=== PATIENT | male | born 1940 | race Caucasian/White ===

== ENCOUNTER 2018-10-07 17:22 | Inpatient (IN) | payer OTHER ==
--- NOTE | 2018-10-07 17:48 | PDOC ---
History of Present Illness - General Chief Complaint: SIRS, Suspected/Possible Stated Complaint: FEVER Time Seen by Provider: 10/07/18 17:27 - History of Present Illness Initial Comments: 10/07/18 21:00 The patient is a 77 year old male with a history of TBI, Cardiac Arrest, Subarachnoid hemorrhage, respiratory failure s/p trach and peg who presents from [place] for evaluation of fever. Per the patient's NH, the patient has been experiencing worsening fever since being discharged from [facility] 9 days ago. He has been spiking fevers to 105 over the past few days and was started on levaquin prior to being referred to the ED for further evaluation. The patient is non-responsive at baseline due to his TBI and ROS is unobtainable. Past History - Past Medical History Allergies/Adverse Reactions: Allergies Allergy/AdvReac Type Severity Reaction Status Date / Time No Known Allergies Allergy Verified 10/07/18 17:43 Home Medications: Ambulatory Orders Acetaminophen [Tylenol] 650 mg GT Q8H 10/07/18 Amantadine HCl [Amantadine] 100 mg GT BID 10/07/18 Famotidine [Pepcid -] 20 mg GT BID 10/07/18 Finasteride 5 mg GT DAILY 10/07/18 Heparin - 5,000 unit SQ TID 10/07/18 levoFLOXacin 750 MG IVPB [Levaquin 750 mg Premixed Ivpb -] 750 mg IVPB DAILY Cancer: Yes (bening prostatic hyperplasia) Cardiac Disorders: Yes (acute ME) CVA: No (traumatic brain injury) 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 No Apparent Distress HEENT: . No Pharyngeal Erythema, Tonsillar Exudate, Tonsillar Erythema Neck: Trach in place. No Cervical Lymphadenopathy Respiratory/Chest: Decreased breath sounds at the bases with bibasilar rales. No Crackles, Rhonchi, Wheezing Cardiovascular: Irregularly Irregular Rhythm, Regular Rate. No Murmur, Gallops, Rubs Gastrointestinal/Abdominal: Normal Bowel Sounds, Soft. Peg tub in place. No Guarding, Rebound, Tenderness Musculoskeletal: No CVA Tenderness Extremity: Normal Capillary Refill Integumentary: Normal Color, Dry, Warm Neurologic: Non-responsive at baseline Procedures - Central Line Central Line Lumen: triple Central Line Position: femoral (L) Anesthesia: 1% Lidocaine Amount of anesthesia (ccs): 4 Complications: none Post Central Line Insertion: sutured, good blood return ED Treatment Course - LABORATORY CBC & Chemistry Diagram: 10/08/18 05:10 10/08/18 05:10 - RADIOLOGY Radiology Studies Ordered: Category Date Time Status CHEST X-RAY PORTABLE* [RAD] Stat Radiology 10/07/18 17:46 Ordered Medical Decision Making - Critical Care Time Total Critical Care Time (minutes): 45 Critical Care Statement: The care of this patient involved high complexity decision making to prevent further life threatening deterioration of the patient 's condition and/or to evaluate & treat vital organ system(s) failure or risk of failure. - Medical Decision Making 10/07/18 20:06 The patient is a 77 year old male with a history of TBI, Cardiac Arrest, Subarachnoid hemorrhage, respiratory failure s/p trach and peg who presents from [place] for evaluation of fever. Differential includes but is not limited to: Sepsis, Central fever, Infectious, Metabolic Derangement. Given the patient's history and physical exam, we will obtain a cbc, cmp, lactate, vbg, coags, ua, urine culture, blood cultures, chest plain film to evaluate further. We will treat with tylenol, iv fluids, vanc, and zosyn. We will continue to monitor and reassess while here in the ED. 10/07/18 21:07 CBC, lactate, ua are unremarkable. CMP demonstrates elevations in the liver enzymes. Chest plain film demonstrates bilateral lower lobe infiltrates. We discussed the case with Neurology and MICU at [facility] Dr. Kee and Dr. Brownlee who felt that the patient did not require transfer at this time. We discussed the case with our ICU team who accepted the patient for ICU. The patient's BP has remained hypotensive despite fluid resuscitation. We discussed the critical nature of the patient's case with the patient's health care proxy Douglas Sanchez(Son) [phone] who requests that the patient remain full code and has given verbal consent for central line placement. We will continue to monitor and reassess while here in the ED. *DC/Admit/Observation/Transfer Diagnosis at time of Disposition: Sepsis Qualifiers: Sepsis type: sepsis due to unspecified organism Qualified Code(s): A41.9 - Sepsis, unspecified organism - Discharge Dispostion Condition at time of disposition: Guarded Decision to Admit order: Yes - Referrals - Patient Instructions - Post Discharge Activity
[2018-10-07 18:16] LABS: VENOUS PC02 41.3 mmHg (41-51); VENOUS PH 7.44 (7.31-7.41); VENOUS PO2 34.3 mmHg (30-40)
[2018-10-07 18:20] LABS: BASO % 0.2 % (0-2.0); HEMATOCRIT 28.5 % (35.4-49); HEMOGLOBIN 9.5 GM/dL (11.7-16.9); LYMPH % 10.5 % (8-40); MCH 29.3 pg (25.7-33.7); MCHC 33.4 g/dl (32.0-35.9); MEAN CELL VOLUME 87.8 fl (80-96); MEAN PLT VOLUME 10.4 fl (7.5-11.1); MONO % 6.1 % (3.8-10.2); NEUT % 83.2 % (42.8-82.8); PLATELET COUNT 190 K/MM3 (134-434); RBC 3.24 M/mm3 (4.00-5.60); RDW 14.2 % (11.9-15.9); WHITE BLOOD COUNT 6.1 K/mm3 (4.0-10.0)
[2018-10-07] MEDS ORDERED: SODIUM CHLORIDE 1,000 ML IV STA ×2 (18:31→22:08)
[2018-10-07] MEDS ORDERED: PIPERACILLIN/TAZOB 4.5 GM 4.5 GM in DEXTROSE 5%-WATER 100 ML IVPB ONE (18:31)
[2018-10-07] MEDS ORDERED: VANCOMYCIN 1,000 MG in DEXTROSE 5%-WATER - 250 ML IVPB ONE (18:31)
[2018-10-07] MEDS ORDERED: ACETAMINOPHEN 1000 MG/100 ML VIAL (NON FORMULARY) IVPB ONE (18:31)
[2018-10-07 18:34] LABS: URINE APPEARANCE CLEAR; URINE BILIRUBIN NEGATIVE (NEGATIVE); URINE COLOR DK YELLOW; URINE GLUCOSE (UA) NEGATIVE (NEGATIVE); URINE KETONE NEGATIVE (NEGATIVE); URINE LEUK ESTERASE NEGATIVE (NEGATIVE); URINE NITRITE NEGATIVE (NEGATIVE); URINE PROTEIN TRACE (NEGATIVE)
[2018-10-07] MEDS ORDERED: PIPERACILLIN/TAZOB 4.5 GM 4.5 GM/100 ML BAG IVPB ONE (18:34)
[2018-10-07] MEDS ORDERED: VANCOMYCIN 1 GRAM (PRE-DOCKED) 1,000 MG/250 ML BAG IVPB ONE (18:34)
[2018-10-07] MEDS ORDERED: ACETAMINOPHEN INJECTION 100 ML IVPB ONE (18:34)
[2018-10-07 18:36] LABS: INR 2.04 (0.83-1.09); PROTHROMBIN TIME (PATIENT) 24.2 SEC (9.7-13.0)
[2018-10-07 18:38] LABS: ACTIVATED PTT 31.8 SECONDS (25.2-36.5)
[2018-10-07 18:45] LABS: ALBUMIN 1.7 g/dl (3.4-5.0); BILIRUBIN,TOTAL 0.6 mg/dL (0.2-1); BLOOD UREA NITROGEN 28.1 mg/dL (7-18); CALCIUM 7.2 mg/dL (8.5-10.1); CREATININE 0.7 mg/dL (0.55-1.3); TOT PROT 5.1 g/dl (6.4-8.2)
--- NOTE | 2018-10-07 18:56 | PDOC ---
Documentation entered by Petra Shane SCRIBE, acting as scribe for Lora Brownlee MD. Lora Brownlee MD: This documentation has been prepared by the vikaibe, Petra Shane SCRIBE, under my direction and personally reviewed by me in its entirety. I confirm that the documentation accurately reflects all work, treatment, procedures, and medical decision making performed by me. Attending Attestation - Resident Resident Name: Wyatt Moctezuma - ED Attending Attestation I have performed the following: I have examined & evaluated the patient, The case was reviewed & discussed with the resident, I agree w/resident's findings & plan, Exceptions are as noted - HPI HPI: 10/07/18 18:37 The patient is a 77-year-old male with a past medical history significant for C- spine fracture, trach in place, peg tube in place, TBI and hx of Cardiac arrest (2 weeks ago) ad subarachnoid hemorrhage presents to the emergency department via EMS from [facility] with a fever. Unable to obtain a history from the patient due to clinical status. History obtained from the staff at the [facility]. Per [facility], the patients been having 4-5 days of fever, the patient was started on Levaquin and 650 Tylenol today, the last dose was 3:45 pm. Allergies: NKDA PCP: Dr. Kristal Julio. - Physicial Exam PE: 10/07/18 18:46 GENERAL: The patient is not responsive to examiners, He appears diaphoretic, temp 104.7 ENT: Trach in place, Dry mucous membranes, eyes intermittently opening spontaneously NECK: Cervical collar loosely applied LUNGS: Rhoncerous, coarse breath sounds noted bilaterally at bases, no wheezes, no crackles. HEART: Irregularly irregular, faint heart sounds ABDOMEN: Soft, G tube in place EXTREMITIES: No obvious deformities noted NEUROLOGICAL: Unresponsive to examiner, (+) voluntary movements of the legs, Unable to test Sensation SKIN: decubitus noted, stage 2, no surrounding erythema 10/07/18 18:53 - Critical Care Time Total Critical Care Time: 60 Critical Care Statement: The care of this patient involved high complexity decision making to prevent further life threatening deterioration of the patient 's condition and/or to evaluate & treat vital organ system(s) failure or risk of failure. - Medical Decision Making 10/07/18 18:49 Afib rate of 80 bpm, axis nml, intervals nml, no st elevation or depression, t waves inverted v3, low voltage 77 yo M presenting with fevers from [facility] Pt has no records in this system, was sent there from [facility] Briefly, pt s/p subdural hemorrhage requiring evacuation and cardiac arrest with resulting tracheostomy and feeding tube Per report, pt has been noted to have fevers for the past 4 days was given a dose of Levaquin and Tylenol Pt can not provide any historical information DD: Pt fever could be the result of Pneumonia, UTI, Intra-abdominal pathology, decubitus Pt has had Intracranial pathology and fever may be due to central cause Will do: Labs CXR CT head/cspine/chest Pt signed out to Dr Muro CXR: bibasilar infiltrate/effusion Temp 104.7 will give Tylenol IV (pt had recent subdural) 10/07/18 19:24 Call placed to [facility] transfer center for ER to ER transfer. Case discussed with Dr. Pearl Thomas. 10/07/18 19:45 Case discussed with Neurosurgery Dr. Arechiga. 10/07/18 20:04 [facility] ICU called. Spoke with Dr. Gardner 10/09/18 07:24
--- NOTE | 2018-10-07 20:12 | PDOC ---
*Physical Exam - Vital Signs Last Vital Signs Temp Pulse Resp BP Pulse Ox 102.4 F H 82 15 84/64 L 99 10/07/18 19:42 10/07/18 19:41 10/07/18 17:52 10/07/18 19:41 10/07/18 19:41 ED Treatment Course - LABORATORY CBC & Chemistry Diagram: 10/07/18 18:03 10/07/18 18:03 - ADDITIONAL ORDERS Additional order review: Laboratory Results 10/07/18 10/07/18 10/07/18 18:03 18:03 18:03 PT with INR INR PTT (Actin FS) VBG pH POC VBG pCO2 POC VBG pO2 VBG HCO3 VBG O2 Sat (Britney) VBG Base Excess Sodium 131 L Potassium 5.0 Chloride 97 L Carbon Dioxide 27 Anion Gap 7 L BUN 28.1 H Creatinine 0.7 Est GFR (CKD-EPI)AfAm 105.50 Est GFR (CKD-EPI)NonAf 91.03 Random Glucose 125 H Lactic Acid 1.5 Calcium 7.2 L Total Bilirubin 0.6 AST 393 H ALT 638 H Alkaline Phosphatase 231 H Troponin I 0.03 Total Protein 5.1 L Albumin 1.7 L Urine Color Urine Appearance Urine pH Ur Specific [place] Urine Protein Urine Glucose (UA) Urine Ketones Urine Blood Urine Nitrite Urine Bilirubin Urine Urobilinogen Ur Leukocyte Esterase 10/07/18 10/07/18 10/07/18 18:03 18:03 18:00 PT with INR 24.20 H INR 2.04 H PTT (Actin FS) 31.8 VBG pH 7.44 H POC VBG pCO2 41.3 POC VBG pO2 34.3 VBG HCO3 27.3 VBG O2 Sat (Britney) 63.3 L VBG Base Excess 3.3 H Sodium Potassium Chloride Carbon Dioxide Anion Gap BUN Creatinine Est GFR (CKD-EPI)AfAm Est GFR (CKD-EPI)NonAf Random Glucose Lactic Acid Calcium Total Bilirubin AST ALT Alkaline Phosphatase Troponin I Total Protein Albumin Urine Color Dk yellow Urine Appearance Clear Urine pH 5.0 Ur Specific [place] 1.022 Urine Protein Trace Urine Glucose (UA) Negative Urine Ketones Negative Urine Blood Negative Urine Nitrite Negative Urine Bilirubin Negative Urine Urobilinogen 1.0 Ur Leukocyte Esterase Negative 10/07/18 18:03 RBC 3.24 L MCV 87.8 MCHC 33.4 RDW 14.2 MPV 10.4 Neutrophils % 83.2 H Lymphocytes % 10.5 Monocytes % 6.1 Eosinophils % 0.0 Basophils % 0.2 - Medications Given in the ED: ED Medications Discontinued Medications Generic Name Dose Route Start Last Admin Trade Name Radha PRN Reason Stop Dose Admin Acetaminophen 1,000 mg 10/07/18 18:31 10/07/18 18:43 Ofirmev Injection - IVPB 10/07/18 18:32 1,000 mg ONCE ONE Administration Sodium Chloride 1,000 mls @ 1,000 mls/hr 10/07/18 18:31 10/07/18 18:43 Normal Saline - IV 10/07/18 19:30 1,000 mls/hr ASDIR STA Administration Vancomycin HCl 1,000 mg/ 250 mls @ 166.667 mls/hr 10/07/18 18:31 10/07/18 19: 13 Dextrose IVPB 10/07/18 20:00 166.667 mls/hr ONCE ONE Administration Piperacillin Sod/Tazobactam 100 mls @ 200 mls/hr 10/07/18 18:31 10/07/18 18: 43 Sod 4.5 gm/ Dextrose IVPB 10/07/18 19:00 200 mls/hr ONCE ONE Administration Protocol Medical Decision Making - Medical Decision Making 10/07/18 20:10 Received on signout. Pt is febrile; from [place]; trauma 2 weeks ago; seen at [facility] and stabilized and sent to [place]. Pt is on trach collar; bedridden; TBI and SAH x 2 in the past 2 weeks after falling down steps. Pt originally seen in [facility]; we attempted to transfer the pt there, as he has all records there; however [facility] docs are refusing pt accept, as they feel that this is a new fever unrelated to old injuries. 10/08/18 03:37 Pt admitted to ICU. *DC/Admit/Observation/Transfer Diagnosis at time of Disposition: Sepsis - Discharge Dispostion Condition at time of disposition: Guarded - Referrals - Patient Instructions - Post Discharge Activity
[2018-10-07 20:17] LABS: PLATELET ESTIMATE ADEQUATE
--- NOTE | 2018-10-07 20:45 | CONSULT ---
Consultation: REQUESTING PROVIDER: Dr. Muro CONSULT REQUEST: We have been asked to medically evaluate this patient for ICU admission HISTORY OF PRESENT ILLNESS: Significant history obtained from chart paperwork, [facility] nursing staff, and patient's son (Douglas Lovelace [phone]). Patient is a 77 year old male with history of traumatic brain injury, subarachnoid hemorrhage, subdural hematoma, cardiac arrest, C4 spinous process fracture, Parkinson's disease, recently discharged from [facility] presents from [facility] due to fever reported for 8 days. Per [facility] nursing staff, patient has been intermittently febrile since discharge from [facility]. Further, discharge paperwork from [facility] reports the fever had been worked up: bronchoalveolar lavage culture grew Kelbsiella; treated with Ceftriaxone, repeat fevers later in hospital course also treated with Ceftriaxone. CT head at [facility] noted left subdural hematoma, left frontal subarrachnoid hemorrhage, right temporal intreaparenchymal hemorrhage without significant midline shift. C4 spinous process fracture noted. Patient noted to be hypotensive to 80s /40s. Central venous catheter placed in emergency department. Goals of care discussed with son who confirms patient is full code. Surgical history: knee surgery, cataract surgery, pacemaker placement PEG tube placement, tracheostomy placement, Allergies: No known drug, or food allergies Social history: Former smoker: quit 50 years ago. Denies excessive alcohol consumption. 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 REVIEW OF SYSTEMS: As per HPI. Unable to obtain further due to patient's clinical condition. PHYSICAL EXAMINATION Vital Signs - 24 hr 10/07/18 10/07/18 10/07/18 17:28 17:46 17:52 Temperature 104.7 F H 104.7 F H Pulse Rate 140 H Pulse Rate [ Apical] Respiratory 36 H 15 Rate Blood Pressure 101/65 Blood Pressure [Right Arm] O2 Sat by Pulse 100 Oximetry (%) 10/07/18 10/07/18 10/07/18 18:45 19:41 19:42 Temperature 102.4 F H 102.4 F H Pulse Rate 95 H Pulse Rate [ 82 Apical] Respiratory Rate Blood Pressure Blood Pressure 84/64 L [Right Arm] O2 Sat by Pulse 99 99 Oximetry (%) 10/07/18 20:10 Temperature Pulse Rate Pulse Rate [ Apical] Respiratory 26 H Rate Blood Pressure Blood Pressure [Right Arm] O2 Sat by Pulse Oximetry (%) GENERAL: Awake, grimaces to sternal rub. No acute distress. HEAD: Normocephalic. Scar anterior forehead. Bruising along left sided face. EYES: Pupils equal, round and reactive to light, extraocular movements intact, sclera anicteric, conjunctiva clear. No lid lag. EARS, NOSE, THROAT: Dry mucous membranes. Tracheostomy tube in place. No drainage noted. NECK: Supple, without lymphadenopathy. Central venous catheter in place. LUNGS: Mechanical breath sounds auscultated, with bilateral rhonchi. HEART: Irregular rate and rhythm. Normal S1 and S2 without murmur, rub or gallop. ABDOMEN: Soft, nontender, not distended, normoactive bowel sounds, no guarding, no rebound, no masses. Hepatomegaly palpated and percussed 3cm below costal margin. PEG tube in place, with ostomy clean, dry. EXTREMITIES: 1+ radial, dorsalis pedis pulses bilaterally. Warm, well-perfused. No cyanosis. No peripheral edema. NEUROLOGICAL: Patient moving extremities. Tracking movement with eyes. SKIN: Warm, dry. Deep tissue injury noted at right buttock, and sacrum. Laboratory Results - last 24 hr 10/07/18 10/07/18 10/07/18 18:00 18:03 18:03 WBC 6.1 RBC 3.24 L Hgb 9.5 L Hct 28.5 L MCV 87.8 MCH 29.3 MCHC 33.4 RDW 14.2 Plt Count 190 MPV 10.4 Absolute Neuts (auto) 5.1 Neutrophils % 83.2 H Neutrophils % (Manual) 87.0 H Band Neutrophils % 1.0 Lymphocytes % 10.5 Lymphocytes % (Manual) 10.0 Monocytes % 6.1 Monocytes % (Manual) 2 L Eosinophils % 0.0 Eosinophils % (Manual) 0.0 Basophils % 0.2 Basophils % (Manual) 0.0 Nucleated RBC % 0 Platelet Estimate Adequate PT with INR 24.20 H INR 2.04 H PTT (Actin FS) 31.8 VBG pH POC VBG pCO2 POC VBG pO2 VBG HCO3 VBG O2 Sat (Britney) VBG Base Excess Sodium Potassium Chloride Carbon Dioxide Anion Gap BUN Creatinine Est GFR (CKD-EPI)AfAm Est GFR (CKD-EPI)NonAf Random Glucose Lactic Acid Calcium Total Bilirubin AST ALT Alkaline Phosphatase Troponin I Total Protein Albumin Urine Color Dk yellow Urine Appearance Clear Urine pH 5.0 Ur Specific [place] 1.022 Urine Protein Trace Urine Glucose (UA) Negative Urine Ketones Negative Urine Blood Negative Urine Nitrite Negative Urine Bilirubin Negative Urine Urobilinogen 1.0 Ur Leukocyte Esterase Negative Acetaminophen 10/07/18 10/07/18 10/07/18 18:03 18:03 18:03 WBC RBC Hgb Hct MCV MCH MCHC RDW Plt Count MPV Absolute Neuts (auto) Neutrophils % Neutrophils % (Manual) Band Neutrophils % Lymphocytes % Lymphocytes % (Manual) Monocytes % Monocytes % (Manual) Eosinophils % Eosinophils % (Manual) Basophils % Basophils % (Manual) Nucleated RBC % Platelet Estimate PT with INR INR PTT (Actin FS) VBG pH 7.44 H POC VBG pCO2 41.3 POC VBG pO2 34.3 VBG HCO3 27.3 VBG O2 Sat (Britney) 63.3 L VBG Base Excess 3.3 H Sodium 131 L Potassium 5.0 Chloride 97 L Carbon Dioxide 27 Anion Gap 7 L BUN 28.1 H Creatinine 0.7 Est GFR (CKD-EPI)AfAm 105.50 Est GFR (CKD-EPI)NonAf 91.03 Random Glucose 125 H Lactic Acid 1.5 Calcium 7.2 L Total Bilirubin 0.6 AST 393 H ALT 638 H Alkaline Phosphatase 231 H Troponin I Total Protein 5.1 L Albumin 1.7 L Urine Color Urine Appearance Urine pH Ur Specific [place] Urine Protein Urine Glucose (UA) Urine Ketones Urine Blood Urine Nitrite Urine Bilirubin Urine Urobilinogen Ur Leukocyte Esterase Acetaminophen 10/07/18 18:03 WBC RBC Hgb Hct MCV MCH MCHC RDW Plt Count MPV Absolute Neuts (auto) Neutrophils % Neutrophils % (Manual) Band Neutrophils % Lymphocytes % Lymphocytes % (Manual) Monocytes % Monocytes % (Manual) Eosinophils % Eosinophils % (Manual) Basophils % Basophils % (Manual) Nucleated RBC % Platelet Estimate PT with INR INR PTT (Actin FS) VBG pH POC VBG pCO2 POC VBG pO2 VBG HCO3 VBG O2 Sat (Britney) VBG Base Excess Sodium Potassium Chloride Carbon Dioxide Anion Gap BUN Creatinine Est GFR (CKD-EPI)AfAm Est GFR (CKD-EPI)NonAf Random Glucose Lactic Acid Calcium Total Bilirubin AST ALT Alkaline Phosphatase Troponin I 0.03 Total Protein Albumin Urine Color Urine Appearance Urine pH Ur Specific [place] Urine Protein Urine Glucose (UA) Urine Ketones Urine Blood Urine Nitrite Urine Bilirubin Urine Urobilinogen Ur Leukocyte Esterase Acetaminophen 8.8 L ASSESSMENT/PLAN: Neurologic History of traumatic brain injury, subarrachnoid hemorrhage Parkinson's disease -CT head non contrast -CT cervical spine -Amantadine 100mg PO BID -Aspiration precautions Cardiovascular History of cardiac arrest Afib -EKG shows Afib at 80BPM. Currently rate controlled. Uncertain duration; son states that patient may have history of 'irregular heart rate'. -Will hold off on anticoagulation given recent brain bleed -Cardiac monitoring -Cardiac ECHO Pulmonary Acute on chronic hypoxic respiratory failure -Patient is s/p tracheostomy. Ventilator settings (increased) RR 10, TV 500, FiO2 80%, PEEP 5 -Chest radiograph reveals questionable infiltrates in right lower lobe -ABG pH 7.47, pCO2 35.5, pO2 153, HCO3 25.7 -Maintain oxygen saturation greater than 90% Infectious disease Fevers potentially central in origin given patient's history of traumatic brain injury, and subarachnoid hemorrhage. However cannot rule out shock, secondary to sepsis. -Lactic acid 1.5 -> 0.9 upon repeat -Follow blood cultures, urine cultures -Empiric Vancomycin, Zosyn -Patient received IV normal saline 30mL/ kg as bolus. Continue maintenance fluids at 75mL/ hour -Infectious disease consult (Dr. Gonzalez) Gastrointestinal Transaminitis: AST 393 ALT 638 Alkaline phostphatase 231, total bilirubin 0.6 -Appears hepatocellular pattern; may be secondary to shock liver from recent cardiac arrest. -Will need to obtain prior labs from [facility] -Acetamenophen level 8.8 -PEG tube site clean, dry. -Right upper quadrant ultrasound Hematology -PT 24.2, INR 2.04 -likely secondary to poor hepatic function. -No oral anticoagulant medications noted in [facility] medicine reconciliation -Follow CBC, PT/INR FEN -IV normal saline -Hyponatremic, hypochloremic. Follow CMP, replete as necessary -NPO Prophylaxis -SCDs bilateral lower extremities. Holding chemical anticoagulation due to recent intracranial bleeding. Disposition: We will continue to follow the patient. Thank you for this consultative opportunity. Visit type - Emergency Visit Emergency Visit: Yes ED Registration Date: 10/07/18 Care time: The patient presented to the Emergency Department on the above date and was hospitalized for further evaluation of their emergent condition. - New Patient This patient is new to me today: Yes Date on this admission: 10/07/18 - Critical Care Critical Care patient: Yes Total Critical Care Time (in minutes): 37 Critical Care Statement: The care of this patient involved high complexity decision making to prevent further life threatening deterioration of the patient 's condition and/or to evaluate & treat vital organ system(s) failure or risk of failure.
--- NOTE | 2018-10-07 22:54 | HP ---
CHIEF COMPLAINT: fever PCP: Sumanth HISTORY OF PRESENT ILLNESS: 77-year-old male with a past medical history significant for C-spine fracture, trach in place, peg tube in place, TBI and hx of Cardiac arrest (2 weeks ago), afib, ad subarachnoid/subdural hemorrhage (evaluated by ANDREA) presents to the emergency department via EMS from [facility] with a fever. Unable to obtain a history from the patient due to clinical status. History obtained from the staff at the [place]. Patient was allegedly having fevers even at [facility] and was worked up already. ER course was notable for: (1) head ct (2) vancomycin (3) zosyn Recent Travel: unknown PAST MEDICAL HISTORY: as above PAST SURGICAL HISTORY: unknown Social History: Smoking:unknown Alcohol: unknown Drugs: unknown Family History: unknown Allergies No Known Allergies Allergy (Verified 10/07/18 17:43) HOME MEDICATIONS: Home Medications Medication Instructions Recorded Acetaminophen [Tylenol] 650 mg GT Q8H 10/07/18 Amantadine HCl [Amantadine] 100 mg GT BID 10/07/18 Famotidine [Pepcid -] 20 mg GT BID 10/07/18 Finasteride 5 mg GT DAILY 10/07/18 Heparin - 5,000 unit SQ TID 10/07/18 levoFLOXacin 750 MG IVPB [Levaquin 750 mg IVPB DAILY 10/07/18 750 mg Premixed Ivpb -] REVIEW OF SYSTEMS - unable to obtain PHYSICAL EXAMINATION Vital Signs - 24 hr 10/07/18 10/07/18 10/07/18 17:28 17:46 17:52 Temperature 104.7 F H 104.7 F H Pulse Rate 140 H Pulse Rate [ Apical] Respiratory 36 H 15 Rate Blood Pressure 101/65 Blood Pressure [Right Arm] O2 Sat by Pulse 100 Oximetry (%) 10/07/18 10/07/18 10/07/18 18:45 19:41 19:42 Temperature 102.4 F H 102.4 F H Pulse Rate 95 H Pulse Rate [ 82 Apical] Respiratory Rate Blood Pressure Blood Pressure 84/64 L [Right Arm] O2 Sat by Pulse 99 99 Oximetry (%) 10/07/18 10/07/18 10/07/18 20:10 20:53 22:45 Temperature Pulse Rate Pulse Rate [ 84 Apical] Respiratory 26 H 18 23 H Rate Blood Pressure Blood Pressure 92/49 L [Right Arm] O2 Sat by Pulse 100 Oximetry (%) GENERAL: unresponsive HEAD: Normal with no signs of trauma. EYES: Pupils equal, round and reactive to light, extraocular movements intact, sclera anicteric, conjunctiva clear. No lid lag. EARS, NOSE, THROAT: Ears normal, nares patent, oropharynx clear without exudates. Moist mucous membranes. NECK: trach+ LUNGS: coarse breath sounds b/l HEART: Regular rate and rhythm, normal S1 and S2 without murmur, rub or gallop. ABDOMEN: Soft, nontender, not distended, normoactive bowel sounds, no guarding, no rebound, no masses/ PEG MUSCULOSKELETAL: Normal range of motion at all joints. No bony deformities or tenderness. No CVA tenderness. UPPER EXTREMITIES: 2+ pulses, warm, well-perfused. No cyanosis. No clubbing. No peripheral edema. LOWER EXTREMITIES: 2+ pulses, warm, well-perfused. No calf tenderness. No peripheral edema. NEUROLOGICAL: s/p TBI PSYCHIATRIC: unresponsive SKIN: Warm, dry, normal turgor, no rashes or lesions noted, normal capillary refill. reported stage 1 sacral ulcer Laboratory Results - last 24 hr 10/07/18 10/07/18 10/07/18 18:00 18:03 18:03 WBC 6.1 RBC 3.24 L Hgb 9.5 L Hct 28.5 L MCV 87.8 MCH 29.3 MCHC 33.4 RDW 14.2 Plt Count 190 MPV 10.4 Absolute Neuts (auto) 5.1 Neutrophils % 83.2 H Neutrophils % (Manual) 87.0 H Band Neutrophils % 1.0 Lymphocytes % 10.5 Lymphocytes % (Manual) 10.0 Monocytes % 6.1 Monocytes % (Manual) 2 L Eosinophils % 0.0 Eosinophils % (Manual) 0.0 Basophils % 0.2 Basophils % (Manual) 0.0 Nucleated RBC % 0 Platelet Estimate Adequate PT with INR 24.20 H INR 2.04 H PTT (Actin FS) 31.8 VBG pH POC VBG pCO2 POC VBG pO2 VBG HCO3 VBG O2 Sat (Britney) VBG Base Excess Sodium Potassium Chloride Carbon Dioxide Anion Gap BUN Creatinine Est GFR (CKD-EPI)AfAm Est GFR (CKD-EPI)NonAf Random Glucose Lactic Acid Calcium Total Bilirubin AST ALT Alkaline Phosphatase Troponin I Total Protein Albumin Urine Color Dk yellow Urine Appearance Clear Urine pH 5.0 Ur Specific [place] 1.022 Urine Protein Trace Urine Glucose (UA) Negative Urine Ketones Negative Urine Blood Negative Urine Nitrite Negative Urine Bilirubin Negative Urine Urobilinogen 1.0 Ur Leukocyte Esterase Negative Acetaminophen 10/07/18 10/07/18 10/07/18 18:03 18:03 18:03 WBC RBC Hgb Hct MCV MCH MCHC RDW Plt Count MPV Absolute Neuts (auto) Neutrophils % Neutrophils % (Manual) Band Neutrophils % Lymphocytes % Lymphocytes % (Manual) Monocytes % Monocytes % (Manual) Eosinophils % Eosinophils % (Manual) Basophils % Basophils % (Manual) Nucleated RBC % Platelet Estimate PT with INR INR PTT (Actin FS) VBG pH 7.44 H POC VBG pCO2 41.3 POC VBG pO2 34.3 VBG HCO3 27.3 VBG O2 Sat (Britney) 63.3 L VBG Base Excess 3.3 H Sodium 131 L Potassium 5.0 Chloride 97 L Carbon Dioxide 27 Anion Gap 7 L BUN 28.1 H Creatinine 0.7 Est GFR (CKD-EPI)AfAm 105.50 Est GFR (CKD-EPI)NonAf 91.03 Random Glucose 125 H Lactic Acid 1.5 Calcium 7.2 L Total Bilirubin 0.6 AST 393 H ALT 638 H Alkaline Phosphatase 231 H Troponin I Total Protein 5.1 L Albumin 1.7 L Urine Color Urine Appearance Urine pH Ur Specific [place] Urine Protein Urine Glucose (UA) Urine Ketones Urine Blood Urine Nitrite Urine Bilirubin Urine Urobilinogen Ur Leukocyte Esterase Acetaminophen 10/07/18 18:03 WBC RBC Hgb Hct MCV MCH MCHC RDW Plt Count MPV Absolute Neuts (auto) Neutrophils % Neutrophils % (Manual) Band Neutrophils % Lymphocytes % Lymphocytes % (Manual) Monocytes % Monocytes % (Manual) Eosinophils % Eosinophils % (Manual) Basophils % Basophils % (Manual) Nucleated RBC % Platelet Estimate PT with INR INR PTT (Actin FS) VBG pH POC VBG pCO2 POC VBG pO2 VBG HCO3 VBG O2 Sat (Britney) VBG Base Excess Sodium Potassium Chloride Carbon Dioxide Anion Gap BUN Creatinine Est GFR (CKD-EPI)AfAm Est GFR (CKD-EPI)NonAf Random Glucose Lactic Acid Calcium Total Bilirubin AST ALT Alkaline Phosphatase Troponin I 0.03 Total Protein Albumin Urine Color Urine Appearance Urine pH Ur Specific [place] Urine Protein Urine Glucose (UA) Urine Ketones Urine Blood Urine Nitrite Urine Bilirubin Urine Urobilinogen Ur Leukocyte Esterase Acetaminophen 8.8 L ekg reviewed ASSESSMENT/PLAN: #Fever- likely central fever, less likely sepsis as patient was likely worked up at previous hospital however will treat empirically with antibiotics for now , martins culture. May possibly be sepsis secondary to HAP as Fio2 requirement has increased to 80% fio2, possible cxr infiltrates. Lactate was wnl, borderline low bp. -icu for monitoring -blood cultures x2 -urine culture -ua -sputum culture -zosyn/vancomycin empirically -echo -id consult -pulm consult- Dr. Alex -obtain records from [facility] about fever w/u -abg, adjust vent settings accordly #Subdural/subarachnoid bleed - asssessed at [facility] already -head CT , c spine ct -avoid nsaids, asa, heparin sc -consider ANDREA eval -discuss with family goals of care #afib - no ac -metoprolol for rate control -Tube feeds -bgm -scds for dv ppx see resident note for details Visit type - Emergency Visit Emergency Visit: Yes Care time: The patient presented to the Emergency Department on the above date and was hospitalized for further evaluation of their emergent condition. - New Patient This patient is new to me today: Yes Date on this admission: 10/07/18 - Critical Care Critical Care patient: No
[2018-10-07 23:02] LABS: ARTERIAL BLD GAS O2 SATURATION 99.5 % (95-98); ARTERIAL BLOOD GAS BASE EXCESS 2.5 meq/l (-2-2); ARTERIAL BLOOD GAS PCO2 35.5 mmHg (35-45); ARTERIAL BLOOD GAS PO2 153 mmHg (80-105); ARTERIAL BLOOD GAS pH 7.47 (7.35-7.45)
[2018-10-07 23:04] LABS: ALLENS TEST POSITIVE
[2018-10-07] MEDS: SODIUM CHLORIDE 1,000 ML IV SCH (23:27)
[2018-10-08] MEDS ORDERED: VANCOMYCIN 1 GM in D5W (PRE-DOCKED) 1,000 MG/250 ML IVPB ONE ×2 (00:53→06:00)
[2018-10-08] MEDS ORDERED: PIPERACILLIN/TAZOBACTAM 4.5 GM VIAL IVPB ONE ×3 (02:16→17:17)
[2018-10-08] MEDS ORDERED: DEXTROSE 5%-WATER 100 ML IVPB ONE ×3 (02:16→17:17)
[2018-10-08] MEDS ORDERED: PIPERACILLIN/TAZOB 4.5 GM 4.5 GM in DEXTROSE 5%-WATER 100 ML IVPB ONE ×2 (03:00→15:00)
[2018-10-08 05:51] LABS: HEMOGLOBIN 9.4 GM/dL (11.7-16.9)
[2018-10-08 05:59] LABS: BASO % 0.3 % (0-2.0); HEMATOCRIT 28.3 % (35.4-49); LYMPH % 16.5 % (8-40); MCH 29.2 pg (25.7-33.7); MCHC 33.3 g/dl (32.0-35.9); MEAN CELL VOLUME 87.7 fl (80-96); MEAN PLT VOLUME 9.9 fl (7.5-11.1); MONO % 7.9 % (3.8-10.2); NEUT % 75.3 % (42.8-82.8); PLATELET COUNT 150 K/MM3 (134-434); RBC 3.22 M/mm3 (4.00-5.60); RDW 13.8 % (11.9-15.9); WHITE BLOOD COUNT 6.3 K/mm3 (4.0-10.0)
[2018-10-08] MEDS: INSULIN SLIDING SCALE (NOVOLOG) 1 VIAL SQ SCH ×4 (06:16→21:33)
[2018-10-08 06:24] LABS: ALBUMIN 1.5 g/dl (3.4-5.0); BILIRUBIN,DIRECT 0.5 mg/dL (0.0-0.2); BILIRUBIN,TOTAL 0.8 mg/dL (0.2-1); BLOOD UREA NITROGEN 23.6 mg/dL (7-18); CALCIUM 7.1 mg/dL (8.5-10.1); CREATININE 0.6 mg/dL (0.55-1.3); POTASSIUM 4.3 mmol/L (3.5-5.1); TOT PROT 4.5 g/dl (6.4-8.2)
--- NOTE | 2018-10-08 09:13 | CON.ID ---
Consult Consult Specialty:: infectious disease Reason for Consultation:: fever - History of Present Illness Chief Complaint: fever History of Present Illness: 77 yo ma PMH of cardiac arrest, SAH/SDH after fall on stairs, s/p trach and PEG transferred to SNF on 09/29 he has had intermittent fevers both there and after transfer per ER noted he was treated for pneumonia with rocephin in the hospital he was also bronched in the hospital currently full code admitted to ICU for fever and hypotension - History Source History Provided By: Medical Record Limitations to Obtaining History: Clinical Condition - Past Medical History SUB PRIOR: Yes: Parkinson's, Other (SAH/SDH, c4 spinous fracture) Cardio/Vascular: Yes: Other (cardiac arrest) Pulmonary: Yes: Pneumonia, Previously Intubated (now with trach) - Past Surgical History Past Surgical History: Yes: Cataract Removal, Permanent Pacemaker Additional Surgical History: tracheostomy, PEG, knee surgery - Alcohol/Substance Use Hx Alcohol Use: (trach non verbal) History of Substance Use: reports: None - Smoking History Smoking history: Unknown if ever smoked Have you smoked in the past 12 months: No - Social History Usual Living Arrangement: Prison ADL: Support Services 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 History of Recent Travel: No Home Medications - Allergies Allergies/Adverse Reactions: Allergies Allergy/AdvReac Type Severity Reaction Status Date / Time No Known Allergies Allergy Verified 10/07/18 17:43 - Home Medications Home Medications: Ambulatory Orders Acetaminophen [Tylenol] 650 mg GT Q8H 10/07/18 Amantadine HCl [Amantadine] 100 mg GT BID 10/07/18 Famotidine [Pepcid -] 20 mg GT BID 10/07/18 Finasteride 5 mg GT DAILY 10/07/18 Heparin - 5,000 unit SQ TID 10/07/18 levoFLOXacin 750 MG IVPB [Levaquin 750 mg Premixed Ivpb -] 750 mg IVPB DAILY Family Disease History - Family Disease History Family History: Unable to Obtain Review of Systems Unable to obtain ROS, reason: per HPI Physical Exam Vital Signs: Vital Signs Temperature 100.7 F H 10/08/18 06:00 Pulse Rate 77 10/08/18 08:28 Respiratory Rate 17 10/08/18 08:28 Blood Pressure 90/40 L 10/08/18 06:00 O2 Sat by Pulse Oximetry (%) 95 10/08/18 08:28 Constitutional: Yes: Thin Eyes: Yes: Conjunctiva Clear HENT: Yes: Other (fading ecchymoses on his head) Neck: Yes: Other (tracheostomy) Cardiovascular: Yes: Regular Rate and Rhythm Respiratory: Yes: CTA Bilaterally, Diminished Gastrointestinal: Yes: Normal Bowel Sounds, Soft, Other (gt site clean) ...Rectal Exam: Yes: Deferred Renal/: Yes: Hinkle Present Extremities: Yes: WNL Edema: No Integumentary: Yes: Other (bilateral hip deep tissue injury) Labs: CBC, BMP 10/08/18 05:10 10/08/18 05:10 Imaging - Results Chest X-ray: Report Reviewed, Image Reviewed (RLL infiltrate/atelectasis/fluid) Cat Scan: Pending Problem List - Problems (1) Sepsis Code(s): A41.9 - SEPSIS, UNSPECIFIED ORGANISM Qualifiers: Sepsis type: sepsis due to unspecified organism Qualified Code(s): A41.9 - Sepsis, unspecified organism (2) Pneumonia Code(s): J18.9 - PNEUMONIA, UNSPECIFIED ORGANISM (3) Chronic respiratory failure Code(s): J96.10 - CHRONIC RESPIRATORY FAILURE, UNSP W HYPOXIA OR HYPERCAPNIA (4) TBI (traumatic brain injury) Code(s): S06.9X9A - UNSP INTRACRANIAL INJURY W LOC OF UNSP DURATION, INIT Assessment/Plan fever/hypotension- sepsis persistent fevers- most likely central but with abnormal cxray will continue broad spectrm antibiotics for HAP and evaluate clinical response f/u cultures continue vancomycin and zosyn chronic resp failure s/p TBI with SAH/SDH d/w family law attorney, d/w PMD
[2018-10-08] MEDS ORDERED: PT OWN MED DRAWER 7, Y5N ONE ×3 (09:21→12:22)
[2018-10-08] MEDS: RANITIDINE HCL 150 MG/10 ML UNIT-DOSE GT SCH ×2 (09:23→21:29)
[2018-10-08] MEDS: FINASTERIDE 5 MG TABLET (FP) NR SCH (09:23)
[2018-10-08] MEDS: MUPIROCIN 2% TOPICAL OINTMENT FOR DECOLONIZATION NS SCH ×2 (09:23→21:29)
[2018-10-08] MEDS ORDERED: RANITIDINE HCL 150 MG TABLET (FP) PO SCH (10:00)
[2018-10-08] MEDS ORDERED: HEPARIN NA (PORCINE) 5,000 UNITS/ML 1ML VIAL SQ SCH (10:00)
--- NOTE | 2018-10-08 10:24 | CONSULT ---
Consult - text type - Consultation Consultation Note: PULM/CCM Pt seen and examined in ICU CC: fever, hypotension HPI: (hyx obtained from medical record) Briefly pt is a 77-year-old male with a past medical history significant for fall, tbi, C-spine fracture, cardiac arrest now s/p trach/PEG vent dependent recently discharged to [place] with persistent fever from [facility] presents to the emergency department via EMS from [facility] with a fever and border line BP. Appeared to be on LVQ as out pt. Treated with empiric abx and IVF. Has ? bilateral infitrates on CXR unknown if persistent as well. Admitted by resident team overnight. Did not require vasopressors. 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 Home Medications Medication Instructions Recorded Acetaminophen [Tylenol] 650 mg GT Q8H 10/07/18 Amantadine HCl [Amantadine] 100 mg GT BID 10/07/18 Famotidine [Pepcid -] 20 mg GT BID 10/07/18 Finasteride 5 mg GT DAILY 10/07/18 Heparin - 5,000 unit SQ TID 10/07/18 levoFLOXacin 750 MG IVPB [Levaquin 750 mg IVPB DAILY 10/07/18 750 mg Premixed Ivpb -] Vital Signs Temp 100.6 F H 10/08/18 08:00 Pulse 77 10/08/18 08:28 Resp 17 10/08/18 09:00 BP 79/56 L 10/08/18 08:00 Pulse Ox 97 10/08/18 09:00 Intake & Output 10/07/18 10/07/18 10/08/18 11:59 23:59 11:59 Intake Total 900 Output Total 200 900 Balance -200 0 Weight 73.028 kg 73.085 kg Intake: IV 600 Normal Saline - 1,000 ml 600 @ 75 mls/hr IV ASDIR LUTHER Rx#:[id number] IVPB 300 Output: Urine 200 900 Hinkle 200 900 Other: Voiding Method Indwelling Catheter Indwelling Catheter Height 5 ft 8 in 5 ft 8 in Body Mass Index (BMI) 24.5 24.5 Weight Measurement Method Built in [facility] Current Medications Amantadine HCl (Symmetrel -) 100 mg PO BID [facility] Chlorhexidine Gluconate (Hibiclens For Decolonization -) 1 applic TP HS L[facility] Finasteride (Proscar -) 5 mg NR DAILY [facility] Last Admin: 10/08/18 09:23 Dose: 5 mg Sodium Chloride (Normal Saline -) 1,000 mls @ 75 mls/hr IV ASDIR [facility] Last Admin: 10/07/18 23:27 Dose: 75 mls/hr Vancomycin HCl (Vancomycin (Pre-Docked)) 1,000 mg in 250 mls @ 166.667 mls/hr IVPB Q12H [facility]; Protocol Piperacillin Sod/Tazobactam (Sod 4.5 gm/ Dextrose) 100 mls @ 200 mls/hr IVPB Q8H-IV [facility]; Protocol Insulin Aspart (Novolog Vial Sliding Scale -) 1 vial SQ ACHS [facility]; Protocol Last Admin: 10/08/18 06:16 Dose: Not Given Mupirocin (Bactroban Ointment (For Decolonization) -) 1 applic NS BID [facility] Stop: 10/13/18 09:59 Last Admin: 10/08/18 09:23 Dose: 1 applic Ranitidine HCl (Zantac Oral Solution -) 150 mg GT BID [facility] Last Admin: 10/08/18 09:23 Dose: 150 mg PE: Gen: Chronically ill appearing man, no distress, vented HEENT: bitempororal wasting, PERRL, trach CDI PULM: coarse scattered rhonchi CV: reg unable to appreciate m/r/g ABD: PEG CDI, hypoactive BS NEURO: opens eyes to noxious stimuli, does not attend All Active Problems Chronic respiratory failure (Acute) Pneumonia (Acute) Sepsis (Acute) TBI (traumatic brain injury) (Acute) -abx as per ID, suspect central fever, will taper on cxl data -full vent support, not candidate for weaning -if remains hypotensive without clear localizing source of infection will start midodrine -glycemic control -ICU monitoring giving tenuous status -SCD 35min CCT [place] ACNP [id number]
[2018-10-08] MEDS: PIPERACILLIN/TAZOB 4.5 GM 4.5 GM in DEXTROSE 5%-WATER 100 ML IVPB SCH ×2 (10:58→17:22)
[2018-10-08] MEDS: MIDODRINE HCL 5 MG TABLET PO SCH ×2 (13:00→17:20)
--- NOTE | 2018-10-08 13:11 | PN ---
Progress Note, Physician - Current Medication List Current Medications: Active Medications Amantadine HCl (Symmetrel -) 100 mg PO BID [facility] Chlorhexidine Gluconate (Hibiclens For Decolonization -) 1 applic TP HS [facility] Finasteride (Proscar -) 5 mg NR DAILY [facility] Last Admin: 10/08/18 09:23 Dose: 5 mg Sodium Chloride (Normal Saline -) 1,000 mls @ 75 mls/hr IV ASDIR [facility] Last Admin: 10/07/18 23:27 Dose: 75 mls/hr Vancomycin HCl (Vancomycin (Pre-Docked)) 1,000 mg in 250 mls @ 166.667 mls/hr IVPB Q12H [facility]; Protocol Piperacillin Sod/Tazobactam (Sod 4.5 gm/ Dextrose) 100 mls @ 200 mls/hr IVPB Q8H-IV [facility]; Protocol Last Admin: 10/08/18 10:58 Dose: 200 mls/hr Insulin Aspart (Novolog Vial Sliding Scale -) 1 vial SQ ACHS [facility]; Protocol Last Admin: 10/08/18 11:21 Dose: Not Given Midodrine (Proamatine -) 5 mg PO TID-MID [facility] Last Admin: 10/08/18 13:00 Dose: 5 mg Mupirocin (Bactroban Ointment (For Decolonization) -) 1 applic NS BID [facility] Stop: 10/13/18 09:59 Last Admin: 10/08/18 09:23 Dose: 1 applic Ranitidine HCl (Zantac Oral Solution -) 150 mg GT BID [facility] Last Admin: 10/08/18 09:23 Dose: 150 mg - Objective Vital Signs: Vital Signs Temperature 101 F H 10/08/18 10:00 Pulse Rate 80 10/08/18 12:00 Respiratory Rate 18 10/08/18 12:00 Blood Pressure 82/61 L 10/08/18 12:00 O2 Sat by Pulse Oximetry (%) 97 10/08/18 09:00 Cardiovascular: Yes: S1, S2 Respiratory: Yes: Mechanically Ventilated Gastrointestinal: Yes: Normal Bowel Sounds, Soft Labs: CBC, BMP 10/08/18 05:10 10/08/18 05:10 INR, PTT INR 2.04 (0.83-1.09) H 10/07/18 18:03 Problem List - Problems (1) Fever Assessment/Plan: -likely central fever, -cxr infiltrates borderline low bp. -icu for monitoring -blood cultures x2 -urine culture -sputum culture -zosyn/vancomycin empirically -echo -id consult -pulm consult- Code(s): R50.9 - FEVER, UNSPECIFIED (2) Sepsis Assessment/Plan: as above Code(s): A41.9 - SEPSIS, UNSPECIFIED ORGANISM Qualifiers: Sepsis type: sepsis due to unspecified organism Qualified Code(s): A41.9 - Sepsis, unspecified organism (3) Subdural hematoma Assessment/Plan: -head CT , c spine ct -avoid nsaids, asa, heparin sc -ANDREA eval -discuss with family goals of care Code(s): S06.5X9A - TRAUM SUBDR HEM W LOC OF UNSP DURATION, INIT (4) Chronic respiratory failure Assessment/Plan: icu vent settings per pulm Code(s): J96.10 - CHRONIC RESPIRATORY FAILURE, UNSP W HYPOXIA OR HYPERCAPNIA (5) Pneumonia Assessment/Plan: abx per id Code(s): J18.9 - PNEUMONIA, UNSPECIFIED ORGANISM (6) Afib Assessment/Plan: - no ac -metoprolol for rate control - Code(s): I48.91 - UNSPECIFIED ATRIAL FIBRILLATION
[2018-10-08] MEDS: AMANTADINE HCL 100 MG TABLET PO SCH ×2 (13:46→21:29)
[2018-10-08] MEDS ORDERED: PNEUMOC 13-VAL CONJ-DIP CRM/PF 0.5 ML DISP.SYRIN IM ONE ×2 (16:30→17:30)
--- NOTE | 2018-10-08 17:12 | CON.GI ---
Consult Consult Specialty:: GI - History of Present Illness History of Present Illness: History obtained from chart as the patient is non-verbal. 77 y/o M w/ PMHx of cardiac arrest, SAH/SDH after fall on stairs, treated at [facility], s/p trach and PEG transferred to SNF on 09/29. He has had intermittent fevers both there and after transfer. per ER noted he was treated for pneumonia with rocephin in the hospital. bronchoscopy performed and ceftriaxone was given at [facility] per ER notes. Levaquin was started yesterday at [place]. He is currently full code and admitted to ICU for fever and hypotension. Transaminases and alp were noted to be elevated on admission. No blood work to compare. No diarrhea reported. 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 History of Recent Travel: No Home Medications - Allergies Allergies/Adverse Reactions: Allergies Allergy/AdvReac Type Severity Reaction Status Date / Time No Known Allergies Allergy Verified 10/07/18 17:43 - Home Medications Home Medications: Ambulatory Orders Acetaminophen [Tylenol] 650 mg GT Q8H 10/07/18 Amantadine HCl [Amantadine] 100 mg GT BID 10/07/18 Famotidine [Pepcid -] 20 mg GT BID 10/07/18 Finasteride 5 mg GT DAILY 10/07/18 Heparin - 5,000 unit SQ TID 10/07/18 levoFLOXacin 750 MG IVPB [Levaquin 750 mg Premixed Ivpb -] 750 mg IVPB DAILY Family Disease History - Family Disease History Family History: Unable to Obtain Review of Systems Unable to obtain ROS, reason: patient non-verbal Physical Exam-GI Vital Signs: Vital Signs Temperature 101 F H 10/08/18 16:00 Pulse Rate 88 10/08/18 16:00 Respiratory Rate 17 10/08/18 16:00 Blood Pressure 95/69 10/08/18 16:00 O2 Sat by Pulse Oximetry (%) 97 10/08/18 15:35 Constitutional: Yes: Calm Eyes: Yes: Other (Opens eyes to physical stimuli) Cardiovascular: Yes: Regular Rate and Rhythm Respiratory: Yes: Diminished (at bases bilaterally with poor insp effort) Gastrointestinal Inspection: Yes: Other (G-Tube in mid upper abdomen. No peripeg induration, erythema or fluctuance.). No: Distention ...Auscultate: Yes: Normoactive Bowel Sounds ...Palpate: Yes: Soft. No: Tenderness (No grimacing upon palpation. no guarding) ...Percussion: No: Tympanitic Edema: No (No LE edema) Neurological: Yes: Other (opens eyes) Labs: CBC, BMP 10/08/18 05:10 10/08/18 05:10 INR, PTT INR 2.04 (0.83-1.09) H 10/07/18 18:03 Hepatic Panel Total Bilirubin 0.8 mg/dL (0.2-1) 10/08/18 05:10 Direct Bilirubin 0.5 mg/dL (0.0-0.2) H 10/08/18 05:10 AST 282 U/L (15-37) H 10/08/18 05:10 ALT 558 U/L (13-61) H 10/08/18 05:10 Alkaline Phosphatase 192 U/L (45-117) H 10/08/18 05:10 Albumin 1.5 g/dl (3.4-5.0) L 10/08/18 05:10 Problem List - Problems (1) Abnormal liver function tests Assessment/Plan: Unclear if this is more of a chronic process spanning from recent hospitalization from [facility] and what the etiology of the elevation is specifically. Improving trend Given fevers, biliary tract needs to be evaluated. Abdominal exam is benign, however, not suggestive of a significant inflammatory process of the RUQ Abdominal US has been ordered. Depending on results, may need further imaging such as CT scan of A/P Hepatitis serologies Monitor LFTs Avoid hepatotoxic agents Abx per ID Obtain prior records from [facility] to compare blood work and review if this was worked up there as well Code(s): R94.5 - ABNORMAL RESULTS OF LIVER FUNCTION STUDIES
[2018-10-08] MEDS: VANCOMYCIN 1 GRAM (PRE-DOCKED) 1,000 MG/250 ML BAG IVPB SCH (17:21)
[2018-10-08] MEDS: CHLORHEXIDINE GLUCONATE 4% CLEANSER FOR DECOLONIZATION TP SCH (21:29)
[2018-10-09] MEDS: SODIUM CHLORIDE 1,000 ML IV SCH (00:13)
[2018-10-09] MEDS ORDERED: DEXTROSE 5%-WATER 100 ML IVPB ONE ×3 (00:25→17:01)
[2018-10-09] MEDS ORDERED: PIPERACILLIN/TAZOBACTAM 4.5 GM VIAL IVPB ONE ×3 (00:25→17:01)
[2018-10-09] MEDS: PIPERACILLIN/TAZOB 4.5 GM 4.5 GM in DEXTROSE 5%-WATER 100 ML IVPB SCH ×3 (02:00→17:06)
[2018-10-09] MEDS: VANCOMYCIN 1 GRAM (PRE-DOCKED) 1,000 MG/250 ML BAG IVPB SCH ×2 (05:36→17:03)
[2018-10-09 05:48] LABS: BASO % 0.2 % (0-2.0); EOS % 0.6 % (0-4.5); HEMATOCRIT 28.5 % (35.4-49); HEMOGLOBIN 9.4 GM/dL (11.7-16.9); LYMPH % 13.3 % (8-40); MCH 28.8 pg (25.7-33.7); MCHC 33.1 g/dl (32.0-35.9); MEAN CELL VOLUME 87.2 fl (80-96); MONO % 4.6 % (3.8-10.2); NEUT % 81.3 % (42.8-82.8); PLATELET COUNT 181 K/MM3 (134-434); RBC 3.27 M/mm3 (4.00-5.60); RDW 14.4 % (11.9-15.9); WHITE BLOOD COUNT 8.5 K/mm3 (4.0-10.0)
[2018-10-09 06:19] LABS: ALBUMIN 1.4 g/dl (3.4-5.0); BILIRUBIN,DIRECT 0.6 mg/dL (0.0-0.2); BILIRUBIN,TOTAL 1.2 mg/dL (0.2-1); BLOOD UREA NITROGEN 20.2 mg/dL (7-18); CALCIUM 7.2 mg/dL (8.5-10.1); CREATININE 0.5 mg/dL (0.55-1.3); TOT PROT 4.3 g/dl (6.4-8.2)
[2018-10-09] MEDS: INSULIN SLIDING SCALE (NOVOLOG) 1 VIAL SQ SCH ×4 (07:28→22:03)
--- NOTE | 2018-10-09 08:43 | PN.GI ---
GI Progress Note Subjective: No acute events Temps persist. 99 overnight US: not officially read.reviewing images, there appears to be a CBD and unofficially read the CBD was about 7mm - Objective Vital Signs: Vital Signs Temperature 99.1 F 10/09/18 06:00 Pulse Rate 82 10/09/18 08:23 Respiratory Rate 14 10/09/18 08:23 Blood Pressure 88/67 L 10/09/18 08:00 O2 Sat by Pulse Oximetry (%) 100 10/09/18 08:23 Constitutional: Calm Eyes: No: Sclera Icterus Cardiovascular: Yes: Regular Rate and Rhythm Respiratory: Yes: Diminished (at bases bilaterally) Gastrointestinal Inspection: No: Distention ...Auscultate: Yes: Normoactive Bowel Sounds ...Palpate: No: Tenderness (no grimacing upon palpation) ...Percussion: No: Tympanitic Edema: No (No LE edema) Neurological: Yes: Other (eyes are open) Labs: CBC, BMP 10/09/18 05:00 10/09/18 05:00 INR, PTT INR 2.04 (0.83-1.09) H 10/07/18 18:03 Laboratory Tests 10/08/18 17:46 Creatine Kinase 429 H Laboratory Tests 10/09/18 05:00 Hepatitis A Ab Total Pending Hep Bs Antigen Pending Hep Bs Antibody Pending Hep B Core Total Ab Pending Hep B Core IgM Ab Pending Hepatitis Be Antibody Pending Hepatitis Be Antigen Pending Hep C Ab Diagnostic Pending Problem List - Problems (1) Abnormal liver function tests Assessment/Plan: LFTs seem to be improving. CPK mildly elevated as well. ? component of mild rhabdo contributing Await official read of CT scan Avoid hepatotoxic agents Monitor LFTs Code(s): R94.5 - ABNORMAL RESULTS OF LIVER FUNCTION STUDIES
[2018-10-09] MEDS ORDERED: PT OWN MED DRAWER 7, Y5N ONE (09:04)
--- NOTE | 2018-10-09 09:09 | PN ---
Progress Note (short form) - Note Progress Note: unresponsive Vital Signs Period Temp Pulse Resp BP Sys/Mcguire Pulse Ox Last 24 Hr 99.1 F-101.4 F 70-88 11-22 76-100/56-73 96-100 cor-rrr lungs decreased bs at bases abd soft,nt +GT ext no edema CBC, BMP 10/09/18 05:00 10/09/18 05:00 Microbiology 10/07/18 18:03 Blood - Peripheral Venous Blood Culture - Preliminary NO GROWTH OBTAINED AFTER 24 HOURS, INCUBATION TO CONTINUE FOR 4 DAYS. 10/07/18 18:03 Blood - Peripheral Venous Blood Culture - Preliminary NO GROWTH OBTAINED AFTER 24 HOURS, INCUBATION TO CONTINUE FOR 4 DAYS. 10/08/18 10:15 Sputum - Endotrachea Suction/Ventilator Gram Stain - Final Current Medications Amantadine HCl (Symmetrel -) 100 mg PO BID [facility] Last Admin: 10/08/18 21:29 Dose: 100 mg Chlorhexidine Gluconate (Hibiclens For Decolonization -) 1 applic TP HS [facility] Last Admin: 10/08/18 21:29 Dose: 1 applic Finasteride (Proscar -) 5 mg NR DAILY [facility] Last Admin: 10/08/18 09:23 Dose: 5 mg Sodium Chloride (Normal Saline -) 1,000 mls @ 75 mls/hr IV ASDIR [facility] Last Admin: 10/09/18 00:13 Dose: Not Given Vancomycin HCl (Vancomycin (Pre-Docked)) 1,000 mg in 250 mls @ 166.667 mls/hr IVPB Q12H [facility]; Protocol Last Admin: 10/09/18 05:36 Dose: 166.667 mls/hr Piperacillin Sod/Tazobactam (Sod 4.5 gm/ Dextrose) 100 mls @ 200 mls/hr IVPB Q8H-IV [facility]; Protocol Last Admin: 10/09/18 02:00 Dose: 200 mls/hr Insulin Aspart (Novolog Vial Sliding Scale -) 1 vial SQ ACHS [facility]; Protocol Last Admin: 10/09/18 07:28 Dose: Not Given Midodrine (Proamatine -) 5 mg PO TID-MID [facility] Last Admin: 10/08/18 17:20 Dose: 5 mg Mupirocin (Bactroban Ointment (For Decolonization) -) 1 applic NS BID [facility] Stop: 10/13/18 09:59 Last Admin: 10/08/18 21:29 Dose: 1 applic Ranitidine HCl (Zantac Oral Solution -) 150 mg GT BID [facility] Last Admin: 10/08/18 21:29 Dose: 150 mg a/p FUO with TBI possible pneumonia repeat cxray continue vancomycin/zosyn f/u cultures abnl lfts- f/u sonogram, trending downwards Problem List - Problems (1) Sepsis Code(s): A41.9 - SEPSIS, UNSPECIFIED ORGANISM Qualifiers: Sepsis type: sepsis due to unspecified organism Qualified Code(s): A41.9 - Sepsis, unspecified organism (2) Pneumonia Code(s): J18.9 - PNEUMONIA, UNSPECIFIED ORGANISM (3) Chronic respiratory failure Code(s): J96.10 - CHRONIC RESPIRATORY FAILURE, UNSP W HYPOXIA OR HYPERCAPNIA (4) TBI (traumatic brain injury) Code(s): S06.9X9A - UNSP INTRACRANIAL INJURY W LOC OF UNSP DURATION, INIT
[2018-10-09] MEDS: FINASTERIDE 5 MG TABLET (FP) NR SCH (09:22)
[2018-10-09] MEDS: MIDODRINE HCL 5 MG TABLET PO SCH ×3 (09:22→17:03)
[2018-10-09] MEDS: RANITIDINE HCL 150 MG/10 ML UNIT-DOSE GT SCH ×2 (09:22→21:55)
[2018-10-09] MEDS: MUPIROCIN 2% TOPICAL OINTMENT FOR DECOLONIZATION NS SCH ×2 (09:23→21:56)
[2018-10-09] MEDS: AMANTADINE HCL 100 MG TABLET PO SCH ×2 (09:23→21:55)
--- NOTE | 2018-10-09 09:33 | PN ---
Progress Note, Physician - Current Medication List Current Medications: Active Medications Amantadine HCl (Symmetrel -) 100 mg PO BID [facility] Last Admin: 10/09/18 09:23 Dose: 100 mg Chlorhexidine Gluconate (Hibiclens For Decolonization -) 1 applic TP HS [facility] Last Admin: 10/08/18 21:29 Dose: 1 applic Finasteride (Proscar -) 5 mg NR DAILY [facility] Last Admin: 10/09/18 09:22 Dose: 5 mg Sodium Chloride (Normal Saline -) 1,000 mls @ 75 mls/hr IV ASDIR [facility] Last Admin: 10/09/18 00:13 Dose: Not Given Vancomycin HCl (Vancomycin (Pre-Docked)) 1,000 mg in 250 mls @ 166.667 mls/hr IVPB Q12H [facility]; Protocol Last Admin: 10/09/18 05:36 Dose: 166.667 mls/hr Piperacillin Sod/Tazobactam (Sod 4.5 gm/ Dextrose) 100 mls @ 200 mls/hr IVPB Q8H-IV [facility]; Protocol Last Admin: 10/09/18 09:22 Dose: 200 mls/hr Insulin Aspart (Novolog Vial Sliding Scale -) 1 vial SQ ACHS [facility]; Protocol Last Admin: 10/09/18 07:28 Dose: Not Given Midodrine (Proamatine -) 5 mg PO TID-MID [facility] Last Admin: 10/09/18 09:22 Dose: 5 mg Mupirocin (Bactroban Ointment (For Decolonization) -) 1 applic NS BID [facility] Stop: 10/13/18 09:59 Last Admin: 10/09/18 09:23 Dose: 1 applic Ranitidine HCl (Zantac Oral Solution -) 150 mg GT BID [facility] Last Admin: 10/09/18 09:22 Dose: 150 mg - Objective Vital Signs: Vital Signs Temperature 99.1 F 10/09/18 06:00 Pulse Rate 82 10/09/18 08:23 Respiratory Rate 14 10/09/18 08:23 Blood Pressure 88/67 L 10/09/18 08:00 O2 Sat by Pulse Oximetry (%) 100 10/09/18 08:23 Cardiovascular: Yes: S1, S2 Respiratory: Yes: Mechanically Ventilated Gastrointestinal: Yes: Normal Bowel Sounds, Soft Labs: CBC, BMP 10/09/18 05:00 10/09/18 05:00 INR, PTT INR 2.04 (0.83-1.09) H 10/07/18 18:03 Problem List - Problems (1) Fever Assessment/Plan: -likely central fever, -cxr infiltrates borderline low bp. -icu for monitoring -blood cultures x2 -urine culture -sputum culture -zosyn/vancomycin empirically -echo -id consult -pulm consult- Code(s): R50.9 - FEVER, UNSPECIFIED (2) Sepsis Assessment/Plan: as above Code(s): A41.9 - SEPSIS, UNSPECIFIED ORGANISM Qualifiers: Sepsis type: sepsis due to unspecified organism Qualified Code(s): A41.9 - Sepsis, unspecified organism (3) Subdural hematoma Assessment/Plan: -head CT , c spine ct -avoid nsaids, asa, heparin sc -ANDREA eval -discuss with family goals of care Code(s): S06.5X9A - TRAUM SUBDR HEM W LOC OF UNSP DURATION, INIT (4) Chronic respiratory failure Assessment/Plan: icu vent settings per pulm Code(s): J96.10 - CHRONIC RESPIRATORY FAILURE, UNSP W HYPOXIA OR HYPERCAPNIA (5) Pneumonia Assessment/Plan: abx per id Code(s): J18.9 - PNEUMONIA, UNSPECIFIED ORGANISM (6) Afib Assessment/Plan: - no ac -metoprolol for rate control - Code(s): I48.91 - UNSPECIFIED ATRIAL FIBRILLATION
--- NOTE | 2018-10-09 11:23 | PN ---
Progress Note (short form) - Note Progress Note: PULM/CCM Pt seen and examined in ICU 24HR; -labs improved -hemodynamics stable Vital Signs Temp 99.1 F 10/09/18 06:00 Pulse 82 10/09/18 08:23 Resp 12 10/09/18 11:12 BP 88/67 L 10/09/18 08:00 Pulse Ox 100 10/09/18 08:23 Intake & Output 10/08/18 10/08/18 10/09/18 11:59 23:59 11:59 Intake Total 900 150 950 Output Total 900 700 700 Balance 0 -550 250 Weight 73.085 kg 73.085 kg Intake: IV 600 600 Normal Saline - 1,000 ml 600 600 @ 75 mls/hr IV ASDIR [facility] Rx#:[id number] IVPB 300 100 350 Tube Irrigant 50 Output: Urine 900 700 700 Hinkle 900 700 700 Other: Voiding Method Indwelling Catheter Indwelling Catheter Bowel Movement No No Height 5 ft 8 in Body Mass Index (BMI) 24.5 Weight Measurement Method [facility] in [facility] Built in [facility] CBC, BMP 10/09/18 05:00 10/09/18 05:00 Active Medications Amantadine HCl (Symmetrel -) 100 mg PO BID [facility] Last Admin: 10/09/18 09:23 Dose: 100 mg Chlorhexidine Gluconate (Hibiclens For Decolonization -) 1 applic TP HS [facility] Last Admin: 10/08/18 21:29 Dose: 1 applic Finasteride (Proscar -) 5 mg NR DAILY [facility] Last Admin: 10/09/18 09:22 Dose: 5 mg Sodium Chloride (Normal Saline -) 1,000 mls @ 75 mls/hr IV ASDIR [facility] Last Admin: 10/09/18 00:13 Dose: Not Given Vancomycin HCl (Vancomycin (Pre-Docked)) 1,000 mg in 250 mls @ 166.667 mls/hr IVPB Q12H [facility]; Protocol Last Admin: 10/09/18 05:36 Dose: 166.667 mls/hr Piperacillin Sod/Tazobactam (Sod 4.5 gm/ Dextrose) 100 mls @ 200 mls/hr IVPB Q8H-IV [facility]; Protocol Last Admin: 10/09/18 09:22 Dose: 200 mls/hr Insulin Aspart (Novolog Vial Sliding Scale -) 1 vial SQ ACHS [facility]; Protocol Last Admin: 10/09/18 07:28 Dose: Not Given Midodrine (Proamatine -) 5 mg PO TID-MID [facility] Last Admin: 10/09/18 09:22 Dose: 5 mg Mupirocin (Bactroban Ointment (For Decolonization) -) 1 applic NS BID [facility] Stop: 10/13/18 09:59 Last Admin: 10/09/18 09:23 Dose: 1 applic Ranitidine HCl (Zantac Oral Solution -) 150 mg GT BID [facility] Last Admin: 10/09/18 09:22 Dose: 150 mg PE: Gen: Chronically ill appearing man, no distress, vented HEENT: bitempororal wasting, PERRL, trach CDI PULM: coarse scattered rhonchi CV: reg unable to appreciate m/r/g ABD: PEG CDI, hypoactive BS NEURO: opens eyes to noxious stimuli, does not attend All Active Problems Chronic respiratory failure (Acute) Pneumonia (Acute) Sepsis (Acute) TBI (traumatic brain injury) (Acute) -abx as per ID, suspect central fever, will taper on cxl data -full vent support, not candidate for weaning -cont midodrine -glycemic control -ICU monitoring giving tenuous status -SCD -OK for TELE/vent bed -consider palcare consult 35min CCT Stella ROCHAP [id number]
[2018-10-09] MEDS: CHLORHEXIDINE GLUCONATE 4% CLEANSER FOR DECOLONIZATION TP SCH (21:55)
[2018-10-10] MEDS: SODIUM CHLORIDE 1,000 ML IV SCH (00:23)
--- NOTE | 2018-10-10 00:32 | EKG ---
Test Reason : Blood Pressure : / mmHG Vent. Rate : 080 BPM Atrial Rate : 170 BPM P-R Int : 000 ms QRS Dur : 080 ms QT Int : 366 ms P-R-T Axes : 000 012 004 degrees QTc Int : 422 ms Suspect unspecified pacemaker failure ATRIAL FIBRILLATION LOW VOLTAGE QRS T WAVE ABNORMALITY, CONSIDER ANTERIOR ISCHEMIA ABNORMAL ECG NO PREVIOUS ECGS AVAILABLE Confirmed by MD Caleb, Barrera ([id number]) on 10/10/2018 12:32:11 AM Referred By: Confirmed By:Barrera Elils MD
[2018-10-10] MEDS ORDERED: PIPERACILLIN/TAZOBACTAM 4.5 GM VIAL IVPB ONE ×3 (01:05→18:24)
[2018-10-10] MEDS ORDERED: DEXTROSE 5%-WATER 100 ML IVPB ONE ×3 (01:06→18:24)
[2018-10-10] MEDS: PIPERACILLIN/TAZOB 4.5 GM 4.5 GM in DEXTROSE 5%-WATER 100 ML IVPB SCH ×3 (01:53→18:28)
[2018-10-10] MEDS: VANCOMYCIN 1 GRAM (PRE-DOCKED) 1,000 MG/250 ML BAG IVPB SCH ×2 (06:38→19:00)
[2018-10-10 06:39] LABS: ALBUMIN 1.3 g/dl (3.4-5.0); BILIRUBIN,DIRECT 0.6 mg/dL (0.0-0.2); BILIRUBIN,TOTAL 0.8 mg/dL (0.2-1)
[2018-10-10] MEDS: INSULIN SLIDING SCALE (NOVOLOG) 1 VIAL SQ SCH ×4 (07:09→22:21)
--- NOTE | 2018-10-10 08:17 | PN ---
Progress Note, Physician Chief Complaint: AWAKE, CHART REVIEWED EVENTS REVIEWED NO NEW ALARMS OVERNIGHT - Current Medication List Current Medications: Active Medications Amantadine HCl (Symmetrel -) 100 mg PO BID [facility] Last Admin: 10/09/18 21:55 Dose: 100 mg Chlorhexidine Gluconate (Hibiclens For Decolonization -) 1 applic TP HS [facility] Last Admin: 10/09/18 21:55 Dose: 1 applic Finasteride (Proscar -) 5 mg NR DAILY [facility] Last Admin: 10/09/18 09:22 Dose: 5 mg Sodium Chloride (Normal Saline -) 1,000 mls @ 75 mls/hr IV ASDIR [facility] Last Admin: 10/10/18 00:23 Dose: 75 mls/hr Vancomycin HCl (Vancomycin (Pre-Docked)) 1,000 mg in 250 mls @ 166.667 mls/hr IVPB Q12H [facility]; Protocol Last Admin: 10/10/18 06:38 Dose: 166.667 mls/hr Piperacillin Sod/Tazobactam (Sod 4.5 gm/ Dextrose) 100 mls @ 200 mls/hr IVPB Q8H-IV [facility]; Protocol Last Admin: 10/10/18 01:53 Dose: 200 mls/hr Insulin Aspart (Novolog Vial Sliding Scale -) 1 vial SQ ACHS [facility]; Protocol Last Admin: 10/10/18 07:09 Dose: Not Given Midodrine (Proamatine -) 5 mg PO TID-MID [facility] Last Admin: 10/09/18 17:03 Dose: 5 mg Mupirocin (Bactroban Ointment (For Decolonization) -) 1 applic NS BID [facility] Stop: 10/13/18 09:59 Last Admin: 10/09/18 21:56 Dose: 1 applic Ranitidine HCl (Zantac Oral Solution -) 150 mg GT BID [facility] Last Admin: 10/09/18 21:55 Dose: 150 mg - Objective Vital Signs: Vital Signs Temperature 99.3 F 10/10/18 07:00 Pulse Rate 79 10/10/18 08:14 Respiratory Rate 13 10/10/18 08:14 Blood Pressure 86/60 L 10/10/18 07:00 O2 Sat by Pulse Oximetry (%) 100 10/10/18 08:14 Constitutional: Yes: Mild Distress Eyes: Yes: WNL HENT: Yes: Other Cardiovascular: Yes: Regular Rate and Rhythm Respiratory: Yes: Diminished Gastrointestinal: Yes: Soft Musculoskeletal: Yes: Muscle Weakness Edema: No Integumentary: Yes: Rash Wound/Incision: Yes: Dressing Dry and Intact Neurological: Yes: Aphasia, Pre-Existing Deficit, Weakness ...Motor Strength: LLE, RLE Psychiatric: Yes: Other Labs: CBC, BMP 10/09/18 05:00 10/09/18 05:00 INR, PTT INR 2.04 (0.83-1.09) H 10/07/18 18:03 Problem List - Problems (1) Abnormal liver function tests Code(s): R94.5 - ABNORMAL RESULTS OF LIVER FUNCTION STUDIES (2) Afib Code(s): I48.91 - UNSPECIFIED ATRIAL FIBRILLATION (3) Chronic respiratory failure Code(s): J96.10 - CHRONIC RESPIRATORY FAILURE, UNSP W HYPOXIA OR HYPERCAPNIA (4) Fever Code(s): R50.9 - FEVER, UNSPECIFIED (5) Pneumonia Code(s): J18.9 - PNEUMONIA, UNSPECIFIED ORGANISM (6) Sepsis Code(s): A41.9 - SEPSIS, UNSPECIFIED ORGANISM Qualifiers: Sepsis type: sepsis due to unspecified organism Qualified Code(s): A41.9 - Sepsis, unspecified organism Assessment/Plan IV ABX REVIEWED CT CHEST PENDING RESULTS ID F/U AND FEVER/SEPSIS WORKUP IN PROGRESS ADVANCED DIRECTIVES NEEDED AND PALLIAITVE CARE CONSULT
--- NOTE | 2018-10-10 09:24 | PN ---
Progress Note (short form) - Note Progress Note: unresponsive trach to vent fevers improved Vital Signs Period Temp Pulse Resp BP Sys/Mcguire Pulse Ox Last 24 Hr 99.1 F-99.9 F 70-80 11-22 83-110/60-85 100-100 cor-rrr lungs decreased bs at bases abd soft,nt +GT ext trace edema chest ct bilateral effusions, probable bilateral lower lobe infiltrates multiple rib fracture, sternal fracture CBC, BMP 10/09/18 05:00 10/09/18 05:00 Microbiology 10/07/18 18:03 Blood - Peripheral Venous Blood Culture - Preliminary NO GROWTH OBTAINED AFTER 48 HOURS, INCUBATION TO CONTINUE FOR 3 DAYS. 10/07/18 18:03 Blood - Peripheral Venous Blood Culture - Preliminary NO GROWTH OBTAINED AFTER 48 HOURS, INCUBATION TO CONTINUE FOR 3 DAYS. 10/08/18 10:15 Sputum - Endotrachea Suction/Ventilator Gram Stain - Final 10/08/18 10:15 Sputum - Endotrachea Suction/Ventilator Sputum Culture - Preliminary Non Lactose Fermenting Gnb 10/07/18 18:03 Urine - Urine Hinkle Urine Culture - Final Yeast Like Organism lfts trending down vanco trough 12.5 Active Medications Amantadine HCl (Symmetrel -) 100 mg PO BID [facility] Last Admin: 10/09/18 21:55 Dose: 100 mg Chlorhexidine Gluconate (Hibiclens For Decolonization -) 1 applic TP HS [facility] Last Admin: 10/09/18 21:55 Dose: 1 applic Finasteride (Proscar -) 5 mg NR DAILY [facility] Last Admin: 10/09/18 09:22 Dose: 5 mg Sodium Chloride (Normal Saline -) 1,000 mls @ 75 mls/hr IV ASDIR [facility] Last Admin: 10/10/18 00:23 Dose: 75 mls/hr Vancomycin HCl (Vancomycin (Pre-Docked)) 1,000 mg in 250 mls @ 166.667 mls/hr IVPB Q12H [facility]; Protocol Last Admin: 10/10/18 06:38 Dose: 166.667 mls/hr Piperacillin Sod/Tazobactam (Sod 4.5 gm/ Dextrose) 100 mls @ 200 mls/hr IVPB Q8H-IV [facility]; Protocol Last Admin: 10/10/18 01:53 Dose: 200 mls/hr Insulin Aspart (Novolog Vial Sliding Scale -) 1 vial SQ ACHS [facility]; Protocol Last Admin: 10/10/18 07:09 Dose: Not Given Midodrine (Proamatine -) 5 mg PO TID-MID [facility] Last Admin: 10/09/18 17:03 Dose: 5 mg Mupirocin (Bactroban Ointment (For Decolonization) -) 1 applic NS BID [facility] Stop: 10/13/18 09:59 Last Admin: 10/09/18 21:56 Dose: 1 applic Ranitidine HCl (Zantac Oral Solution -) 150 mg GT BID [facility] Last Admin: 10/09/18 21:55 Dose: 150 mg a/p FUO with TBI-improved probable pneumonia continue vancomycin/zosyn f/u cultures abnl lfts- f/u sonogram, trending downwards Problem List - Problems (1) Sepsis Code(s): A41.9 - SEPSIS, UNSPECIFIED ORGANISM Qualifiers: Sepsis type: sepsis due to unspecified organism Qualified Code(s): A41.9 - Sepsis, unspecified organism (2) Pneumonia Code(s): J18.9 - PNEUMONIA, UNSPECIFIED ORGANISM (3) Chronic respiratory failure Code(s): J96.10 - CHRONIC RESPIRATORY FAILURE, UNSP W HYPOXIA OR HYPERCAPNIA (4) TBI (traumatic brain injury) Code(s): S06.9X9A - UNSP INTRACRANIAL INJURY W LOC OF UNSP DURATION, INIT
[2018-10-10] MEDS ORDERED: PT OWN MED DRAWER 7, Y5N ONE (09:59)
[2018-10-10] MEDS: AMANTADINE HCL 100 MG TABLET PO SCH ×2 (10:36→22:20)
[2018-10-10] MEDS: FINASTERIDE 5 MG TABLET (FP) NR SCH (10:36)
[2018-10-10] MEDS: MIDODRINE HCL 5 MG TABLET PO SCH ×3 (10:36→18:29)
[2018-10-10] MEDS: RANITIDINE HCL 150 MG/10 ML UNIT-DOSE GT SCH ×2 (10:36→22:20)
[2018-10-10] MEDS: MUPIROCIN 2% TOPICAL OINTMENT FOR DECOLONIZATION NS SCH ×2 (10:37→22:21)
--- NOTE | 2018-10-10 11:46 | PN ---
Progress Note (short form) - Note Progress Note: GI follow up Patient seen and examined Labs reviewed Vital Signs Temp 99.3 F 10/10/18 07:00 Pulse 79 10/10/18 08:14 Resp 18 10/10/18 11:19 BP 86/60 L 10/10/18 07:00 Pulse Ox 100 10/10/18 08:14 NAD Abd soft NT, PEG c/d/i CBC, BMP 10/09/18 05:00 10/09/18 05:00 Hepatic Panel Total Bilirubin 0.8 mg/dL (0.2-1) 10/10/18 05:33 Direct Bilirubin 0.6 mg/dL (0.0-0.2) H 10/10/18 05:33 AST 90 U/L (15-37) H 10/10/18 05:33 ALT 263 U/L (13-61) H 10/10/18 05:33 Alkaline Phosphatase 165 U/L (45-117) H 10/10/18 05:33 Albumin 1.3 g/dl (3.4-5.0) L 10/10/18 05:33 US read with CBD 7mm, sludge vs GB polyp Suspect abnormal LFTs are chronic or acute on chronic, and ? cholestasis of sepsis vs congestive hepatopathy Would obtain prior records of LFTs Trend LFTs daily
--- NOTE | 2018-10-10 14:39 | PN ---
Teaching Attending Note Name of Resident: Kayec Soto ATTENDING PHYSICIAN STATEMENT I saw and evaluated the patient. I reviewed the resident's note and discussed the case with the resident. I agree with the resident's findings and plan as documented. SUBJECTIVE: Patient seen and examined in the ICU. Eyes are open. Poorly responsive. AC Mode of vent. Hemodynamics are marginal. Intake & Output 10/07/18 10/08/18 10/09/18 10/10/18 23:59 23:59 23:59 23:59 Intake Total 1050 2550 775 Output Total 200 1600 1550 700 Balance -200 -550 1000 75 Weight 161 lb 161 lb 2 oz 161 lb 174 lb 4.8 oz Last Vital Signs Temp Pulse Resp BP Pulse Ox 99 F 73 14 98/62 100 10/10/18 11:00 10/10/18 11:00 10/10/18 14:00 10/10/18 11:00 10/10/18 08:14 Active Medications Amantadine HCl (Symmetrel -) 100 mg PO BID [facility] Last Admin: 10/10/18 10:36 Dose: 100 mg Chlorhexidine Gluconate (Hibiclens For Decolonization -) 1 applic TP HS [facility] Last Admin: 10/09/18 21:55 Dose: 1 applic Finasteride (Proscar -) 5 mg NR DAILY [facility] Last Admin: 10/10/18 10:36 Dose: 5 mg Sodium Chloride (Normal Saline -) 1,000 mls @ 75 mls/hr IV [facility] Last Admin: 10/10/18 00:23 Dose: 75 mls/hr Vancomycin HCl (Vancomycin (Pre-Docked)) 1,000 mg in 250 mls @ 166.667 mls/hr IVPB Q12H [facility]; Protocol Last Admin: 10/10/18 06:38 Dose: 166.667 mls/hr Piperacillin Sod/Tazobactam (Sod 4.5 gm/ Dextrose) 100 mls @ 200 mls/hr IVPB Q8H-IV [facility]; Protocol Last Admin: 10/10/18 10:35 Dose: 200 mls/hr Insulin Aspart (Novolog Vial Sliding Scale -) 1 vial SQ ACHS [facility]; Protocol Last Admin: 10/10/18 07:09 Dose: Not Given Midodrine (Proamatine -) 5 mg PO TID-MID [facility] Last Admin: 10/10/18 10:36 Dose: 5 mg Mupirocin (Bactroban Ointment (For Decolonization) -) 1 applic NS BID [facility] Stop: 10/13/18 09:59 Last Admin: 10/10/18 10:37 Dose: 1 applic Ranitidine HCl (Zantac Oral Solution -) 150 mg GT BID [facility] Last Admin: 10/10/18 10:36 Dose: 150 mg PE: Gen: Chronically ill appearing man, no distress, vented HEENT: bitempororal wasting, PERRL, trach CDI PULM: coarse scattered rhonchi CV: reg unable to appreciate m/r/g ABD: PEG CDI, hypoactive BS NEURO: opens eyes to noxious stimuli Laboratory Results - last 24 hr 10/09/18 10/09/18 10/09/18 05:00 16:40 21:59 POC Glucometer 107 100 Total Bilirubin Direct Bilirubin AST ALT Alkaline Phosphatase Total Protein Albumin Vancomycin Pre-Dose Hep C Ab Diagnostic <0.1 10/10/18 10/10/18 10/10/18 05:20 05:33 07:00 POC Glucometer 98 Total Bilirubin 0.8 Direct Bilirubin 0.6 H AST 90 H ALT 263 H Alkaline Phosphatase 165 H Total Protein 4.0 L Albumin 1.3 L Vancomycin Pre-Dose 12.5 L Hep C Ab Diagnostic 10/10/18 12:50 POC Glucometer 102 Total Bilirubin Direct Bilirubin AST ALT Alkaline Phosphatase Total Protein Albumin Vancomycin Pre-Dose Hep C Ab Diagnostic Laboratory Results - last 24 hr 10/09/18 10/09/18 10/09/18 05:00 16:40 21:59 POC Glucometer 107 100 Total Bilirubin Direct Bilirubin AST ALT Alkaline Phosphatase Total Protein Albumin Vancomycin Pre-Dose Hep C Ab Diagnostic <0.1 10/10/18 10/10/18 10/10/18 05:20 05:33 07:00 POC Glucometer 98 Total Bilirubin 0.8 Direct Bilirubin 0.6 H AST 90 H ALT 263 H Alkaline Phosphatase 165 H Total Protein 4.0 L Albumin 1.3 L Vancomycin Pre-Dose 12.5 L Hep C Ab Diagnostic 10/10/18 12:50 POC Glucometer 102 Total Bilirubin Direct Bilirubin AST ALT Alkaline Phosphatase Total Protein Albumin Vancomycin Pre-Dose Hep C Ab Diagnostic Problem List - Problems (1) Sepsis Code(s): A41.9 - SEPSIS, UNSPECIFIED ORGANISM Qualifiers: Sepsis type: sepsis due to unspecified organism Qualified Code(s): A41.9 - Sepsis, unspecified organism (2) Pneumonia Code(s): J18.9 - PNEUMONIA, UNSPECIFIED ORGANISM (3) Chronic respiratory failure Code(s): J96.10 - CHRONIC RESPIRATORY FAILURE, UNSP W HYPOXIA OR HYPERCAPNIA (4) TBI (traumatic brain injury) Code(s): S06.9X9A - UNSP INTRACRANIAL INJURY W LOC OF UNSP DURATION, INIT Chronic respiratory failure R/O Pneumonia Sepsis TBI (traumatic brain injury) ABX coverage IVF Pressors for MAP < 65 AC Mode of vent Glycemic control VTE prophylaxis ICU monitoring for tenuous status Dr Jones Critical care time spent in reviewing chart, evaluating patient and formulating plan - 36 minutes.
--- NOTE | 2018-10-10 15:39 | ECHO ---
Name: ANA ADORNO Exam:Adult Echocardiogram Study Date: 10/10/2018 09:43 AM Age: 77 yrs Reason For Study: EVALUATE LVEF MMode/2D Measurements & Calculations IVSd: 1.0 cm Ao root diam: 3.7 cm LVIDd: 5.2 cm LA dimension: 3.7 cm LVIDs: 3.8 cm LVPWd: 0.89 cm EDV(Teich): 129.5 ml LVOT diam: 2.3 cm ESV(Teich): 60.2 ml Doppler Measurements & Calculations MV E max freddy: 74.0 cm/sec Ao V2 max: 131.0 cm/sec MV A max freddy: 21.7 cm/sec Ao max P.9 mmHg MV E/A: 3.4 Ao V2 mean: 77.5 cm/sec MV dec time: 0.30 sec Ao mean P.0 mmHg Ao V2 VTI: 17.5 cm TOSIN(I,D): 2.4 cm2 AI P1/2t: 873.5 msec TOSIN(V,D): 2.0 cm2 AI max freddy: 433.5 cm/sec LV V1 max P.6 mmHg AI max P.4 mmHg LV V1 mean P.77 mmHg AI dec slope: 145.4 cm/sec2 LV V1 max: 63.8 cm/sec LV V1 mean: 39.4 cm/sec LV V1 VTI: 10.3 cm MR max freddy: 325.8 cm/sec SV(LVOT): 42.2 ml MR max P.5 mmHg TR max freddy: 253.3 cm/sec Med Peak E' Freddy: 11.6 cm/sec TR max P.8 mmHg Med E/e': 6.4 Lat Peak E' Rfeddy: 9.3 cm/sec Lat E/e': 7.9 Procedure A complete two-dimensional transthoracic echocardiogram was performed (2D, M-mode, Doppler and color flow Doppler). Left Ventricle The left ventricle is normal in size. Left ventricular systolic function is normal. Ejection Fraction = 55- 60%. No regional wall motion abnormalities noted. Right Ventricle The right ventricle is normal size. The right ventricular systolic function is normal. RV systolic TD I is 16 cm/s. Atria The left atrial size is normal. The right atrium is moderately dilated. Mitral Valve The mitral valve is normal in structure and function. There is mild mitral regurgitation. Tricuspid Valve The tricuspid valve is normal in structure and function. There is moderate to severe tricuspid regurg itation. Pulmonary artery systolic pressure is at least 38 mmHg if RA pressure is assumed 8 mmHg. Aortic Valve The aortic valve is normal in structure and function. Moderate aortic regurgitation. Pulmonic Valve The pulmonic valve is not well visualized. Great Vessels The aortic root is normal size. Pericardium/Pleura There is no pericardial effusion. There is a pleural effusion present. Interpretation Summary The left ventricle is normal in size. Left ventricular systolic function is normal. No regional wall motion abnormalities noted. Ejection Fraction = 55-60%. The right ventricular systolic function is normal. The right atrium is moderately dilated. There is mild mitral regurgitation. There is moderate to severe tricuspid regurgitation. Pulmonary artery systolic pressure is at least 38 mmHg if RA pressure is assumed 8 mmHg Moderate aortic regurgitation. There is no pericardial effusion. There is a pleural effusion present. Previous study is not available for comparison Stanley Whitley MD 10/10/2018 03:38 PM
[2018-10-10 17:09] LABS: HEP A AB, IGM Negative (Negative); HEP B CORE AB, TOT Negative (Negative)
--- NOTE | 2018-10-10 17:58 | PN ---
Physical Exam: SUBJECTIVE: Patient seen and examined by me on 10/10/2018. Patient history gathered from chart review and patient's son as patient is currently non- verbal. Patient has a history of Parkinson's disease and was most recently hospitalized at [facility] s/p fall which resulted in a TBI, subarachnoid hemorrhage, subdural hematoma, cardiac arrest, and C4 spinous fracture. Currently being worked up for recurrent fevers. Met with patient's son today to set up a family meeting on 10/12/2018 to discuss goals of care. . OBJECTIVE: Vital Signs Period Temp Pulse Resp BP Sys/Mcguire Pulse Ox Last 24 Hr 99 F-99.3 F 70-84 11-19 83-110/60-85 100-100 GENERAL: The patient is awake but non-verbal and there is no meaningful communication. HEAD: No signs of trauma. EYES: Asymmetric pupils L larger than R, L pupil unresponsive to light, unable to assess EOM as patient is unable to follow commands, however he does spontaneously move eyes in all directions. ENT: moist mucous membranes. NECK: Tracheostomy tube in place, no drainage noted. Central venous catheter in place. LUNGS: Breath sounds equal, patient on ventilator HEART: Regular rate and rhythm, S1, S2 without murmur, rub or gallop. ABDOMEN: Soft, nontender, nondistended EXTREMITIES: warm, well-perfused, no edema. NEUROLOGICAL: Patient not able to follow commands, moves eyes spontaneously. Blinks to threat on R but not L. PSYCH: unable to assess SKIN: Warm, dry, injury at right buttock/ sacrum not examined Laboratory Results - last 24 hr 10/09/18 10/09/18 10/10/18 05:00 21:59 05:20 POC Glucometer 100 Total Bilirubin Direct Bilirubin AST ALT Alkaline Phosphatase Total Protein Albumin Vancomycin Pre-Dose 12.5 L Hep A IgM Ab Confirm Negative Hepatitis A Ab Total Negative Hep Bs Antigen Negative Hep B Core Total Ab Negative Hep B Core IgM Ab Negative Hepatitis Be Antibody Negative Hepatitis Be Antigen Negative Hep C Ab Diagnostic <0.1 10/10/18 10/10/18 10/10/18 05:33 07:00 12:50 POC Glucometer 98 102 Total Bilirubin 0.8 Direct Bilirubin 0.6 H AST 90 H ALT 263 H Alkaline Phosphatase 165 H Total Protein 4.0 L Albumin 1.3 L Vancomycin Pre-Dose Hep A IgM Ab Confirm Hepatitis A Ab Total Hep Bs Antigen Hep B Core Total Ab Hep B Core IgM Ab Hepatitis Be Antibody Hepatitis Be Antigen Hep C Ab Diagnostic Active Medications Generic Name Dose Route Start Last Admin Trade Name Radha PRN Reason Stop Dose Admin Amantadine HCl 100 mg 10/08/18 10:00 10/10/18 10:36 Symmetrel - PO 100 mg BID [facility] Administration Chlorhexidine Gluconate 1 applic 10/08/18 22:00 10/09/18 21:55 Hibiclens For Decolonization - TP 1 applic HS LUTHER Administration Finasteride 5 mg 10/08/18 10:00 10/10/18 10:36 Proscar - NR 5 mg DAILY [facility] Administration Sodium Chloride 1,000 mls @ 75 mls/hr 10/07/18 23:00 10/10/18 00:23 Normal Saline - IV 75 mls/hr ASDIR L[facility] Administration Vancomycin HCl 1,000 mg in 250 mls @ 166.667 mls/hr 10/08/18 18:00 10/10/18 06:38 Vancomycin (Pre-Docked) IVPB 166.667 mls/hr Q12H [facility] Administration Protocol Piperacillin Sod/Tazobactam 100 mls @ 200 mls/hr 10/08/18 10:00 10/10/18 10: 35 Sod 4.5 gm/ Dextrose IVPB 200 mls/hr Q8H-IV L[facility]HER Administration Protocol Insulin Aspart 1 vial 10/08/18 07:00 10/10/18 17:31 Novolog Vial Sliding Scale - SQ Not Given ACHS L[facility]HER Protocol Midodrine 5 mg 10/08/18 14:00 10/10/18 15:00 Proamatine - PO 5 mg TID-MID L[facility]HER Administration Mupirocin 1 applic 10/08/18 10:00 10/10/18 10:37 Bactroban Ointment (For Decolonization) - NS 10/13/18 09:59 1 applic BID LUTHER Administration Ranitidine HCl 150 mg 10/08/18 10:00 10/10/18 10:36 Zantac Oral Solution - GT 150 mg BID LUTHER Administration ASSESSMENT/PLAN: Mr. Lovelace is a 77 y/o man with a complicated medical history admitted to the ICU for workup of recurrent fevers in the setting of recent TBI and cardiac arrest. The patient is currently unable to actively participate in his physical exam and cannot communicate verbally. ID Fevers potentially central in origin given patient's history of traumatic brain injury, and subarachnoid hemorrhage. Fevers may be septic in origin, however a source is yet to be identified. - f/u blood and urine cultures - continue vancomycin, Zosyn - continue maintenance fluids at 75mL/ hour - appreciate ID reccs Pulmonary - Acute on chronic hypoxic respiratory failure - Patient is s/p tracheostomy - Chest CT reveals bilateral loculated pleural effusions, consider draining if accessible fluid pocket can be visualized with ultrasound - Maintain oxygen saturation greater than 90% Neuro - S/p TBI and subarrachnoid hemorrhage after recent fall. Patient was diagnosed with Parkinson's disease 2 years ago (according to son) - continue amantadine 100mg PO BID - aspiration precautions Cardiovascular - History of cardiac arrest 2 weeks ago at [facility], Afib -Will hold off on anticoagulation given recent brain bleed -Cardiac monitoring Gastrointestinal - Transaminitis: AST 393 ALT 638 Alkaline phostphatase 231, total bilirubin 0.6 - Waiting to obtain prior labs from [facility]- son gave consent for transfer of medical record on 10/10/18 - PEG tube site clean, dry. FEN -IV normal saline - Replete electrolytes as necessary -NPO Prophylaxis -SCDs Disposition: Goals of care meeting scheduled with family for 1pm 10/12/18 Visit type - Emergency Visit Emergency Visit: No - New Patient This patient is new to me today: Yes Date on this admission: 10/11/18 - Critical Care Critical Care patient: Yes Total Critical Care Time (in minutes): 36 Critical Care Statement: The care of this patient involved high complexity decision making to prevent further life threatening deterioration of the patient 's condition and/or to evaluate & treat vital organ system(s) failure or risk of failure.
[2018-10-10] MEDS: CHLORHEXIDINE GLUCONATE 4% CLEANSER FOR DECOLONIZATION TP SCH (22:21)
[2018-10-11] MEDS ORDERED: PIPERACILLIN/TAZOBACTAM 4.5 GM VIAL IVPB ONE ×3 (01:12→18:02)
[2018-10-11] MEDS ORDERED: DEXTROSE 5%-WATER 100 ML IVPB ONE ×3 (01:13→18:02)
[2018-10-11] MEDS: SODIUM CHLORIDE 1,000 ML IV SCH (02:45)
[2018-10-11] MEDS: PIPERACILLIN/TAZOB 4.5 GM 4.5 GM in DEXTROSE 5%-WATER 100 ML IVPB SCH ×3 (02:46→18:00)
[2018-10-11] MEDS: VANCOMYCIN 1 GRAM (PRE-DOCKED) 1,000 MG/250 ML BAG IVPB SCH ×2 (05:15→18:46)
[2018-10-11 06:16] LABS: HEMATOCRIT 27.3 % (35.4-49); MCH 28.7 pg (25.7-33.7); MCHC 32.9 g/dl (32.0-35.9); MEAN CELL VOLUME 87.2 fl (80-96); PLATELET COUNT 212 K/MM3 (134-434); RBC 3.13 M/mm3 (4.00-5.60); RDW 14.6 % (11.9-15.9); WHITE BLOOD COUNT 6.4 K/mm3 (4.0-10.0)
[2018-10-11] MEDS: INSULIN SLIDING SCALE (NOVOLOG) 1 VIAL SQ SCH ×4 (06:41→21:37)
--- NOTE | 2018-10-11 07:00 | PN ---
Progress Note, Physician Chief Complaint: FEVERS DOCUMENTED OVERNIGHT PATIENT ON [address] SCAN SHOWED LARGE PLEURAL EFFUSION ECHO MOD-SEVERE AORTIC AND TRICUSPID REGURGITATION - Current Medication List Current Medications: Active Medications Amantadine HCl (Symmetrel -) 100 mg PO BID [facility] Last Admin: 10/10/18 22:20 Dose: 100 mg Chlorhexidine Gluconate (Hibiclens For Decolonization -) 1 applic TP HS [facility] Last Admin: 10/10/18 22:21 Dose: 1 applic Finasteride (Proscar -) 5 mg NR DAILY [facility] Last Admin: 10/10/18 10:36 Dose: 5 mg Sodium Chloride (Normal Saline -) 1,000 mls @ 75 mls/hr IV ASDIR [facility] Last Admin: 10/11/18 02:45 Dose: 75 mls/hr Vancomycin HCl (Vancomycin (Pre-Docked)) 1,000 mg in 250 mls @ 166.667 mls/hr IVPB Q12H [facility]; Protocol Last Admin: 10/11/18 05:15 Dose: 166.667 mls/hr Piperacillin Sod/Tazobactam (Sod 4.5 gm/ Dextrose) 100 mls @ 200 mls/hr IVPB Q8H-IV [facility]; Protocol Last Admin: 10/11/18 02:46 Dose: 200 mls/hr Insulin Aspart (Novolog Vial Sliding Scale -) 1 vial SQ ACHS [facility]; Protocol Last Admin: 10/11/18 06:41 Dose: Not Given Midodrine (Proamatine -) 5 mg PO TID-MID [facility] Last Admin: 10/10/18 18:29 Dose: 5 mg Mupirocin (Bactroban Ointment (For Decolonization) -) 1 applic NS BID [facility] Stop: 10/13/18 09:59 Last Admin: 10/10/18 22:21 Dose: 1 applic Ranitidine HCl (Zantac Oral Solution -) 150 mg GT BID [facility] Last Admin: 10/10/18 22:20 Dose: 150 mg - Objective Vital Signs: Vital Signs Temperature 100.2 F H 10/11/18 06:00 Pulse Rate 71 10/11/18 06:00 Respiratory Rate 12 10/11/18 06:30 Blood Pressure 85/53 L 10/11/18 06:00 O2 Sat by Pulse Oximetry (%) 100 10/10/18 08:14 Constitutional: Yes: Mild Distress Cardiovascular: Yes: Regular Rate and Rhythm Respiratory: Yes: Diminished, Other Gastrointestinal: Yes: Soft Genitourinary: Yes: Incontinence Musculoskeletal: Yes: Muscle Weakness Extremities: Yes: Deformity (CONTRACTED) Integumentary: Yes: Venous Stasis Changes, Other Wound/Incision: Yes: Open to air Neurological: Yes: Confusion, Pre-Existing Deficit ...Motor Strength: LLE, RLE Psychiatric: Yes: Other Labs: CBC, BMP 10/11/18 05:21 INR, PTT INR 2.04 (0.83-1.09) H 10/07/18 18:03 Problem List - Problems (1) Abnormal liver function tests Code(s): R94.5 - ABNORMAL RESULTS OF LIVER FUNCTION STUDIES (2) Afib Code(s): I48.91 - UNSPECIFIED ATRIAL FIBRILLATION (3) Chronic respiratory failure Code(s): J96.10 - CHRONIC RESPIRATORY FAILURE, UNSP W HYPOXIA OR HYPERCAPNIA (4) Fever Code(s): R50.9 - FEVER, UNSPECIFIED (5) Pneumonia Code(s): J18.9 - PNEUMONIA, UNSPECIFIED ORGANISM (6) Sepsis Code(s): A41.9 - SEPSIS, UNSPECIFIED ORGANISM Qualifiers: Sepsis type: sepsis due to unspecified organism Qualified Code(s): A41.9 - Sepsis, unspecified organism Assessment/Plan IV ABX PER ID CULTURES REVIEWED ON VANCOMYCIN AND ZOSYN IV. PALLIATIVE CARE CONSULT TO REVIEWE ADVANCED DIRECTIVES FOR FAMILY. A MEANINGFUL QUALITY OF LIFE WITH A GOOD QUALITY IS HIGHLY UNLIKELY. PULM F/U APPRECIATED CHECK DAILY CHEST XRAYS GENTLE DIURESIS
[2018-10-11 07:02] LABS: BLOOD UREA NITROGEN 11.6 mg/dL (7-18); CREATININE 0.4 mg/dL (0.55-1.3); POTASSIUM 3.8 mmol/L (3.5-5.1)
[2018-10-11 08:02] LABS: CALCIUM 6.9 mg/dL (8.5-10.1)
[2018-10-11] MEDS ORDERED: PT OWN MED DRAWER 7, Y5N ONE (10:04)
[2018-10-11] MEDS: MUPIROCIN 2% TOPICAL OINTMENT FOR DECOLONIZATION NS SCH ×2 (10:15→21:38)
[2018-10-11] MEDS: FINASTERIDE 5 MG TABLET (FP) NR SCH (10:15)
[2018-10-11] MEDS: MIDODRINE HCL 5 MG TABLET PO SCH ×3 (10:15→18:26)
[2018-10-11] MEDS: AMANTADINE HCL 100 MG TABLET PO SCH ×2 (10:15→21:33)
[2018-10-11] MEDS: RANITIDINE HCL 150 MG/10 ML UNIT-DOSE GT SCH ×2 (10:15→21:32)
--- NOTE | 2018-10-11 12:23 | PN ---
Physical Exam: UPDATE 1: Pt's INR 1.6 today; will give Vitamin K and follow INR for potential thoracentesis +/- pigtail catheter tomorrow ICU Resident Note SUBJECTIVE: No acute events overnight. No new events for 24h. Pt remains poorly responsive. Hemodynamics stable while on Midodrine OBJECTIVE: Vital Signs Period Temp Pulse Resp BP Sys/Mcguire Pulse Ox Last 24 Hr 99 F-100.3 F 70-84 11-18 78-93/53-69 GENERAL: Alert and occasionally tracks throughout room, NAD HEENT: Bitemporal wasting, ROE, trach attached to vent LUNGS: Scattered rhonchi bilaterally with diminished bibasillar auscultation, AC mode of vent unchanged from previous HEART: RRR, S1, S2 without murmur ABDOMEN: Soft, Nt/ND, PEG intacts, hypoactive BS EXTREMITIES: 2+ DP pulses, warm, no edema. SKIN: Warm, dry, no rashes or lesions noted Laboratory Results - last 24 hr 10/09/18 10/10/18 10/10/18 05:00 12:50 18:02 WBC RBC Hgb Hct MCV MCH MCHC RDW Plt Count MPV Sodium Potassium Chloride Carbon Dioxide Anion Gap BUN Creatinine Est GFR (CKD-EPI)AfAm Est GFR (CKD-EPI)NonAf POC Glucometer 102 94 Random Glucose Calcium Hep A IgM Ab Confirm Negative Hepatitis A Ab Total Negative Hep Bs Antigen Negative Hep Bs Antibody Non-reactive Hep B Core Total Ab Negative Hep B Core IgM Ab Negative Hepatitis Be Antibody Negative Hepatitis Be Antigen Negative 10/10/18 10/11/18 10/11/18 22:04 05:21 05:21 WBC 6.4 RBC 3.13 L Hgb 9.0 L Hct 27.3 L MCV 87.2 MCH 28.7 MCHC 32.9 RDW 14.6 Plt Count 212 MPV 9.0 Sodium 134 L Potassium 3.8 Chloride 102 Carbon Dioxide 27 Anion Gap 6 L BUN 11.6 Creatinine 0.4 L Est GFR (CKD-EPI)AfAm 132.78 Est GFR (CKD-EPI)NonAf 114.57 POC Glucometer 127 Random Glucose 106 Calcium 6.9 L* Hep A IgM Ab Confirm Hepatitis A Ab Total Hep Bs Antigen Hep Bs Antibody Hep B Core Total Ab Hep B Core IgM Ab Hepatitis Be Antibody Hepatitis Be Antigen 07/02/19 07/02/19 06:36 11:46 WBC RBC Hgb Hct MCV MCH MCHC RDW Plt Count MPV Sodium Potassium Chloride Carbon Dioxide Anion Gap BUN Creatinine Est GFR (CKD-EPI)AfAm Est GFR (CKD-EPI)NonAf POC Glucometer 131 140 Random Glucose Calcium Hep A IgM Ab Confirm Hepatitis A Ab Total Hep Bs Antigen Hep Bs Antibody Hep B Core Total Ab Hep B Core IgM Ab Hepatitis Be Antibody Hepatitis Be Antigen Active Medications Generic Name Dose Route Start Last Admin Trade Name Freq PRN Reason Stop Dose Admin Amantadine HCl 100 mg 10/08/18 10:00 10/11/18 10:15 Symmetrel - PO 100 mg BID LUTHER Administration Chlorhexidine Gluconate 1 applic 10/08/18 22:00 10/10/18 22:21 Hibiclens For Decolonization - TP 1 applic HS LUTHER Administration Finasteride 5 mg 10/08/18 10:00 10/11/18 10:15 Proscar - NR 5 mg DAILY LUTHER Administration Sodium Chloride 1,000 mls @ 75 mls/hr 10/07/18 23:00 10/11/18 02:45 Normal Saline - IV 75 mls/hr ASDIR LUTHER Administration Vancomycin HCl 1,000 mg in 250 mls @ 166.667 mls/hr 10/08/18 18:00 10/11/18 05:15 Vancomycin (Pre-Docked) IVPB 166.667 mls/hr Q12H LUTHER Administration Protocol Piperacillin Sod/Tazobactam 100 mls @ 200 mls/hr 10/08/18 10:00 10/11/18 10: 15 Sod 4.5 gm/ Dextrose IVPB 200 mls/hr Q8H-IV L[facility]HER Administration Protocol Insulin Aspart 1 vial 10/08/18 07:00 10/11/18 11:51 Novolog Vial Sliding Scale - SQ Not Given ACHS LUTHER Protocol Midodrine 5 mg 10/08/18 14:00 10/11/18 10:15 Proamatine - PO 5 mg TID-MID LUTHER Administration Mupirocin 1 applic 10/08/18 10:00 10/11/18 10:15 Bactroban Ointment (For Decolonization) - NS 10/13/18 09:59 1 applic BID LUTHER Administration Ranitidine HCl 150 mg 10/08/18 10:00 10/11/18 10:15 Zantac Oral Solution - GT 150 mg BID LUTHER Administration ASSESSMENT/PLAN: Sepsis 2/2 to PNA Elevated INR Bilateral pleural effusions Traumatic Brain injury --Bedside ultrasound show slight worsening of effusions --Will need to obtain consent of family for pigtail catheter and drainage of fluid --INr ordered due to elevated previously; likely 2/2 to nutritional deficits --[place] INR <1.5 --Overall fever trend decreasing; continue Zosyn and Vancomycin --Continue Midodrine 5mg TID for hemodynamic stability likely 2/2 to autonomic dysfunction --Will attempt to obtain records from [facility]; call placed and sheet faxed to medical records FEN: Fluids: NS@75cc/hr Electrolyte abnormalities: Hypocalcemia despite correction; will give 1gm CaGluc Nutrition: PEG feeds Jevity 1.5 and titrate to nutritional needs PPX: DVT - SCDs GI - Zantac BID GT Dispo: Continue monitoring in ICU; potential pigtail chest tube placement for effusions Case discussed with Dr. Robert Sheppard, DO - IM PGY-3 Visit type - Emergency Visit Emergency Visit: Yes ED Registration Date: 10/07/18 Care time: The patient presented to the Emergency Department on the above date and was hospitalized for further evaluation of their emergent condition. - New Patient This patient is new to me today: No - Critical Care Critical Care patient: Yes Total Critical Care Time (in minutes): 35 Critical Care Statement: The care of this patient involved high complexity decision making to prevent further life threatening deterioration of the patient 's condition and/or to evaluate & treat vital organ system(s) failure or risk of failure.
[2018-10-11] MEDS ORDERED: CALCIUM GLUCONATE 10% - 1,000 MG/10 ML VIAL IVPB ONE (13:00)
--- NOTE | 2018-10-11 13:18 | PN ---
Teaching Attending Note Name of Resident: Ramin Sheppard ATTENDING PHYSICIAN STATEMENT I saw and evaluated the patient. I reviewed the resident's note and discussed the case with the resident. I agree with the resident's findings and plan as documented. SUBJECTIVE: Patient seen and examined in the ICU. Eyes are open. Remains poorly responsive. AC Mode of vent. Hemodynamics are stable. Intake & Output 10/08/18 10/09/18 10/10/18 10/11/18 23:59 23:59 23:59 23:59 Intake Total 1050 2550 1075 1163 Output Total 1600 1550 1000 400 Balance -550 1000 75 763 Weight 161 lb 2 oz 161 lb 174 lb 4.8 oz 178 lb 12.8 oz Last Vital Signs Temp Pulse Resp BP Pulse Ox 100.1 F H 74 12 93/69 100 10/11/18 11:00 10/11/18 11:00 10/11/18 12:13 10/11/18 11:00 10/10/18 08:14 Active Medications Amantadine HCl (Symmetrel -) 100 mg PO BID [facility] Last Admin: 10/11/18 10:15 Dose: 100 mg Chlorhexidine Gluconate (Hibiclens For Decolonization -) 1 applic TP HS [facility] Last Admin: 10/10/18 22:21 Dose: 1 applic Finasteride (Proscar -) 5 mg NR DAILY [facility] Last Admin: 10/11/18 10:15 Dose: 5 mg Sodium Chloride (Normal Saline -) 1,000 mls @ 75 mls/hr IV ASDIR [facility] Last Admin: 10/11/18 02:45 Dose: 75 mls/hr Vancomycin HCl (Vancomycin (Pre-Docked)) 1,000 mg in 250 mls @ 166.667 mls/hr IVPB Q12H [facility]; Protocol Last Admin: 10/11/18 05:15 Dose: 166.667 mls/hr Piperacillin Sod/Tazobactam (Sod 4.5 gm/ Dextrose) 100 mls @ 200 mls/hr IVPB Q8H-IV [facility]; Protocol Last Admin: 10/11/18 10:15 Dose: 200 mls/hr Insulin Aspart (Novolog Vial Sliding Scale -) 1 vial SQ ACHS [facility]; Protocol Last Admin: 10/11/18 11:51 Dose: Not Given Midodrine (Proamatine -) 5 mg PO TID-MID [facility] Last Admin: 10/11/18 10:15 Dose: 5 mg Mupirocin (Bactroban Ointment (For Decolonization) -) 1 applic NS BID [facility] Stop: 10/13/18 09:59 Last Admin: 10/11/18 10:15 Dose: 1 applic Ranitidine HCl (Zantac Oral Solution -) 150 mg GT BID [facility] Last Admin: 10/11/18 10:15 Dose: 150 mg PE: Gen: Chronically ill appearing man, no distress, vented HEENT: bitempororal wasting, PERRL, trach CDI PULM: coarse scattered rhonchi CV: reg unable to appreciate m/r/g ABD: PEG CDI, hypoactive BS NEURO: opens eyes to noxious stimuli Laboratory Results - last 24 hr 10/09/18 10/10/18 10/10/18 05:00 18:02 22:04 WBC RBC Hgb Hct MCV MCH MCHC RDW Plt Count MPV Sodium Potassium Chloride Carbon Dioxide Anion Gap BUN Creatinine Est GFR (CKD-EPI)AfAm Est GFR (CKD-EPI)NonAf POC Glucometer 94 127 Random Glucose Calcium Hep A IgM Ab Confirm Negative Hepatitis A Ab Total Negative Hep Bs Antigen Negative Hep Bs Antibody Non-reactive Hep B Core Total Ab Negative Hep B Core IgM Ab Negative Hepatitis Be Antibody Negative Hepatitis Be Antigen Negative 10/11/18 10/11/18 10/11/18 05:21 05:21 06:36 WBC 6.4 RBC 3.13 L Hgb 9.0 L Hct 27.3 L MCV 87.2 MCH 28.7 MCHC 32.9 RDW 14.6 Plt Count 212 MPV 9.0 Sodium 134 L Potassium 3.8 Chloride 102 Carbon Dioxide 27 Anion Gap 6 L BUN 11.6 Creatinine 0.4 L Est GFR (CKD-EPI)AfAm 132.78 Est GFR (CKD-EPI)NonAf 114.57 POC Glucometer 131 Random Glucose 106 Calcium 6.9 L* Hep A IgM Ab Confirm Hepatitis A Ab Total Hep Bs Antigen Hep Bs Antibody Hep B Core Total Ab Hep B Core IgM Ab Hepatitis Be Antibody Hepatitis Be Antigen 10/11/18 11:46 WBC RBC Hgb Hct MCV MCH MCHC RDW Plt Count MPV Sodium Potassium Chloride Carbon Dioxide Anion Gap BUN Creatinine Est GFR (CKD-EPI)AfAm Est GFR (CKD-EPI)NonAf POC Glucometer 140 Random Glucose Calcium Hep A IgM Ab Confirm Hepatitis A Ab Total Hep Bs Antigen Hep Bs Antibody Hep B Core Total Ab Hep B Core IgM Ab Hepatitis Be Antibody Hepatitis Be Antigen Problem List - Problems (1) Sepsis Code(s): A41.9 - SEPSIS, UNSPECIFIED ORGANISM Qualifiers: Sepsis type: sepsis due to unspecified organism Qualified Code(s): A41.9 - Sepsis, unspecified organism (2) Pneumonia Code(s): J18.9 - PNEUMONIA, UNSPECIFIED ORGANISM (3) Chronic respiratory failure Code(s): J96.10 - CHRONIC RESPIRATORY FAILURE, UNSP W HYPOXIA OR HYPERCAPNIA (4) TBI (traumatic brain injury) Code(s): S06.9X9A - UNSP INTRACRANIAL INJURY W LOC OF UNSP DURATION, INIT Chronic respiratory failure Suspected pneumonia Bilateral pleural effusions Sepsis TBI (traumatic brain injury) ABX coverage IVF Pressors for MAP < 65 AC Mode of vent Glycemic control VTE prophylaxis Check INR: will attempt to obtain consent from family for pigtail drainage of left effusion ICU monitoring for tenuous status Dr Jones Critical care time spent in reviewing chart, evaluating patient and formulating plan - 36 minutes.
[2018-10-11 13:23] LABS: INR 1.69 (0.83-1.09)
[2018-10-11] MEDS ORDERED: PHYTONADIONE 10 MG/1 ML AMP SQ ONE (13:45)
--- NOTE | 2018-10-11 18:22 | PN.GI ---
GI Progress Note Subjective: Hypotension persists Low grade temps Possible plan for pigtail catheter to drain pleural effusions - Objective Vital Signs: Vital Signs Temperature 99.3 F 10/11/18 15:00 Pulse Rate 72 10/11/18 16:00 Respiratory Rate 20 10/11/18 17:26 Blood Pressure 80/55 L 10/11/18 16:00 O2 Sat by Pulse Oximetry (%) 100 10/10/18 08:14 Constitutional: Calm Eyes: No: Sclera Icterus Respiratory: Yes: Diminished (at bases bilaterally) Gastrointestinal Inspection: No: Distention ...Auscultate: Yes: Normoactive Bowel Sounds ...Palpate: No: Tenderness (No grimacing upon palpation) Labs: CBC, BMP 10/11/18 05:21 10/11/18 05:21 INR, PTT INR 1.69 (0.83-1.09) H 10/11/18 13:01 Problem List - Problems (1) Abnormal liver function tests Assessment/Plan: Monitoring LFTs Avoid hepatotoxic agents Continued supportive measures ? goals of care in this overall clinical setting Code(s): R94.5 - ABNORMAL RESULTS OF LIVER FUNCTION STUDIES
--- NOTE | 2018-10-11 19:13 | PN ---
Progress Note (short form) - Note Progress Note: unresponsive trach to vent low grade fevers noted Vital Signs Period Temp Pulse Resp BP Sys/Mcguire Pulse Ox Last 24 Hr 99.3 F-100.3 F 70-74 11-20 78-93/53-69 trach to vent cor-rrr lungs decreased bs at bases abd soft,nt ext +edema chest ct bilateral effusions, probable bilateral lower lobe infiltrates multiple rib fracture, sternal fracture CBC, BMP 10/11/18 05:21 10/11/18 05:21 Microbiology 10/07/18 18:03 Blood - Peripheral Venous Blood Culture - Preliminary NO GROWTH OBTAINED AFTER 96 HOURS, INCUBATION TO CONTINUE FOR 1 DAYS. 10/07/18 18:03 Blood - Peripheral Venous Blood Culture - Preliminary NO GROWTH OBTAINED AFTER 96 HOURS, INCUBATION TO CONTINUE FOR 1 DAYS. 10/10/18 19:02 Urine For Antigen Detection Legionella Antigen - Final 10/10/18 19:02 Urine For Antigen Detection Streptococcus pneumoniae Antigen (M - Final 10/08/18 10:15 Sputum - Endotrachea Suction/Ventilator Gram Stain - Final 10/08/18 10:15 Sputum - Endotrachea Suction/Ventilator Sputum Culture - Final Enterobacter Cloacae 10/07/18 18:03 Urine - Urine Hinkle Urine Culture - Final Yeast Like Organism vanco trough 12.5 Current Medications Amantadine HCl (Symmetrel -) 100 mg PO BID [facility] Last Admin: 10/11/18 10:15 Dose: 100 mg Chlorhexidine Gluconate (Hibiclens For Decolonization -) 1 applic TP HS [facility] Last Admin: 10/10/18 22:21 Dose: 1 applic Finasteride (Proscar -) 5 mg NR DAILY [facility] Last Admin: 10/11/18 10:15 Dose: 5 mg Sodium Chloride (Normal Saline -) 1,000 mls @ 75 mls/hr IV ASDIR [facility] Last Admin: 10/11/18 02:45 Dose: 75 mls/hr Vancomycin HCl (Vancomycin (Pre-Docked)) 1,000 mg in 250 mls @ 166.667 mls/hr IVPB Q12H [facility]; Protocol Last Admin: 10/11/18 18:46 Dose: 166.667 mls/hr Piperacillin Sod/Tazobactam (Sod 4.5 gm/ Dextrose) 100 mls @ 200 mls/hr IVPB Q8H-IV [facility]; Protocol Last Admin: 10/11/18 18:00 Dose: 200 mls/hr Insulin Aspart (Novolog Vial Sliding Scale -) 1 vial SQ ACHS [facility]; Protocol Last Admin: 10/11/18 16:56 Dose: Not Given Midodrine (Proamatine -) 5 mg PO TID-MID [facility] Last Admin: 10/11/18 18:26 Dose: 5 mg Mupirocin (Bactroban Ointment (For Decolonization) -) 1 applic NS BID [facility] Stop: 10/13/18 09:59 Last Admin: 10/11/18 10:15 Dose: 1 applic Ranitidine HCl (Zantac Oral Solution -) 150 mg GT BID [facility] Last Admin: 10/11/18 10:15 Dose: 150 mg a/p FUO with TBI-improved probable pneumonia with effusions-possible drainage in am d/c vanco/zosyn day #3 cefepime history of parkinsons abnl lfts- repeat in am Problem List - Problems (1) Sepsis Code(s): A41.9 - SEPSIS, UNSPECIFIED ORGANISM Qualifiers: Sepsis type: sepsis due to unspecified organism Qualified Code(s): A41.9 - Sepsis, unspecified organism (2) Pneumonia Code(s): J18.9 - PNEUMONIA, UNSPECIFIED ORGANISM (3) Chronic respiratory failure Code(s): J96.10 - CHRONIC RESPIRATORY FAILURE, UNSP W HYPOXIA OR HYPERCAPNIA (4) TBI (traumatic brain injury) Code(s): S06.9X9A - UNSP INTRACRANIAL INJURY W LOC OF UNSP DURATION, INIT
[2018-10-11] MEDS: CHLORHEXIDINE GLUCONATE 4% CLEANSER FOR DECOLONIZATION TP SCH (21:40)
[2018-10-12] MEDS: CEFEPIME 2 GM in DEXTROSE 5%-WATER 100 ML IVPB SCH ×3 (01:31→17:36)
[2018-10-12] MEDS: SODIUM CHLORIDE 1,000 ML IV SCH ×3 (05:00→21:05)
[2018-10-12] MEDS: INSULIN SLIDING SCALE (NOVOLOG) 1 VIAL SQ SCH ×4 (06:01→21:04)
[2018-10-12 06:14] LABS: MCH 28.8 pg (25.7-33.7); MCHC 33.2 g/dl (32.0-35.9); MEAN CELL VOLUME 86.9 fl (80-96); MEAN PLT VOLUME 8.3 fl (7.5-11.1); PLATELET COUNT 224 K/MM3 (134-434); RBC 3.11 M/mm3 (4.00-5.60); RDW 14.4 % (11.9-15.9); WHITE BLOOD COUNT 6.1 K/mm3 (4.0-10.0)
[2018-10-12 06:36] LABS: ALBUMIN 1.4 g/dl (3.4-5.0); BILIRUBIN,DIRECT 0.5 mg/dL (0.0-0.2); BILIRUBIN,TOTAL 0.7 mg/dL (0.2-1); MAGNESIUM 1.7 mg/dL (1.8-2.4); TOT PROT 4.3 g/dl (6.4-8.2)
[2018-10-12 06:47] LABS: INR 1.56 (0.83-1.09); PROTHROMBIN TIME (PATIENT) 18.5 SEC (9.7-13.0)
[2018-10-12] MEDS ORDERED: MAGNESIUM SULF 50% (8.12 MEQ/2 ML-1 GM VIAL) IVPB ONE (07:29)
[2018-10-12] MEDS ORDERED: PT OWN MED DRAWER 7, Y5N ONE ×2 (09:54→17:29)
[2018-10-12] MEDS: MUPIROCIN 2% TOPICAL OINTMENT FOR DECOLONIZATION NS SCH ×2 (09:56→21:03)
[2018-10-12] MEDS: FINASTERIDE 5 MG TABLET (FP) NR SCH (09:56)
[2018-10-12] MEDS: MIDODRINE HCL 5 MG TABLET PO SCH ×3 (09:56→17:36)
[2018-10-12] MEDS: RANITIDINE HCL 150 MG/10 ML UNIT-DOSE GT SCH ×2 (09:56→21:04)
[2018-10-12] MEDS: AMANTADINE HCL 100 MG TABLET PO SCH ×2 (09:56→21:04)
--- NOTE | 2018-10-12 10:49 | PN ---
Progress Note, Physician Chief Complaint: Sepsis Pleural effusion History of Present Illness: awake, non-verbal, lethargic mechanically ventilated Chest tube with serosanguinous output - Current Medication List Current Medications: Active Medications Amantadine HCl (Symmetrel -) 100 mg PO BID [facility] Last Admin: 10/12/18 09:56 Dose: 100 mg Chlorhexidine Gluconate (Hibiclens For Decolonization -) 1 applic TP HS [facility] Last Admin: 10/11/18 21:40 Dose: 1 applic Finasteride (Proscar -) 5 mg NR DAILY [facility] Last Admin: 10/12/18 09:56 Dose: 5 mg Sodium Chloride (Normal Saline -) 1,000 mls @ 75 mls/hr IV ASDIR [facility] Last Admin: 10/12/18 06:02 Dose: Not Given Cefepime HCl 2 gm/ Dextrose 100 mls @ 200 mls/hr IVPB Q8H-IV [facility]; Protocol Last Admin: 10/12/18 09:56 Dose: 200 mls/hr Insulin Aspart (Novolog Vial Sliding Scale -) 1 vial SQ ACHS [facility]; Protocol Last Admin: 10/12/18 06:01 Dose: 2 units Midodrine (Proamatine -) 5 mg PO TID-MID [facility] Last Admin: 10/12/18 09:56 Dose: 5 mg Mupirocin (Bactroban Ointment (For Decolonization) -) 1 applic NS BID [facility] Stop: 10/13/18 09:59 Last Admin: 10/12/18 09:56 Dose: 1 applic Ranitidine HCl (Zantac Oral Solution -) 150 mg GT BID [facility] Last Admin: 10/12/18 09:56 Dose: 150 mg - Objective Vital Signs: Vital Signs Temperature 99.8 F H 10/12/18 09:35 Pulse Rate 72 10/12/18 09:35 Respiratory Rate 18 10/12/18 09:35 Blood Pressure 90/69 10/12/18 09:35 O2 Sat by Pulse Oximetry (%) 99 10/12/18 10:00 Constitutional: Yes: Well Nourished, No Distress, Calm Cardiovascular: Yes: Regular Rate and Rhythm Respiratory: Yes: Mechanically Ventilated, Rhonchi (diffuse) Gastrointestinal: Yes: Normal Bowel Sounds, Soft Musculoskeletal: Yes: Muscle Weakness Edema: Yes (generalized) Peripheral Pulses WNL: Yes Neurological: Yes: Pre-Existing Deficit Labs: CBC, BMP 10/12/18 05:15 10/11/18 05:21 INR, PTT INR 1.56 (0.83-1.09) H 10/12/18 05:15 Assessment/Plan (1) Abnormal liver function tests Assessment/Plan: -steady -U/S abd 10/08/18-shows mild hepatomegaly with fatty infiltration vs hepatocellular disease -GI on board Code(s): R94.5 - ABNORMAL RESULTS OF LIVER FUNCTION STUDIES (2) Chronic respiratory failure Assessment/Plan: -pulm on board -mechanically ventilated -keep SpO2 >90% Code(s): J96.10 - CHRONIC RESPIRATORY FAILURE, UNSP W HYPOXIA OR HYPERCAPNIA (3) Pneumonia Assessment/Plan: -ID on board -no leukocytosis -low grade fevers -Cefepime -tylenol for temp >100F -CXR shows left dense base -urine legionella neg Code(s): J18.9 - PNEUMONIA, UNSPECIFIED ORGANISM (4) Sepsis Assessment/Plan: -ID on board -no leukocytosis -low grade fevers -Cefepime -tylenol for temp >100F -LA normal -pleural fluid cultures neg -sputum culture positive Code(s): A41.9 - SEPSIS, UNSPECIFIED ORGANISM Qualifiers: Sepsis type: sepsis due to unspecified organism Qualified Code(s): A41.9 - Sepsis, unspecified organism (5) Subdural hematoma Assessment/Plan: -Head CT scan reviewed Code(s): S06.5X9A - TRAUM SUBDR HEM W LOC OF UNSP DURATION, INIT (6) TBI (traumatic brain injury) Code(s): S06.9X9A - UNSP INTRACRANIAL INJURY W LOC OF UNSP DURATION, INIT (7) Pleural effusion Assessment/Plan: -Pulm on board -Chest tube in place--serosanguinous output -keep SpO2 >90% -CT scan initially show large left pleural effusion Code(s): J90 - PLEURAL EFFUSION, NOT ELSEWHERE CLASSIFIED
[2018-10-12] MEDS ORDERED: LIDOCAINE HCL 1%, 10 MG/ML (20ML VIAL) ONE (11:18)
--- NOTE | 2018-10-12 11:24 | PN.GI ---
GI Progress Note Subjective: Pt seen/examined at bedside, non-responsive to verbal stimuli, still with low grade fevers, for possible drainage of pleural effusions - Objective Vital Signs: Vital Signs Temperature 99.8 F H 10/12/18 09:35 Pulse Rate 72 10/12/18 09:35 Respiratory Rate 14 10/12/18 11:15 Blood Pressure 90/69 10/12/18 09:35 O2 Sat by Pulse Oximetry (%) 99 10/12/18 10:00 Constitutional: No Distress, Calm Cardiovascular: Yes: WNL, Regular Rate and Rhythm Respiratory: Yes: WNL, Diminished ...Palpate: Yes: Other (Abd soft, no tenderness elicited, non distended, no rebound, guarding or rigidity +PEG in place, receiving tube feeds) Labs: CBC, BMP 10/12/18 05:15 10/11/18 05:21 INR, PTT INR 1.56 (0.83-1.09) H 10/12/18 05:15 Problem List - Problems (1) Abnormal liver function tests Assessment/Plan: 77yo male h/o Parkinsons disease, cardiac arrest s/p trach, PEG with pneumonia and pleural effusions pending drainage catheter with elevated LFTs. US revealing 7mm CBD dilation, gallbladder sludge vs polyp. Likely multifactorial in setting of sepsis vs congestive hepatopathy vs ischemic component vs medications, less likely biliary obstructive process. LFTs now downtrending. Baseline unclear. -Continue supportive measures -Closely monitor LFT trend to ensure normalization -Infectious workup/management of pleural effusions per primary team -Avoid nonessential hepatotoxic medications -Pending course and goals of care discussion recommend follow up US to re- evaluate for gallbladder polyp. Code(s): R94.5 - ABNORMAL RESULTS OF LIVER FUNCTION STUDIES
--- NOTE | 2018-10-12 12:15 | PN ---
Teaching Attending Note Name of Resident: Kayce Soto ATTENDING PHYSICIAN STATEMENT I saw and evaluated the patient. I reviewed the resident's note and discussed the case with the resident. I agree with the resident's findings and plan as documented. SUBJECTIVE: Pt seen and examined in the ICU. Vented, poorly responsive. Borderline hypotensive. Still with low grade temps. OBJECTIVE: Vital Signs Period Temp Pulse Resp BP Sys/Mcguire Pulse Ox Last 24 Hr 99.2 F-100.2 F 70-77 12-20 78-100/55-72 99-100 Intake & Output 10/09/18 10/10/18 10/11/18 10/12/18 23:59 23:59 23:59 23:59 Intake Total 2550 1075 2093 1850 Output Total 1550 1000 800 900 Balance 1000 75 1293 950 Weight 73.028 kg 79.061 kg 81.102 kg 80.558 kg Gen: vented, poorly responsive Heart: RRR Lung: scattered rhonchi Abd: soft, nontender Ext: + edema CBC, BMP 10/12/18 05:15 10/11/18 05:21 Active Medications Amantadine HCl (Symmetrel -) 100 mg PO BID [facility] Last Admin: 10/12/18 09:56 Dose: 100 mg Chlorhexidine Gluconate (Hibiclens For Decolonization -) 1 applic TP HS [facility] Last Admin: 10/11/18 21:40 Dose: 1 applic Finasteride (Proscar -) 5 mg NR DAILY [facility] Last Admin: 10/12/18 09:56 Dose: 5 mg Sodium Chloride (Normal Saline -) 1,000 mls @ 75 mls/hr IV [facility] Last Admin: 10/12/18 06:02 Dose: Not Given Cefepime HCl 2 gm/ Dextrose 100 mls @ 200 mls/hr IVPB Q8H-IV [facility]; Protocol Last Admin: 10/12/18 09:56 Dose: 200 mls/hr Insulin Aspart (Novolog Vial Sliding Scale -) 1 vial SQ ACHS [facility]; Protocol Last Admin: 10/12/18 11:15 Dose: 2 units Midodrine (Proamatine -) 5 mg PO TID-MID [facility] Last Admin: 10/12/18 09:56 Dose: 5 mg Mupirocin (Bactroban Ointment (For Decolonization) -) 1 applic NS BID [facility] Stop: 10/13/18 09:59 Last Admin: 10/12/18 09:56 Dose: 1 applic Ranitidine HCl (Zantac Oral Solution -) 150 mg GT BID [facility] Last Admin: 10/12/18 09:56 Dose: 150 mg ASSESSMENT AND PLAN: r/o Pneumonia Bilateral Pleural Effusions Severe Sepsis Elevated LFTs likely ischemic injury Coagulopathy Volume Overload Traumatic Brain Injury Chronic Respiratory Failure s/p Tracheostomy - continue antibiotics - f/u cultures - will place left pigtail catheter placement - send pleural fluid for cell count, LDH, total protein, pH, glucose, cholesterol, cultures, cytology - will need diuresis when hemodynamically stable - continue volume assist control - enteral feeds - DVT/GI prophylaxis - continue ICU monitoring critical care time spent in reviewing chart, evaluating patient and formulating plan 35 min
--- NOTE | 2018-10-12 13:25 | PROC ---
<Taj Mathur - Last Filed: 10/12/18 13:23> Chest Tube Insertion Consent on Chart: Yes Risks and Benefits Explained: Yes Chest tube #1 Indication: Pleural Effusion Chest Tube Location: Left Lateral Anesthesia: 1% Lidocaine Size (Fr.): 10 Sterile Technique: Yes Tube Sutured to Skin: Yes Chest Tube Collection System: Pleur-Evac Suction: Yes Drainage, Color/Appearance: Straw <Adrian Field MD - Last Filed: 10/12/18 13:59> Procedure Note Procedure: I supervised and was present during the entire procedure. Adrian Field MD
--- NOTE | 2018-10-12 16:26 | PN ---
Physical Exam: SUBJECTIVE: Patient seen and examined on 11/01/2018. No acute events overnight. Family meeting scheduled for this afternoon at 1pm to discuss goals of care. OBJECTIVE: Vital Signs Period Temp Pulse Resp BP Sys/Mcguire Pulse Ox Last 24 Hr 99.2 F-100.1 F 70-77 14-20 78-100/57-72 99-100 GENERAL: The is in no acute distress. HEAD: Normal with no signs of trauma. EYES: Asymmetric pupils R<L bilaterally unresponsive to light, sclera anicteric , conjunctiva clear. ENT: Ears normal, nares patent, moist mucous membranes. NECK: Trachea midline, full range of motion. LUNGS: Patient on ventilator, mechanical breath sounds, no wheezes or crackles. HEART: Regular rate and rhythm, S1, S2 without murmur, rub or gallop. ABDOMEN: Soft, nontender, nondistended, no guarding, no rebound. EXTREMITIES: 2+ pulses, warm, well-perfused,1+ pedal edema to the ankle. NEUROLOGICAL: unable to examine, patient unable to cooperate with exam, did not blink to threat today but does have a blink reflex when touching eyelashes. PSYCH:unable to assess SKIN: Warm, dry, normal turgor. Laboratory Results - last 24 hr 10/11/18 10/11/18 10/12/18 16:52 21:36 05:15 WBC 6.1 RBC 3.11 L Hgb 9.0 L Hct 27.0 L MCV 86.9 MCH 28.8 MCHC 33.2 RDW 14.4 Plt Count 224 MPV 8.3 PT with INR INR POC Glucometer 116 143 Magnesium Total Bilirubin Direct Bilirubin AST ALT Alkaline Phosphatase Total Protein Albumin POC Fluid pH 10/12/18 10/12/18 10/12/18 05:15 05:15 05:25 WBC RBC Hgb Hct MCV MCH MCHC RDW Plt Count MPV PT with INR 18.50 H INR 1.56 H POC Glucometer 155 Magnesium 1.7 L Total Bilirubin 0.7 Direct Bilirubin 0.5 H AST 62 H ALT 193 H Alkaline Phosphatase 256 H Total Protein 4.3 L Albumin 1.4 L POC Fluid pH 10/12/18 10/12/18 11:08 14:20 WBC RBC Hgb Hct MCV MCH MCHC RDW Plt Count MPV PT with INR INR POC Glucometer 184 Magnesium Total Bilirubin Direct Bilirubin AST ALT Alkaline Phosphatase Total Protein Albumin POC Fluid pH Cancelled Active Medications Generic Name Dose Route Start Last Admin Trade Name Freq PRN Reason Stop Dose Admin Amantadine HCl 100 mg 10/08/18 10:00 10/12/18 09:56 Symmetrel - PO 100 mg BID [facility] Administration Chlorhexidine Gluconate 1 applic 10/08/18 22:00 10/11/18 21:40 Hibiclens For Decolonization - TP 1 applic HS [facility] Administration Finasteride 5 mg 10/08/18 10:00 10/12/18 09:56 Proscar - NR 5 mg DAILY [facility] Administration Heparin Sodium (Porcine) 5,000 unit 10/12/18 22:00 Heparin - SQ BID [facility] Sodium Chloride 1,000 mls @ 75 mls/hr 10/07/18 23:00 10/12/18 06:02 Normal Saline - IV Not Given ASDIR [facility] Cefepime HCl 2 gm/ Dextrose 100 mls @ 200 mls/hr 10/12/18 02:00 10/12/18 09: 56 IVPB 200 mls/hr Q8H-IV [facility] Administration Protocol Insulin Aspart 1 vial 10/08/18 07:00 10/12/18 11:15 Novolog Vial Sliding Scale - SQ 2 units ACHS [facility] Administration Protocol Midodrine 5 mg 10/08/18 14:00 10/12/18 13:29 Proamatine - PO 5 mg TID-MID [facility] Administration Mupirocin 1 applic 10/08/18 10:00 10/12/18 09:56 Bactroban Ointment (For Decolonization) - NS 10/13/18 09:59 1 applic BID [facility] Administration Ranitidine HCl 150 mg 10/08/18 10:00 10/12/18 09:56 Zantac Oral Solution - GT 150 mg BID [facility] Administration ASSESSMENT/PLAN: Mr. Lovelace is a 77 y/o man with a complicated medical history admitted to the ICU for workup of recurrent fevers in the setting of recent TBI and cardiac arrest. The patient is currently unable to actively participate in his physical exam and cannot communicate verbally. ID Fevers potentially central in origin given patient's history of traumatic brain injury, and subarachnoid hemorrhage. Fevers may be septic in origin, however a source is yet to be identified. Patient had bilateral pleural effusions on CT, which could be indicative of infection. Tracheostomy cultures grew enterobacter resistent to zosyn. Abx changed to cefepime 2g 100 mls @ 200 mls/hr IVPB per IDs reccommendation. - f/u blood and urine cultures - continue cefepime 2g 100mls@ 200mls/hr IVPB - continue maintenance fluids at 75mL/ hour - appreciate ID reccs Pulmonary - Acute on chronic hypoxic respiratory failure - Patient is s/p tracheostomy - Chest CT reveals bilateral loculated pleural effusions, consider draining if accessible fluid pocket can be visualized with ultrasound - Place pigtail catheter -F/u pleural fluid cytology, cultures, LDH, total protein, glucose, cell count, pH, cholesterol - Maintain oxygen saturation greater than 90% Neuro - S/p TBI and subarrachnoid hemorrhage after recent fall. Patient was diagnosed with Parkinson's disease 2 years ago (according to son) - continue amantadine 100mg PO BID - aspiration precautions Cardiovascular - History of cardiac arrest 2 weeks ago at [facility], Afib -Will hold off on anticoagulation given recent brain bleed -Cardiac monitoring Gastrointestinal - Transaminitis: Improved to AST 62 ALT 193 from AST 393 ALT 638, however still elevated. Alkphos 256. Total bilirubin 0.7 - Compare to prior labs from [facility] - PEG tube site clean, dry. FEN -IV normal saline - Replete electrolytes as necessary -NPO Prophylaxis -SCDs Disposition: Goals of care meeting scheduled for today. Family to determine DNR status. Patient remains full code at this time. Visit type - Emergency Visit Emergency Visit: No - New Patient This patient is new to me today: No - Critical Care Critical Care patient: Yes Total Critical Care Time (in minutes): 36 Critical Care Statement: The care of this patient involved high complexity decision making to prevent further life threatening deterioration of the patient 's condition and/or to evaluate & treat vital organ system(s) failure or risk of failure.
--- NOTE | 2018-10-12 17:29 | PN ---
Progress Note (short form) - Note Progress Note: unresponsive-opens eyes spontaneously trach to vent low grade fevers noted chest tube placed today- fluid is serosanguinous-cell count and chmistries and gram stain pending Vital Signs Period Temp Pulse Resp BP Sys/Mcguire Pulse Ox Last 24 Hr 99.2 F-100.1 F 70-77 14-20 78-100/57-72 99-100 cor-rrr lungs decreased bs at bases abd soft,nt ext + edema left chest tube trach to vent CBC, BMP 10/12/18 05:15 10/11/18 05:21 Microbiology 10/07/18 18:03 Blood - Peripheral Venous Blood Culture - Preliminary NO GROWTH OBTAINED AFTER 96 HOURS, INCUBATION TO CONTINUE FOR 1 DAYS. 10/07/18 18:03 Blood - Peripheral Venous Blood Culture - Preliminary NO GROWTH OBTAINED AFTER 96 HOURS, INCUBATION TO CONTINUE FOR 1 DAYS. 10/10/18 19:02 Urine For Antigen Detection Legionella Antigen - Final 10/10/18 19:02 Urine For Antigen Detection Streptococcus pneumoniae Antigen (M - Final 10/08/18 10:15 Sputum - Endotrachea Suction/Ventilator Gram Stain - Final 10/08/18 10:15 Sputum - Endotrachea Suction/Ventilator Sputum Culture - Final Enterobacter Cloacae 10/07/18 18:03 Urine - Urine Hinkle Urine Culture - Final Yeast Like Organism a/p FUO with TBI- probable pneumonia with effusions-s/p chest tube placement cefepime day #1 history of parkinsons s/p arrest abnl lfts- trending down albumin is 1.3 overall prognosis is grim- discussions with family are in progress by ICU team d/w ICU resident Problem List - Problems (1) Sepsis Code(s): A41.9 - SEPSIS, UNSPECIFIED ORGANISM Qualifiers: Sepsis type: sepsis due to unspecified organism Qualified Code(s): A41.9 - Sepsis, unspecified organism (2) Pneumonia Code(s): J18.9 - PNEUMONIA, UNSPECIFIED ORGANISM (3) Chronic respiratory failure Code(s): J96.10 - CHRONIC RESPIRATORY FAILURE, UNSP W HYPOXIA OR HYPERCAPNIA (4) TBI (traumatic brain injury) Code(s): S06.9X9A - UNSP INTRACRANIAL INJURY W LOC OF UNSP DURATION, INIT
[2018-10-12 17:38] LABS: BF WBC & OTHER NUCLEATED CELLS 383 /mm3; BODY FLUID MONOCYTE 14 %
[2018-10-12 17:39] LABS: BODY FLUID MACROPHAGES 50 %; BODY FLUID MESOTHELIAL 9 %
[2018-10-12] MEDS: HEPARIN NA (PORCINE) 5,000 UNITS/ML 1ML VIAL SQ SCH (21:04)
[2018-10-12] MEDS: CHLORHEXIDINE GLUCONATE 4% CLEANSER FOR DECOLONIZATION TP SCH (21:04)
[2018-10-13] MEDS: CEFEPIME 2 GM in DEXTROSE 5%-WATER 100 ML IVPB SCH ×3 (01:23→18:53)
[2018-10-13 06:01] LABS: HEMATOCRIT 25.9 % (35.4-49); HEMOGLOBIN 8.7 GM/dL (11.7-16.9); MCH 29.5 pg (25.7-33.7); MCHC 33.7 g/dl (32.0-35.9); MEAN CELL VOLUME 87.5 fl (80-96); PLATELET COUNT 215 K/MM3 (134-434); RBC 2.96 M/mm3 (4.00-5.60); RDW 14.3 % (11.9-15.9); WHITE BLOOD COUNT 6.7 K/mm3 (4.0-10.0)
[2018-10-13] MEDS: INSULIN SLIDING SCALE (NOVOLOG) 1 VIAL SQ SCH ×4 (06:25→22:41)
[2018-10-13] MEDS: SODIUM CHLORIDE 1,000 ML IV SCH ×2 (06:25→18:53)
[2018-10-13 06:44] LABS: ALBUMIN 1.3 g/dl (3.4-5.0); BILIRUBIN,TOTAL 0.6 mg/dL (0.2-1); BLOOD UREA NITROGEN 7.2 mg/dL (7-18); CREATININE 0.3 mg/dL (0.55-1.3); POTASSIUM 3.7 mmol/L (3.5-5.1)
[2018-10-13] MEDS ORDERED: PT OWN MED DRAWER 7, Y5N ONE ×3 (09:05→15:51)
[2018-10-13] MEDS: RANITIDINE HCL 150 MG/10 ML UNIT-DOSE GT SCH ×2 (09:07→21:59)
[2018-10-13] MEDS: MIDODRINE HCL 5 MG TABLET PO SCH ×3 (09:07→20:01)
[2018-10-13] MEDS: HEPARIN NA (PORCINE) 5,000 UNITS/ML 1ML VIAL SQ SCH ×2 (09:08→21:59)
[2018-10-13] MEDS: FINASTERIDE 5 MG TABLET (FP) NR SCH (09:08)
[2018-10-13] MEDS: AMANTADINE HCL 100 MG TABLET PO SCH ×2 (09:08→21:59)
--- NOTE | 2018-10-13 10:28 | PN ---
Teaching Attending Note Name of Resident: Kayce Soto ATTENDING PHYSICIAN STATEMENT I saw and evaluated the patient. I reviewed the resident's note and discussed the case with the resident. I agree with the resident's findings and plan as documented. SUBJE Patient seen and examined in the ICU. Vented, poorly responsive. Pigtail inserted yesterday, draining serosanguinous effusion. OBJECTIVE: Intake & Output 10/10/18 10/11/18 10/12/18 10/13/18 23:59 23:59 23:59 23:59 Intake Total 1075 2093 3700 1850 Output Total 4513 039 3981 1130 Balance 75 1293 1180 720 Weight 174 lb 4.8 oz 178 lb 12.8 oz 177 lb 9.6 oz 179 lb Last Vital Signs Temp Pulse Resp BP Pulse Ox 99.8 F H 75 17 97/74 98 10/13/18 10:00 10/13/18 10:00 10/13/18 10:00 10/13/18 10:00 10/13/18 08:27 Active Medications Amantadine HCl (Symmetrel -) 100 mg PO BID [facility] Last Admin: 10/13/18 09:08 Dose: 100 mg Chlorhexidine Gluconate (Hibiclens For Decolonization -) 1 applic TP HS [facility] Last Admin: 10/12/18 21:04 Dose: 1 applic Finasteride (Proscar -) 5 mg NR DAILY [facility] Last Admin: 10/13/18 09:08 Dose: 5 mg Heparin Sodium (Porcine) (Heparin -) 5,000 unit SQ BID [facility] Last Admin: 10/13/18 09:08 Dose: 5,000 unit Sodium Chloride (Normal Saline -) 1,000 mls @ 75 mls/hr IV [facility] Last Admin: 10/13/18 06:25 Dose: Not Given Cefepime HCl 2 gm/ Dextrose 100 mls @ 200 mls/hr IVPB Q8H-IV [facility]; Protocol Last Admin: 10/13/18 09:08 Dose: 200 mls/hr Insulin Aspart (Novolog Vial Sliding Scale -) 1 vial SQ ACHS [facility]; Protocol Last Admin: 10/13/18 06:25 Dose: Not Given Midodrine (Proamatine -) 5 mg PO TID-MID [facility] Last Admin: 10/13/18 09:07 Dose: 5 mg Ranitidine HCl (Zantac Oral Solution -) 150 mg GT BID [facility] Last Admin: 10/13/18 09:07 Dose: 150 mg Gen: vented, poorly responsive Heart: RRR Lung: scattered rhonchi Abd: soft, nontender Ext: + edema Laboratory Results - last 24 hr 10/12/18 10/12/18 10/12/18 11:08 13:17 14:20 WBC RBC Hgb Hct MCV MCH MCHC RDW Plt Count MPV Sodium Potassium Chloride Carbon Dioxide Anion Gap BUN Creatinine Est GFR (CKD-EPI)AfAm Est GFR (CKD-EPI)NonAf POC Glucometer 184 Random Glucose Calcium Total Bilirubin AST ALT Alkaline Phosphatase Total Protein Albumin Fluid Source Pleural POC Fluid pH Cancelled Fluid WBC 383 Fluid RBC 2781 Fluid Neutrophils 17 Fluid Lymphocytes 10 Pleural Monocytes 14 Pleural Macrophages 50 Pleural Mesothelial 9 10/12/18 10/12/18 10/13/18 16:48 20:46 05:15 WBC 6.7 RBC 2.96 L Hgb 8.7 L Hct 25.9 L MCV 87.5 MCH 29.5 MCHC 33.7 RDW 14.3 Plt Count 215 MPV 8.0 Sodium Potassium Chloride Carbon Dioxide Anion Gap BUN Creatinine Est GFR (CKD-EPI)AfAm Est GFR (CKD-EPI)NonAf POC Glucometer 148 155 Random Glucose Calcium Total Bilirubin AST ALT Alkaline Phosphatase Total Protein Albumin Fluid Source POC Fluid pH Fluid WBC Fluid RBC Fluid Neutrophils Fluid Lymphocytes Pleural Monocytes Pleural Macrophages Pleural Mesothelial 10/13/18 10/13/18 05:15 05:25 WBC RBC Hgb Hct MCV MCH MCHC RDW Plt Count MPV Sodium 137 Potassium 3.7 Chloride 104 Carbon Dioxide 31 Anion Gap 3 L BUN 7.2 Creatinine 0.3 L Est GFR (CKD-EPI)AfAm 149.45 Est GFR (CKD-EPI)NonAf 128.95 POC Glucometer 122 Random Glucose 123 H Calcium 7.0 L Total Bilirubin 0.6 AST 49 H ALT 148 H Alkaline Phosphatase 206 H Total Protein 4.0 L Albumin 1.3 L Fluid Source POC Fluid pH Fluid WBC Fluid RBC Fluid Neutrophils Fluid Lymphocytes Pleural Monocytes Pleural Macrophages Pleural Mesothelial ASSESSMENT AND PLAN: Suspected Pneumonia Bilateral Pleural Effusions Severe Sepsis Elevated LFTs likely ischemic injury Coagulopathy Volume Overload Traumatic Brain Injury Chronic Respiratory Failure s/p Tracheostomy - continue antibiotics - Monitor left pigtail outcome - Follow Pleural fluid analysis - continue volume assist control - enteral feeds - DVT/GI prophylaxis - Vent floor Dr Jones
--- NOTE | 2018-10-13 10:30 | PN ---
Physical Exam: SUBJECTIVE: Patient seen and examined on 10/13/2018. No acute events overnight. Family meeting yesterday (10/12) to discuss goals of care, family still deciding on DNR status of patient. OBJECTIVE: Vital Signs Period Temp Pulse Resp BP Sys/Mcguire Pulse Ox Last 24 Hr 99.2 F-100.1 F 70-78 13-18 82-100/60-74 98-99 GENERAL: The patient is in no acute distress. HEAD: Normal, scar on R forehead EYES: Asymmetric pupils R<L bilaterally unresponsive to light, sclera anicteric , conjunctiva clear. ENT: Ears normal, nares patent, moist mucous membranes. NECK: Trachea midline, full range of motion. LUNGS: Patient on ventilator, mechanical breath sounds, no wheezes or crackles. HEART: Regular rate and rhythm, S1, S2 without murmur, rub or gallop. ABDOMEN: Soft, nontender, nondistended, no guarding, no rebound. EXTREMITIES: 2+ pulses, warm, well-perfused,1+ pedal edema to mid-dahl, bilateral edema in both hands. NEUROLOGICAL: unable to examine, patient unable to cooperate with exam, did not blink to threat today but does have a blink reflex when touching eyelashes. PSYCH:unable to assess SKIN: Warm, dry, normal turgor. Laboratory Results - last 24 hr 10/12/18 10/12/18 10/12/18 11:08 13:17 14:20 WBC RBC Hgb Hct MCV MCH MCHC RDW Plt Count MPV Sodium Potassium Chloride Carbon Dioxide Anion Gap BUN Creatinine Est GFR (CKD-EPI)AfAm Est GFR (CKD-EPI)NonAf POC Glucometer 184 Random Glucose Calcium Total Bilirubin AST ALT Alkaline Phosphatase Total Protein Albumin Fluid Source Pleural POC Fluid pH Cancelled Fluid WBC 383 Fluid RBC 2781 Fluid Neutrophils 17 Fluid Lymphocytes 10 Pleural Monocytes 14 Pleural Macrophages 50 Pleural Mesothelial 9 10/12/18 10/12/18 10/13/18 16:48 20:46 05:15 WBC 6.7 RBC 2.96 L Hgb 8.7 L Hct 25.9 L MCV 87.5 MCH 29.5 MCHC 33.7 RDW 14.3 Plt Count 215 MPV 8.0 Sodium Potassium Chloride Carbon Dioxide Anion Gap BUN Creatinine Est GFR (CKD-EPI)AfAm Est GFR (CKD-EPI)NonAf POC Glucometer 148 155 Random Glucose Calcium Total Bilirubin AST ALT Alkaline Phosphatase Total Protein Albumin Fluid Source POC Fluid pH Fluid WBC Fluid RBC Fluid Neutrophils Fluid Lymphocytes Pleural Monocytes Pleural Macrophages Pleural Mesothelial 10/13/18 10/13/18 05:15 05:25 WBC RBC Hgb Hct MCV MCH MCHC RDW Plt Count MPV Sodium 137 Potassium 3.7 Chloride 104 Carbon Dioxide 31 Anion Gap 3 L BUN 7.2 Creatinine 0.3 L Est GFR (CKD-EPI)AfAm 149.45 Est GFR (CKD-EPI)NonAf 128.95 POC Glucometer 122 Random Glucose 123 H Calcium 7.0 L Total Bilirubin 0.6 AST 49 H ALT 148 H Alkaline Phosphatase 206 H Total Protein 4.0 L Albumin 1.3 L Fluid Source POC Fluid pH Fluid WBC Fluid RBC Fluid Neutrophils Fluid Lymphocytes Pleural Monocytes Pleural Macrophages Pleural Mesothelial Active Medications Generic Name Dose Route Start Last Admin Trade Name Freq PRN Reason Stop Dose Admin Amantadine HCl 100 mg 10/08/18 10:00 10/13/18 09:08 Symmetrel - PO 100 mg BID [facility] Administration Chlorhexidine Gluconate 1 applic 10/08/18 22:00 10/12/18 21:04 Hibiclens For Decolonization - TP 1 applic HS [facility] Administration Finasteride 5 mg 10/08/18 10:00 10/13/18 09:08 Proscar - NR 5 mg DAILY [facility] Administration Heparin Sodium (Porcine) 5,000 unit 10/12/18 22:00 10/13/18 09:08 Heparin - SQ 5,000 unit BID [facility] Administration Sodium Chloride 1,000 mls @ 75 mls/hr 10/07/18 23:00 10/13/18 06:25 Normal Saline - IV Not Given ASDIR [facility] Cefepime HCl 2 gm/ Dextrose 100 mls @ 200 mls/hr 10/12/18 02:00 10/13/18 09: 08 IVPB 200 mls/hr Q8H-IV [facility] Administration Protocol Insulin Aspart 1 vial 10/08/18 07:00 10/13/18 06:25 Novolog Vial Sliding Scale - SQ Not Given ACHS [facility] Protocol Midodrine 5 mg 10/08/18 14:00 10/13/18 09:07 Proamatine - PO 5 mg TID-MID [facility] Administration Ranitidine HCl 150 mg 10/08/18 10:00 10/13/18 09:07 Zantac Oral Solution - GT 150 mg BID [facility] Administration ASSESSMENT/PLAN: ASSESSMENT/PLAN: Mr. Lovelace is a 77 y/o man with a complicated medical history admitted to the ICU for workup of recurrent fevers in the setting of recent TBI and cardiac arrest. The patient is currently unable to actively participate in his physical exam and cannot communicate verbally. ID Fevers potentially central in origin given patient's history of traumatic brain injury, and subarachnoid hemorrhage. Fevers may be septic in origin, however a source is yet to be identified. Patient had bilateral pleural effusions on CT, which could be indicative of infection. Pigtail catheter placed on 10/12/2018, pending gram stain, cultures, and chemistries. Tracheostomy cultures grew enterobacter resistent to zosyn. Abx changed to cefepime 2g 100 mls @ 200 mls/hr IVPB per IDs reccommendation. - f/u blood and urine cultures -f/u pleural cultures - continue cefepime 2g 100mls@ 200mls/hr IVPB - continue maintenance fluids at 75mL/ hour - appreciate ID reccs Pulmonary - Acute on chronic hypoxic respiratory failure - Patient is s/p tracheostomy - Chest CT reveals bilateral loculated pleural effusions, consider draining if accessible fluid pocket can be visualized with ultrasound - Pt is s/p pigtail catheter placement on 10/12/2018 -F/u pleural fluid cytology, cultures, LDH, total protein, glucose, cell count, pH, cholesterol - Maintain oxygen saturation greater than 90% Neuro - S/p TBI and subarrachnoid hemorrhage after recent fall. Patient was diagnosed with Parkinson's disease 2 years ago (according to son) - continue amantadine 100mg PO BID - aspiration precautions Cardiovascular - History of cardiac arrest 2 weeks ago at [facility], Afib -Will hold off on anticoagulation given recent brain bleed -Cardiac monitoring - patient not currently on pressors MAPS stable above 65 Gastrointestinal - Transaminitis: Improved to AST 62 ALT 193 from AST 393 ALT 638, however still elevated. Alkphos 256. Total bilirubin 0.7 - Compare to prior labs from [facility] - PEG tube site clean, dry. FEN -IV normal saline - Replete electrolytes as necessary -NPO Prophylaxis -SCDs Disposition: Patient is currently stable to be transferred to . Family to determine DNR status. Patient remains full code at this time. Visit type - Emergency Visit Emergency Visit: Yes ED Registration Date: 10/07/18 Care time: The patient presented to the Emergency Department on the above date and was hospitalized for further evaluation of their emergent condition. - New Patient This patient is new to me today: No - Critical Care Critical Care patient: Yes Total Critical Care Time (in minutes): 36 Critical Care Statement: The care of this patient involved high complexity decision making to prevent further life threatening deterioration of the patient 's condition and/or to evaluate & treat vital organ system(s) failure or risk of failure.
--- NOTE | 2018-10-13 18:20 | PN ---
Progress Note, Physician Chief Complaint: Sepsis Pleural effusion History of Present Illness: awake, non-verbal, lethargic mechanically ventilated Chest tube with serosanguinous output - Current Medication List Current Medications: Active Medications Amantadine HCl (Symmetrel -) 100 mg PO BID [facility] Chlorhexidine Gluconate (Hibiclens For Decolonization -) 1 applic TP HS [facility] Finasteride (Proscar -) 5 mg NR DAILY [facility] Heparin Sodium (Porcine) (Heparin -) 5,000 unit SQ BID [facility] Cefepime HCl 2 gm/ Dextrose 100 mls @ 200 mls/hr IVPB Q8H-IV [facility]; Protocol Sodium Chloride (Normal Saline -) 1,000 mls @ 75 mls/hr IV ASDIR [facility] Insulin Aspart (Novolog Vial Sliding Scale -) 1 vial SQ ACHS [facility]; Protocol Last Admin: 10/13/18 17:14 Dose: Not Given Midodrine (Proamatine -) 5 mg PO TID-MID [facility] Ranitidine HCl (Zantac Oral Solution -) 150 mg GT BID [facility] - Objective Vital Signs: Vital Signs Temperature 99.7 F H 10/13/18 16:00 Pulse Rate 74 10/13/18 16:00 Respiratory Rate 16 10/13/18 18:18 Blood Pressure 98/68 10/13/18 16:00 O2 Sat by Pulse Oximetry (%) 99 10/13/18 15:39 Constitutional: Yes: Well Nourished, No Distress, Calm Cardiovascular: Yes: Regular Rate and Rhythm Respiratory: Yes: Mechanically Ventilated, Rhonchi (diffuse) Gastrointestinal: Yes: Normal Bowel Sounds, Soft Genitourinary: Yes: Hinkle Present Musculoskeletal: Yes: Other (generalized atrophy) Edema: Yes (generalized) Peripheral Pulses WNL: Yes Neurological: Yes: Pre-Existing Deficit Labs: CBC, BMP 10/13/18 05:15 10/13/18 05:15 INR, PTT INR 1.56 (0.83-1.09) H 10/12/18 05:15 Assessment/Plan (1) Abnormal liver function tests Assessment/Plan: -steady -U/S abd 10/08/18-shows mild hepatomegaly with fatty infiltration vs hepatocellular disease -GI on board Code(s): R94.5 - ABNORMAL RESULTS OF LIVER FUNCTION STUDIES (2) Chronic respiratory failure Assessment/Plan: -pulm on board -mechanically ventilated -keep SpO2 >90% Code(s): J96.10 - CHRONIC RESPIRATORY FAILURE, UNSP W HYPOXIA OR HYPERCAPNIA (3) Pneumonia Assessment/Plan: -ID on board -no leukocytosis -low grade fevers -Cefepime -tylenol for temp >100F -CXR shows left dense base -urine legionella neg Code(s): J18.9 - PNEUMONIA, UNSPECIFIED ORGANISM (4) Sepsis Assessment/Plan: -ID on board -no leukocytosis -low grade fevers -Cefepime -tylenol for temp >100F -LA normal -pleural fluid cultures neg -sputum culture positive Code(s): A41.9 - SEPSIS, UNSPECIFIED ORGANISM Qualifiers: Sepsis type: sepsis due to unspecified organism Qualified Code(s): A41.9 - Sepsis, unspecified organism (5) Subdural hematoma Assessment/Plan: -Head CT scan reviewed Code(s): S06.5X9A - TRAUM SUBDR HEM W LOC OF UNSP DURATION, INIT (6) TBI (traumatic brain injury) Code(s): S06.9X9A - UNSP INTRACRANIAL INJURY W LOC OF UNSP DURATION, INIT (7) Pleural effusion Assessment/Plan: -Pulm on board -Chest tube in place--serosanguinous output -keep SpO2 >90% -CT scan initially show large left pleural effusion Code(s): J90 - PLEURAL EFFUSION, NOT ELSEWHERE CLASSIFIED
[2018-10-13] MEDS ORDERED: CHLORHEXIDINE GLUCONATE 4% CLEANSER FOR DECOLONIZATION TP SCH (22:00)
[2018-10-14] MEDS: CEFEPIME 2 GM in DEXTROSE 5%-WATER 100 ML IVPB SCH ×3 (01:54→18:39)
--- NOTE | 2018-10-14 05:30 | RAPID ---
Physical Examination Vital Signs: Vital Signs Temperature 98.1 F 10/14/18 02:00 Pulse Rate 70 10/14/18 02:00 Respiratory Rate 15 10/14/18 02:34 Blood Pressure 95/64 10/14/18 02:00 O2 Sat by Pulse Oximetry (%) 99 10/13/18 15:39 Findings/Remarks: Rapid response was called, patient was bradycardic and desaturating. On arrival his HR was 78, and Pulse ox was 98%. Appears pt's extremities are cold and machine was not picking up signals. Another machine was brought in and normal HR and O2 Sat was resulted. ABG ordered to confirm accurate O2 saturation. ABG showed: pH 7.48/ pCO2 38.2/ pO2 265/HCO3 28.2/ O2 Sat 100 Labs: CBC, BMP 10/13/18 05:15 10/13/18 05:15
[2018-10-14 05:53] LABS: ARTERIAL BLOOD GAS BASE EXCESS 4.8 meq/l (-2-2); ARTERIAL BLOOD GAS PCO2 38.2 mmHg (35-45); ARTERIAL BLOOD GAS PO2 265 mmHg (80-105); ARTERIAL BLOOD GAS pH 7.48 (7.35-7.45)
[2018-10-14 05:55] LABS: ALLENS TEST POSITIVE
[2018-10-14] MEDS: INSULIN SLIDING SCALE (NOVOLOG) 1 VIAL SQ SCH ×4 (06:08→21:55)
[2018-10-14] MEDS ORDERED: PT OWN MED DRAWER 7, Y5N ONE ×3 (08:22→17:58)
[2018-10-14] MEDS: RANITIDINE HCL 150 MG/10 ML UNIT-DOSE GT SCH ×2 (09:49→21:39)
[2018-10-14] MEDS: MIDODRINE HCL 5 MG TABLET PO SCH ×3 (09:49→19:02)
[2018-10-14] MEDS: FINASTERIDE 5 MG TABLET (FP) NR SCH (09:50)
[2018-10-14] MEDS: AMANTADINE HCL 100 MG TABLET PO SCH ×2 (09:50→21:40)
[2018-10-14] MEDS: HEPARIN NA (PORCINE) 5,000 UNITS/ML 1ML VIAL SQ SCH ×2 (09:50→21:39)
--- NOTE | 2018-10-14 10:31 | PN ---
Progress Note, Physician Chief Complaint: Sepsis Pleural Effusion History of Present Illness: Previous notes and events reviewed awake, non-verbal, lethargic mechanically ventilated Chest tube with serosanguinous output - Current Medication List Current Medications: Active Medications Acetaminophen (Tylenol -) 650 mg PO Q6H PRN PRN Reason: FEVER Amantadine HCl (Symmetrel -) 100 mg PO BID [facility] Last Admin: 10/14/18 09:50 Dose: 100 mg Finasteride (Proscar -) 5 mg NR DAILY [facility] Last Admin: 10/14/18 09:50 Dose: 5 mg Heparin Sodium (Porcine) (Heparin -) 5,000 unit SQ BID [facility] Last Admin: 10/14/18 09:50 Dose: 5,000 unit Cefepime HCl 2 gm/ Dextrose 100 mls @ 200 mls/hr IVPB Q8H-IV [facility]; Protocol Last Admin: 10/14/18 09:50 Dose: 200 mls/hr Sodium Chloride (Normal Saline -) 1,000 mls @ 75 mls/hr IV ASDIR [facility] Last Admin: 10/13/18 18:53 Dose: 75 mls/hr Insulin Aspart (Novolog Vial Sliding Scale -) 1 vial SQ ACHS [facility]; Protocol Last Admin: 10/14/18 06:08 Dose: Not Given Midodrine (Proamatine -) 5 mg PO TID-MID [facility] Last Admin: 10/14/18 09:49 Dose: 5 mg Ranitidine HCl (Zantac Oral Solution -) 150 mg GT BID [facility] Last Admin: 10/14/18 09:49 Dose: 150 mg - Objective Vital Signs: Vital Signs Temperature 99.2 F 10/14/18 05:26 Pulse Rate 71 10/14/18 05:26 Respiratory Rate 16 10/14/18 06:35 Blood Pressure 110/67 10/14/18 05:26 O2 Sat by Pulse Oximetry (%) 99 10/13/18 21:00 Constitutional: Yes: No Distress, Calm, Other (non verbal) Eyes: Yes: Conjunctiva Clear Neck: Yes: Other (trach) Cardiovascular: Yes: Regular Rate and Rhythm Respiratory: Yes: Mechanically Ventilated, Rhonchi Gastrointestinal: Yes: Normal Bowel Sounds, Soft, Other (G tube) Genitourinary: Yes: Hinkle Present Musculoskeletal: Yes: Muscle Weakness Extremities: Yes: WNL Edema: No Neurological: Yes: Alert, Pre-Existing Deficit Labs: CBC, BMP 10/13/18 05:15 10/13/18 05:15 INR, PTT INR 1.56 (0.83-1.09) H 10/12/18 05:15 Microbiology 10/12/18 14:20 Pleural Fluid Gram Stain - Final 10/12/18 14:20 Pleural Fluid Body Fluid Culture - Final NO GROWTH OF AEROBIC ORGANISMS AFTER 48 HOURS INCUBATION 10/12/18 14:20 Pleural Fluid Anaerobic Culture - Final NO ANAEROBES WERE ISOLATED 10/07/18 18:03 Blood - Peripheral Venous Blood Culture - Final NO GROWTH AFTER 5 DAYS INCUBATION 10/07/18 18:03 Blood - Peripheral Venous Blood Culture - Final NO GROWTH AFTER 5 DAYS INCUBATION 10/10/18 19:02 Urine For Antigen Detection Legionella Antigen - Final 10/10/18 19:02 Urine For Antigen Detection Streptococcus pneumoniae Antigen (M - Final 10/08/18 10:15 Sputum - Endotrachea Suction/Ventilator Gram Stain - Final 10/08/18 10:15 Sputum - Endotrachea Suction/Ventilator Sputum Culture - Final Enterobacter Cloacae 10/07/18 18:03 Urine - Urine Hinkle Urine Culture - Final Yeast Like Organism Problem List - Problems (1) Abnormal liver function tests Assessment/Plan: -improving -AST 49, ALT 148, Alk Phos 206 -GI on board Code(s): R94.5 - ABNORMAL RESULTS OF LIVER FUNCTION STUDIES (2) Chronic respiratory failure Assessment/Plan: -pulm on board -mechanically ventilated -keep SpO2 >90% Code(s): J96.10 - CHRONIC RESPIRATORY FAILURE, UNSP W HYPOXIA OR HYPERCAPNIA (3) Pneumonia Assessment/Plan: -ID on board -no leukocytosis -low grade fevers -Cefepime -tylenol for temp >100F -CXR shows left dense base -urine legionella neg Code(s): J18.9 - PNEUMONIA, UNSPECIFIED ORGANISM (4) Sepsis Assessment/Plan: -ID on board -no leukocytosis -low grade fevers -Cefepime -tylenol for temp >100F -LA 0.9 -pleural fluid cultures neg -sputum culture positive Code(s): A41.9 - SEPSIS, UNSPECIFIED ORGANISM Qualifiers: Sepsis type: sepsis due to unspecified organism Qualified Code(s): A41.9 - Sepsis, unspecified organism (5) Subdural hematoma Assessment/Plan: -Head CT scan reviewed Code(s): S06.5X9A - TRAUM SUBDR HEM W LOC OF UNSP DURATION, INIT (6) TBI (traumatic brain injury) Code(s): S06.9X9A - UNSP INTRACRANIAL INJURY W LOC OF UNSP DURATION, INIT (7) Pleural effusion Assessment/Plan: -Pulm on board -Chest tube in place--serosanguinous output -keep SpO2 >90% -CT scan initially show large left pleural effusion Code(s): J90 - PLEURAL EFFUSION, NOT ELSEWHERE CLASSIFIED Assessment/Plan see progress notes dvt ppx
--- NOTE | 2018-10-14 10:38 | PN ---
Progress Note (short form) - Note Progress Note: PULMONARY Vented, poorly responsive. Pigtail inserted yesterday, draining serosanguinous effusion VSS/Low grade temp Gen: vented, poorly responsive Heart: RRR Lung: scattered rhonchi Abd: soft, nontender Ext: + edema ASSESSMENT AND PLAN: Suspected Pneumonia Bilateral Pleural Effusions Severe Sepsis Elevated LFTs likely ischemic injury Coagulopathy Volume Overload Traumatic Brain Injury Chronic Respiratory Failure s/p Tracheostomy - continue antibiotics - Monitor left pigtail outcome - Follow Pleural fluid analysis - continue volume assist control - enteral feeds - DVT/GI prophylaxis - Vent floor to continue ELINOR SHAY
[2018-10-14] MEDS: ACETAMINOPHEN 325 MG TABLET (FP) PO PRN (13:16)
--- NOTE | 2018-10-14 13:45 | PN ---
Progress Note (short form) - Note Progress Note: unresponsive-opens eyes spontaneously trach to vent low grade fevers noted chest tube placed - fluid is serosanguinous- Vital Signs Period Temp Pulse Resp BP Sys/Mcguire Pulse Ox Last 24 Hr 98.1 F-100.7 F 70-89 13-18 92-111/61-72 98-99 cor-rrr llungs decreased bs at bases abd soft,nt ext +edema a/p FUO with TBI- probable pneumonia with effusions-s/p chest tube placement-fluid not c/w infection cefepime day #3 history of parkinsons s/p arrest abnl lfts- trending down albumin is 1.3 overall prognosis is grim- continue antibioitics through the weekend Problem List - Problems (1) Sepsis Code(s): A41.9 - SEPSIS, UNSPECIFIED ORGANISM Qualifiers: Sepsis type: sepsis due to unspecified organism Qualified Code(s): A41.9 - Sepsis, unspecified organism (2) Pneumonia Code(s): J18.9 - PNEUMONIA, UNSPECIFIED ORGANISM (3) Chronic respiratory failure Code(s): J96.10 - CHRONIC RESPIRATORY FAILURE, UNSP W HYPOXIA OR HYPERCAPNIA (4) TBI (traumatic brain injury) Code(s): S06.9X9A - UNSP INTRACRANIAL INJURY W LOC OF UNSP DURATION, INIT
[2018-10-14 15:12] VITALS: BMI 27.2
[2018-10-14] MEDS: SODIUM CHLORIDE 1,000 ML IV SCH (18:39)
--- NOTE | 2018-10-14 19:33 | PN.GI ---
GI Progress Note Subjective: Unresponsive low grade temps Chest tube placed On vent - Objective Vital Signs: Vital Signs Temperature 99.4 F 10/14/18 14:35 Pulse Rate 70 10/14/18 14:35 Respiratory Rate 13 10/14/18 18:15 Blood Pressure 103/63 10/14/18 14:35 O2 Sat by Pulse Oximetry (%) 98 10/14/18 10:25 Constitutional: Calm Eyes: No: Sclera Icterus Cardiovascular: Yes: Regular Rate and Rhythm Respiratory: Yes: Diminished (at bases bilaterally) Gastrointestinal Inspection: No: Distention ...Auscultate: Yes: Normoactive Bowel Sounds ...Palpate: Yes: Soft. No: Tenderness (No grimacing upon palpation) Edema: No (No LE edema) Neurological: Yes: Unresponsive Labs: CBC, BMP 10/13/18 05:15 10/13/18 05:15 INR, PTT INR 1.56 (0.83-1.09) H 10/12/18 05:15 Problem List - Problems (1) Abnormal liver function tests Assessment/Plan: Ordered repeat Abd US Monitor LFTs Consider palliative care consult Code(s): R94.5 - ABNORMAL RESULTS OF LIVER FUNCTION STUDIES
[2018-10-15] MEDS: ACETAMINOPHEN 325 MG TABLET (FP) PO PRN (01:36)
[2018-10-15] MEDS: CEFEPIME 2 GM in DEXTROSE 5%-WATER 100 ML IVPB SCH ×3 (01:36→18:01)
[2018-10-15] MEDS: SODIUM CHLORIDE 1,000 ML IV SCH (03:22)
[2018-10-15] MEDS: INSULIN SLIDING SCALE (NOVOLOG) 1 VIAL SQ SCH ×4 (06:00→22:21)
[2018-10-15 07:53] LABS: HEMATOCRIT 24.6 % (35.4-49); HEMOGLOBIN 8.1 GM/dL (11.7-16.9); MCHC 32.7 g/dl (32.0-35.9); MEAN CELL VOLUME 88.5 fl (80-96); RBC 2.78 M/mm3 (4.00-5.60); RDW 14.8 % (11.9-15.9); WHITE BLOOD COUNT 5.3 K/mm3 (4.0-10.0)
[2018-10-15 08:31] LABS: ALBUMIN 1.3 g/dl (3.4-5.0); BILIRUBIN,TOTAL 0.4 mg/dL (0.2-1); BLOOD UREA NITROGEN 13.2 mg/dL (7-18); CALCIUM 7.1 mg/dL (8.5-10.1); CREATININE 0.2 mg/dL (0.55-1.3); POTASSIUM 4.1 mmol/L (3.5-5.1); TOT PROT 4.3 g/dl (6.4-8.2)
[2018-10-15] MEDS: FINASTERIDE 5 MG TABLET (FP) NR SCH (09:22)
[2018-10-15] MEDS: RANITIDINE HCL 150 MG/10 ML UNIT-DOSE GT SCH ×2 (09:22→22:22)
[2018-10-15] MEDS: HEPARIN NA (PORCINE) 5,000 UNITS/ML 1ML VIAL SQ SCH ×2 (09:22→22:21)
[2018-10-15] MEDS: MIDODRINE HCL 5 MG TABLET PO SCH ×3 (09:23→18:02)
[2018-10-15] MEDS ORDERED: PT OWN MED DRAWER 7, Y5N ONE ×2 (09:26→17:59)
[2018-10-15] MEDS: AMANTADINE HCL 100 MG TABLET PO SCH ×2 (09:29→22:21)
[2018-10-15 09:32] LABS: PLATELET COUNT 241 K/MM3 (134-434)
--- NOTE | 2018-10-15 11:35 | PN ---
Progress Note (short form) - Note Progress Note: PULMONARY Vented, poorly responsive. Pigtail inserted minimal drainage serosanguinous 101.6 tmax bp 109/68 hr 88 Gen: vented, poorly responsive Heart: RRR Lung: scattered rhonchi Abd: soft, nontender Ext: + edema CXR ordered ASSESSMENT AND PLAN: Suspected Pneumonia Bilateral Pleural Effusions Severe Sepsis Elevated LFTs likely ischemic injury Coagulopathy Volume Overload Traumatic Brain Injury Chronic Respiratory Failure s/p Tracheostomy - continue antibiotics - Monitor left pigtail output - Follow Pleural fluid analysis - continue volume assist control - enteral feeds - DVT/GI prophylaxis - check CXR Surya PRAKASH MD
--- NOTE | 2018-10-15 15:22 | PN ---
Progress Note, Physician Chief Complaint: Sepsis Pleural effusion History of Present Illness: awake, non-verbal, lethargic mechanically ventilated Chest tube with serosanguinous output CXR today progressive fluid in left hemithorax - Current Medication List Current Medications: Active Medications Acetaminophen (Tylenol -) 650 mg PO Q6H PRN PRN Reason: FEVER Last Admin: 10/15/18 01:36 Dose: 650 mg Amantadine HCl (Symmetrel -) 100 mg PO BID [facility] Last Admin: 10/15/18 09:29 Dose: 100 mg Finasteride (Proscar -) 5 mg NR DAILY [facility] Last Admin: 10/15/18 09:22 Dose: 5 mg Heparin Sodium (Porcine) (Heparin -) 5,000 unit SQ BID [facility] Last Admin: 10/15/18 09:22 Dose: 5,000 unit Cefepime HCl 2 gm/ Dextrose 100 mls @ 200 mls/hr IVPB Q8H-IV [facility]; Protocol Last Admin: 10/15/18 09:23 Dose: 200 mls/hr Insulin Aspart (Novolog Vial Sliding Scale -) 1 vial SQ ACHS [facility]; Protocol Last Admin: 10/15/18 12:52 Dose: Not Given Midodrine (Proamatine -) 5 mg PO TID-MID [facility] Last Admin: 10/15/18 09:23 Dose: 5 mg Ranitidine HCl (Zantac Oral Solution -) 150 mg GT BID [facility] Last Admin: 10/15/18 09:22 Dose: 150 mg - Objective Vital Signs: Vital Signs Temperature 100.7 F H 10/15/18 13:45 Pulse Rate 76 10/15/18 13:45 Respiratory Rate 15 10/15/18 12:34 Blood Pressure 133/98 10/15/18 13:45 O2 Sat by Pulse Oximetry (%) 98 10/14/18 21:00 Constitutional: Yes: Well Nourished, No Distress, Calm Cardiovascular: Yes: Regular Rate and Rhythm Respiratory: Yes: Mechanically Ventilated, Rhonchi (diffuce) Gastrointestinal: Yes: Normal Bowel Sounds, Soft Genitourinary: Yes: Hinkle Present Musculoskeletal: Yes: Muscle Weakness Extremities: Yes: Other (generalized atrophy) Edema: Yes (generalized) Peripheral Pulses WNL: Yes Neurological: Yes: Alert, Pre-Existing Deficit Labs: CBC, BMP 10/15/18 06:40 10/15/18 06:40 INR, PTT INR 1.56 (0.83-1.09) H 10/12/18 05:15 Assessment/Plan (1) Abnormal liver function tests Assessment/Plan: -steady -U/S abd shows mild hepatomegaly with fatty infiltration vs hepatocellular disease -GI on board Code(s): R94.5 - ABNORMAL RESULTS OF LIVER FUNCTION STUDIES (2) Chronic respiratory failure Assessment/Plan: -pulm on board -mechanically ventilated -keep SpO2 >90% Code(s): J96.10 - CHRONIC RESPIRATORY FAILURE, UNSP W HYPOXIA OR HYPERCAPNIA (3) Pneumonia Assessment/Plan: -ID on board -no leukocytosis -low grade fevers -Cefepime -tylenol for temp >100F -CXR shows left dense base -urine legionella neg Code(s): J18.9 - PNEUMONIA, UNSPECIFIED ORGANISM (4) Sepsis Assessment/Plan: -ID on board -no leukocytosis -low grade fevers -Cefepime -tylenol for temp >100F -LA normal -pleural fluid cultures neg -sputum culture positive Code(s): A41.9 - SEPSIS, UNSPECIFIED ORGANISM Qualifiers: Sepsis type: sepsis due to unspecified organism Qualified Code(s): A41.9 - Sepsis, unspecified organism (5) Subdural hematoma Assessment/Plan: -Head CT scan reviewed Code(s): S06.5X9A - TRAUM SUBDR HEM W LOC OF UNSP DURATION, INIT (6) TBI (traumatic brain injury) Code(s): S06.9X9A - UNSP INTRACRANIAL INJURY W LOC OF UNSP DURATION, INIT (7) Pleural effusion Assessment/Plan: -Pulm on board -Chest tube in place--serosanguinous output -keep SpO2 >90% -CT scan initially show large left pleural effusion -D/C IVF Code(s): J90 - PLEURAL EFFUSION, NOT ELSEWHERE CLASSIFIED
[2018-10-15] MEDS: AMINO ACIDS/PROTEIN HYDROLYS 30 ML LIQUID.PKT PO SCH (18:02)
[2018-10-16] MEDS: CEFEPIME 2 GM in DEXTROSE 5%-WATER 100 ML IVPB SCH ×3 (01:22→17:51)
[2018-10-16] MEDS ORDERED: INSULIN (NOVOLOG) ASPART 100 UNITS/ML 10ML VIAL ONE (06:56)
[2018-10-16] MEDS: INSULIN SLIDING SCALE (NOVOLOG) 1 VIAL SQ SCH ×2 (06:57→15:22)
[2018-10-16] MEDS: RANITIDINE HCL 150 MG/10 ML UNIT-DOSE GT SCH ×2 (09:17→22:09)
[2018-10-16] MEDS: FINASTERIDE 5 MG TABLET (FP) NR SCH (09:17)
[2018-10-16] MEDS: AMINO ACIDS/PROTEIN HYDROLYS 30 ML LIQUID.PKT PO SCH ×2 (09:17→17:50)
[2018-10-16] MEDS: HEPARIN NA (PORCINE) 5,000 UNITS/ML 1ML VIAL SQ SCH ×2 (09:17→22:08)
[2018-10-16] MEDS: MIDODRINE HCL 5 MG TABLET PO SCH ×3 (09:18→17:50)
--- NOTE | 2018-10-16 09:28 | PN ---
Progress Note (short form) - Note Progress Note: PULMONARY Vented, poorly responsive. Pigtail inserted minimal drainage serosanguinous Opens eyes 99.8 tmax Gen: vented, poorly responsive Heart: RRR Lung: scattered rhonchi Abd: soft, nontender Ext: + edema CXR noted ASSESSMENT AND PLAN: Pneumonia Bilateral Pleural Effusions/Pig tail w continued minimal drainage/no growth on cultures of pleural fluid Sepsis Elevated LFTs likely ischemic injury Coagulopathy Volume Overload Traumatic Brain Injury Chronic Respiratory Failure s/p Tracheostomy - continue antibiotics - Monitor left pigtail output - continue volume assist control - enteral feeds - DVT/GI prophylaxis - Family to discuss goals of care tomorrow Surya PRAKASH MD
[2018-10-16] MEDS: AMANTADINE HCL 100 MG TABLET PO SCH ×2 (09:30→22:09)
--- NOTE | 2018-10-16 11:27 | PN ---
Progress Note, Physician Chief Complaint: Sepsis Pleural effusion History of Present Illness: awake, non-verbal, lethargic mechanically ventilated Chest tube with serosanguinous output - Current Medication List Current Medications: Active Medications Acetaminophen (Tylenol -) 650 mg PO Q6H PRN PRN Reason: FEVER Last Admin: 10/15/18 01:36 Dose: 650 mg Amantadine HCl (Symmetrel -) 100 mg PO BID [facility] Last Admin: 10/15/18 22:21 Dose: 100 mg Amino Acids (Prosource No Carb Liquid Pkt) 30 ml PO BID@0800,1730 [facility] Last Admin: 10/16/18 09:17 Dose: 30 ml Finasteride (Proscar -) 5 mg NR DAILY [facility] Last Admin: 10/16/18 09:17 Dose: 5 mg Heparin Sodium (Porcine) (Heparin -) 5,000 unit SQ BID [facility] Last Admin: 10/16/18 09:17 Dose: 5,000 unit Cefepime HCl 2 gm/ Dextrose 100 mls @ 200 mls/hr IVPB Q8H-IV [facility]; Protocol Last Admin: 10/16/18 09:17 Dose: 200 mls/hr Insulin Aspart (Novolog Vial Sliding Scale -) 1 vial SQ ACHS [facility]; Protocol Last Admin: 10/16/18 06:57 Dose: Not Given Midodrine (Proamatine -) 5 mg PO TID-MID [facility] Last Admin: 10/16/18 09:18 Dose: 5 mg Ranitidine HCl (Zantac Oral Solution -) 150 mg GT BID [facility] Last Admin: 10/16/18 09:17 Dose: 150 mg - Objective Vital Signs: Vital Signs Temperature 100.7 F H 10/16/18 09:00 Pulse Rate 72 10/16/18 09:00 Respiratory Rate 18 10/16/18 09:00 Blood Pressure 113/65 10/16/18 09:00 O2 Sat by Pulse Oximetry (%) 97 10/16/18 08:39 Constitutional: Yes: Well Nourished, No Distress, Calm Cardiovascular: Yes: Regular Rate and Rhythm Respiratory: Yes: Mechanically Ventilated, Rhonchi Gastrointestinal: Yes: Normal Bowel Sounds, Soft Musculoskeletal: Yes: Other (generalized atrophy) Edema: Yes (generalized) Peripheral Pulses WNL: Yes Neurological: Yes: Pre-Existing Deficit Labs: CBC, BMP 10/15/18 06:40 10/15/18 06:40 INR, PTT INR 1.56 (0.83-1.09) H 10/12/18 05:15 Assessment/Plan (1) Abnormal liver function tests Assessment/Plan: -steady -U/S abd 10/08/18-shows mild hepatomegaly with fatty infiltration vs hepatocellular disease -GI on board Code(s): R94.5 - ABNORMAL RESULTS OF LIVER FUNCTION STUDIES (2) Chronic respiratory failure Assessment/Plan: -pulm on board -mechanically ventilated -keep SpO2 >90% Code(s): J96.10 - CHRONIC RESPIRATORY FAILURE, UNSP W HYPOXIA OR HYPERCAPNIA (3) Pneumonia Assessment/Plan: -ID on board -no leukocytosis -low grade fevers -Cefepime -tylenol for temp >100F -CXR shows left dense base -urine legionella neg Code(s): J18.9 - PNEUMONIA, UNSPECIFIED ORGANISM (4) Sepsis Assessment/Plan: -ID on board -no leukocytosis -low grade fevers -Cefepime -tylenol for temp >100F -LA normal -pleural fluid cultures neg -sputum culture positive Code(s): A41.9 - SEPSIS, UNSPECIFIED ORGANISM Qualifiers: Sepsis type: sepsis due to unspecified organism Qualified Code(s): A41.9 - Sepsis, unspecified organism (5) Subdural hematoma Assessment/Plan: -Head CT scan reviewed Code(s): S06.5X9A - TRAUM SUBDR HEM W LOC OF UNSP DURATION, INIT (6) TBI (traumatic brain injury) Code(s): S06.9X9A - UNSP INTRACRANIAL INJURY W LOC OF UNSP DURATION, INIT (7) Pleural effusion Assessment/Plan: -Pulm on board -Chest tube in place--serosanguinous output -keep SpO2 >90% -CT scan initially show large left pleural effusion Code(s): J90 - PLEURAL EFFUSION, NOT ELSEWHERE CLASSIFIED PALLIATIVE CARE TO SEE THE PATIENT AND DISCUSS GOALS OF CARE WITH FAMILY. FAMILY WISHES TO OPT FOR PALLIATIVE/HOSPICE/COMPASSIONATE WEANING
[2018-10-16] MEDS ORDERED: PT OWN MED DRAWER 7, Y5N ONE ×2 (17:49→20:01)
[2018-10-17] MEDS: CEFEPIME 2 GM in DEXTROSE 5%-WATER 100 ML IVPB SCH ×3 (01:23→17:49)
[2018-10-17] MEDS ORDERED: PT OWN MED DRAWER 7, Y5N ONE ×2 (08:45→15:15)
[2018-10-17] MEDS: AMINO ACIDS/PROTEIN HYDROLYS 30 ML LIQUID.PKT PO SCH ×2 (08:52→17:51)
[2018-10-17] MEDS: FINASTERIDE 5 MG TABLET (FP) NR SCH (09:03)
[2018-10-17] MEDS: MIDODRINE HCL 5 MG TABLET PO SCH ×3 (09:03→18:39)
[2018-10-17] MEDS: HEPARIN NA (PORCINE) 5,000 UNITS/ML 1ML VIAL SQ SCH ×2 (09:03→21:26)
[2018-10-17] MEDS: RANITIDINE HCL 150 MG/10 ML UNIT-DOSE GT SCH ×2 (09:05→21:26)
[2018-10-17] MEDS: AMANTADINE HCL 100 MG TABLET PO SCH ×2 (09:05→21:27)
--- NOTE | 2018-10-17 12:16 | PN ---
Progress Note (short form) - Note Progress Note: Patient seen and examined Vital Signs Temp 99 F 10/17/18 08:45 Pulse 71 10/17/18 10:14 Resp 16 10/17/18 10:14 BP 102/72 10/17/18 08:45 Pulse Ox 97 10/17/18 10:14 Sleeping comfortably, receiving TF Abdomen soft NT ND Hepatic Panel Total Bilirubin 0.4 mg/dL (0.2-1) 10/15/18 06:40 Direct Bilirubin 0.5 mg/dL (0.0-0.2) H 10/12/18 05:15 AST 68 U/L (15-37) H 10/15/18 06:40 ALT 145 U/L (13-61) H 10/15/18 06:40 Alkaline Phosphatase 198 U/L (45-117) H 10/15/18 06:40 Albumin 1.3 g/dl (3.4-5.0) L 10/15/18 06:40 LFTs stable US with interval development of gallbladder wall thickening and possible pericholecystic fluid, possible acalculous cholecystitis Given persistent low grade temps and US finding, would suggest surgical evaluation and ID follow up regarding consideration of percutaneous cholecystostomy LFTs likely cholestasis of sepsis vs passive congestion, continue to trend
--- NOTE | 2018-10-17 12:33 | PN ---
Progress Note (short form) - Note Progress Note: Remains vented and poorly responsive. No acute events overnight. OBJECTIVE: Intake & Output 10/14/18 10/15/18 10/16/18 10/17/18 23:59 23:59 23:59 23:59 Intake Total 1651 1570 1000 900 Output Total 322 224 6002 Balance 661 620 -200 900 Last Vital Signs Temp Pulse Resp BP Pulse Ox 99 F 71 16 102/72 97 10/17/18 08:45 10/17/18 10:14 10/17/18 10:14 10/17/18 08:45 10/17/18 10:14 Active Medications Acetaminophen (Tylenol -) 650 mg PO Q6H PRN PRN Reason: FEVER Last Admin: 10/15/18 01:36 Dose: 650 mg Amantadine HCl (Symmetrel -) 100 mg PO BID [facility] Last Admin: 10/17/18 09:05 Dose: 100 mg Amino Acids (Prosource No Carb Liquid Pkt) 30 ml PO BID@0800,1730 [facility] Last Admin: 10/17/18 08:52 Dose: 30 ml Finasteride (Proscar -) 5 mg NR DAILY [facility] Last Admin: 10/17/18 09:03 Dose: 5 mg Heparin Sodium (Porcine) (Heparin -) 5,000 unit SQ BID [facility] Last Admin: 10/17/18 09:03 Dose: 5,000 unit Cefepime HCl 2 gm/ Dextrose 100 mls @ 200 mls/hr IVPB Q8H-IV [facility]; Protocol Last Admin: 10/17/18 09:04 Dose: 200 mls/hr Midodrine (Proamatine -) 5 mg PO TID-MID [facility] Last Admin: 10/17/18 09:03 Dose: 5 mg Ranitidine HCl (Zantac Oral Solution -) 150 mg GT BID [facility] Last Admin: 10/17/18 09:05 Dose: 150 mg Gen: vented, poorly responsive Heart: RRR Lung: scattered rhonchi Abd: soft, nontender Ext: + edema Laboratory Results - last 24 hr 10/11/18 10/12/18 13:01 14:20 Vitamin K1 0.15 Fluid Osmolality 260 ASSESSMENT AND PLAN: Suspected Pneumonia Bilateral Pleural Effusions Severe Sepsis Elevated LFTs likely ischemic injury Coagulopathy Volume Overload Traumatic Brain Injury Chronic Respiratory Failure s/p Tracheostomy - Antibiotics per ID - continue volume assist control - enteral feeds - DVT/GI prophylaxis - Family meeting for further GOC Dr Jones
--- NOTE | 2018-10-17 13:25 | PN ---
Progress Note, Physician Chief Complaint: Sepsis Pleural Effusion History of Present Illness: Previous notes and events reviewed awake, non-verbal, lethargic mechanically ventilated Chest tube with serosanguinous output over weekend noted to have fever spikes family meeting occured today with KRISTY Persaud and patient's 2 sons to discuss goals of care, patient made DNR status, family wishes for neurology evaluation to determine if there is a chance for him to regain some neuro function, after neurology assessment will then discuss option for palliative care - Current Medication List Current Medications: Active Medications Acetaminophen (Tylenol -) 650 mg PO Q6H PRN PRN Reason: FEVER Last Admin: 10/15/18 01:36 Dose: 650 mg Amantadine HCl (Symmetrel -) 100 mg PO BID [facility] Last Admin: 10/17/18 09:05 Dose: 100 mg Amino Acids (Prosource No Carb Liquid Pkt) 30 ml PO BID@0800,1730 [facility] Last Admin: 10/17/18 08:52 Dose: 30 ml Finasteride (Proscar -) 5 mg NR DAILY [facility] Last Admin: 10/17/18 09:03 Dose: 5 mg Heparin Sodium (Porcine) (Heparin -) 5,000 unit SQ BID [facility] Last Admin: 10/17/18 09:03 Dose: 5,000 unit Cefepime HCl 2 gm/ Dextrose 100 mls @ 200 mls/hr IVPB Q8H-IV [facility]; Protocol Last Admin: 10/17/18 09:04 Dose: 200 mls/hr Midodrine (Proamatine -) 5 mg PO TID-MID [facility] Last Admin: 10/17/18 09:03 Dose: 5 mg Ranitidine HCl (Zantac Oral Solution -) 150 mg GT BID [facility] Last Admin: 10/17/18 09:05 Dose: 150 mg - Objective Vital Signs: Vital Signs Temperature 99 F 10/17/18 08:45 Pulse Rate 71 10/17/18 10:14 Respiratory Rate 16 10/17/18 10:14 Blood Pressure 102/72 10/17/18 08:45 O2 Sat by Pulse Oximetry (%) 97 10/17/18 10:14 Constitutional: Yes: No Distress, Other (lethargic) HENT: Yes: Atraumatic Neck: Yes: Other (trach) Cardiovascular: Yes: Regular Rate and Rhythm Respiratory: Yes: Regular, Mechanically Ventilated, Rhonchi Gastrointestinal: Yes: Normal Bowel Sounds, Soft, Other (Gtube) Genitourinary: Yes: Hinkle Present Musculoskeletal: Yes: Muscle Weakness Extremities: Yes: WNL Edema: Yes (LUE, B/L lower extremity) Edema: LUE: 2+, LLE: 1+, RLE: 1+ Neurological: Yes: Alert, Lethargy, Pre-Existing Deficit Labs: CBC, BMP 10/15/18 06:40 10/15/18 06:40 INR, PTT INR 1.56 (0.83-1.09) H 10/12/18 05:15 Microbiology 10/12/18 14:20 Pleural Fluid Gram Stain - Final 10/12/18 14:20 Pleural Fluid Body Fluid Culture - Final NO GROWTH OF AEROBIC ORGANISMS AFTER 48 HOURS INCUBATION 10/12/18 14:20 Pleural Fluid Anaerobic Culture - Final NO ANAEROBES WERE ISOLATED 10/07/18 18:03 Blood - Peripheral Venous Blood Culture - Final NO GROWTH AFTER 5 DAYS INCUBATION 10/07/18 18:03 Blood - Peripheral Venous Blood Culture - Final NO GROWTH AFTER 5 DAYS INCUBATION 10/10/18 19:02 Urine For Antigen Detection Legionella Antigen - Final 10/10/18 19:02 Urine For Antigen Detection Streptococcus pneumoniae Antigen (M - Final 10/08/18 10:15 Sputum - Endotrachea Suction/Ventilator Gram Stain - Final 10/08/18 10:15 Sputum - Endotrachea Suction/Ventilator Sputum Culture - Final Enterobacter Cloacae 10/07/18 18:03 Urine - Urine Hinkle Urine Culture - Final Yeast Like Organism Problem List - Problems (1) Abnormal liver function tests Assessment/Plan: -improving -GI on board--recommend surgical eval for poss percutaneous cholecystostomy Code(s): R94.5 - ABNORMAL RESULTS OF LIVER FUNCTION STUDIES (2) Chronic respiratory failure Assessment/Plan: -pulm on board -mechanically ventilated -keep SpO2 >90% Code(s): J96.10 - CHRONIC RESPIRATORY FAILURE, UNSP W HYPOXIA OR HYPERCAPNIA (3) Pneumonia Assessment/Plan: -ID on board -no leukocytosis -low grade fevers -Cefepime -tylenol for temp >100F -CXR shows left dense base -urine legionella neg Code(s): J18.9 - PNEUMONIA, UNSPECIFIED ORGANISM (4) Sepsis Assessment/Plan: -ID on board -no leukocytosis -low grade fevers -Cefepime -tylenol for temp >100F -LA 0.9 -pleural fluid cultures neg -sputum culture positive Code(s): A41.9 - SEPSIS, UNSPECIFIED ORGANISM Qualifiers: Sepsis type: sepsis due to unspecified organism Qualified Code(s): A41.9 - Sepsis, unspecified organism (5) Subdural hematoma Assessment/Plan: -Head CT scan reviewed -neurology consult Code(s): S06.5X9A - TRAUM SUBDR HEM W LOC OF UNSP DURATION, INIT (6) TBI (traumatic brain injury) Assessment/Plan: -neurology consult Code(s): S06.9X9A - UNSP INTRACRANIAL INJURY W LOC OF UNSP DURATION, INIT (7) Pleural effusion Assessment/Plan: -Pulm on board -Chest tube in place--serosanguinous output -keep SpO2 >90% -CT scan initially show large left pleural effusion Code(s): J90 - PLEURAL EFFUSION, NOT ELSEWHERE CLASSIFIED Assessment/Plan see progress notes dvt ppx
--- NOTE | 2018-10-17 14:49 | PN ---
Progress Note (short form) - Note Progress Note: unresponsive-opens eyes spontaneously trach to vent low grade temps over the weekend now resolved family conference noted Vital Signs Period Temp Pulse Resp BP Sys/Mcguire Pulse Ox Last 24 Hr 97.7 F-99 F 70-76 10-18 102-134/70-83 97-98 cor-rrr llungs decreased bs at bases abd soft,nt +GT ext +edema CBC, BMP 10/15/18 06:40 10/15/18 06:40 Microbiology 10/12/18 14:20 Pleural Fluid Gram Stain - Final 10/12/18 14:20 Pleural Fluid Body Fluid Culture - Final NO GROWTH OF AEROBIC ORGANISMS AFTER 48 HOURS INCUBATION 10/12/18 14:20 Pleural Fluid Anaerobic Culture - Final NO ANAEROBES WERE ISOLATED 10/07/18 18:03 Blood - Peripheral Venous Blood Culture - Final NO GROWTH AFTER 5 DAYS INCUBATION 10/07/18 18:03 Blood - Peripheral Venous Blood Culture - Final NO GROWTH AFTER 5 DAYS INCUBATION 10/10/18 19:02 Urine For Antigen Detection Legionella Antigen - Final 10/10/18 19:02 Urine For Antigen Detection Streptococcus pneumoniae Antigen (M - Final 10/08/18 10:15 Sputum - Endotrachea Suction/Ventilator Gram Stain - Final 10/08/18 10:15 Sputum - Endotrachea Suction/Ventilator Sputum Culture - Final Enterobacter Cloacae 10/07/18 18:03 Urine - Urine Hinkle Urine Culture - Final Yeast Like Organism a/p FUO with TBI- probable pneumonia with effusions-s/p chest tube placement-fluid not c/w infection cefepime day #6 history of parkinsons s/p arrest abnl lfts- stable, normal wbc, sonogram noted, surgery eval pending albumin is 1.3 overall prognosis is poor continue antibiotics another 24 hours Problem List - Problems (1) Sepsis Code(s): A41.9 - SEPSIS, UNSPECIFIED ORGANISM Qualifiers: Sepsis type: sepsis due to unspecified organism Qualified Code(s): A41.9 - Sepsis, unspecified organism (2) Pneumonia Code(s): J18.9 - PNEUMONIA, UNSPECIFIED ORGANISM (3) Chronic respiratory failure Code(s): J96.10 - CHRONIC RESPIRATORY FAILURE, UNSP W HYPOXIA OR HYPERCAPNIA (4) TBI (traumatic brain injury) Code(s): S06.9X9A - UNSP INTRACRANIAL INJURY W LOC OF UNSP DURATION, INIT
--- NOTE | 2018-10-17 16:11 | PATH ---
Cytology Non-Gynecological Report Patient Name: ANA ADORNO Med. Rec. #: [id number] /Age/Gender: 1940 (Age: 77) / M Account: [id number] Location: [address] [place] [address] Taken: 10/14/2018 Received: 10/14/2018 Reported: 10/17/2018 Physicians: Elton Oneal M.D. Specimen(s) Received PLEURAL FLUID Clinical History Pleural effusion Final Diagnosis PLEURAL FLUID, THORACENTESIS: SATISFACTORY FOR EVALUATION NO MALIGNANT CELLS IDENTIFIED. MESOTHELIAL CELLS AND MACROPHAGES PRESENT. Electronically Signed Lex Chin M.D. Gross Description Approximately 50cc of yellow fluid received fixed in 50% alcohol. One slide and one cellblock prepared.
--- NOTE | 2018-10-17 19:51 | CONSULT ---
Consult Consult Specialty:: Surgery Referred by:: Kimmy Conde Reason for Consultation:: Acalculus cholecystitis. - History Source History Provided By: Medical Record Limitations to Obtaining History: Unresponsive - Past Medical History WRAP TURNER: Yes: Parkinson's, Other (SAH/SDH, c4 spinous fracture) Cardio/Vascular: Yes: Other (cardiac arrest) Pulmonary: Yes: Pneumonia, Previously Intubated (now with trach) - Past Surgical History Past Surgical History: Yes: Cataract Removal, Permanent Pacemaker Additional Surgical History: tracheostomy, PEG, knee surgery, ? 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 History of Recent Travel: No Home Medications - Allergies Allergies/Adverse Reactions: Allergies Allergy/AdvReac Type Severity Reaction Status Date / Time No Known Allergies Allergy Verified 10/07/18 17:43 - Home Medications Home Medications: Ambulatory Orders Acetaminophen [Tylenol] 650 mg GT Q8H 10/07/18 Amantadine HCl [Amantadine] 100 mg GT BID 10/07/18 Famotidine [Pepcid -] 20 mg GT BID 10/07/18 Finasteride 5 mg GT DAILY 10/07/18 Heparin - 5,000 unit SQ TID 10/07/18 levoFLOXacin 750 MG IVPB [Levaquin 750 mg Premixed Ivpb -] 750 mg IVPB DAILY Physical Exam Vital Signs: Vital Signs Temperature 99.8 F H 10/17/18 17:51 Pulse Rate 74 10/17/18 17:51 Respiratory Rate 17 10/17/18 18:10 Blood Pressure 109/55 L 10/17/18 17:51 O2 Sat by Pulse Oximetry (%) 97 10/17/18 14:59 Constitutional: Yes: Other Respiratory: Yes: Mechanically Ventilated Gastrointestinal: Yes: Soft Edema: LUE: 2+, RUE: 2+, LLE: 2+, RLE: 2+ Neurological: Yes: Unresponsive Labs: CBC, BMP 10/15/18 06:40 10/15/18 06:40 Imaging - Results Ultrasound: Report Reviewed (Pericholecystic fluid , thickened gallbladder wall) Problem List - Problems (1) Acalculous cholecystitis Code(s): K81.9 - CHOLECYSTITIS, UNSPECIFIED (2) Pleural effusion Code(s): J90 - PLEURAL EFFUSION, NOT ELSEWHERE CLASSIFIED (3) Subdural hematoma Code(s): S06.5X9A - TRAUM SUBDR HEM W LOC OF UNSP DURATION, INIT (4) TBI (traumatic brain injury) Code(s): S06.9X9A - UNSP INTRACRANIAL INJURY W LOC OF UNSP DURATION, INIT (5) Chronic respiratory failure Code(s): J96.10 - CHRONIC RESPIRATORY FAILURE, UNSP W HYPOXIA OR HYPERCAPNIA (6) Afib Code(s): I48.91 - UNSPECIFIED ATRIAL FIBRILLATION (7) Abnormal liver function tests Code(s): R94.5 - ABNORMAL RESULTS OF LIVER FUNCTION STUDIES Assessment/Plan Patient has generalised edema, poor candidate for any major bsurgery. Prognosis guarded. Consider percutaneous cholecystectomy by radiology. I have spoken to the patients son , Douglas Lovelace , who does not want to proceed with any procedures
[2018-10-18] MEDS: CEFEPIME 2 GM in DEXTROSE 5%-WATER 100 ML IVPB SCH ×3 (01:20→17:59)
[2018-10-18 06:39] LABS: HEMATOCRIT 24.9 % (35.4-49); HEMOGLOBIN 8.3 GM/dL (11.7-16.9); MCH 29.1 pg (25.7-33.7); MCHC 33.3 g/dl (32.0-35.9); MEAN CELL VOLUME 87.2 fl (80-96); MEAN PLT VOLUME 7.9 fl (7.5-11.1); PLATELET COUNT 205 K/MM3 (134-434); RBC 2.85 M/mm3 (4.00-5.60); RDW 15.2 % (11.9-15.9); WHITE BLOOD COUNT 5.5 K/mm3 (4.0-10.0)
[2018-10-18 06:54] LABS: ALBUMIN 1.3 g/dl (3.4-5.0); BILIRUBIN,DIRECT 0.3 mg/dL (0.0-0.2); BILIRUBIN,TOTAL 0.4 mg/dL (0.2-1); BLOOD UREA NITROGEN 16.8 mg/dL (7-18); CALCIUM 7.2 mg/dL (8.5-10.1); CREATININE 0.3 mg/dL (0.55-1.3); POTASSIUM 3.7 mmol/L (3.5-5.1); TOT PROT 4.4 g/dl (6.4-8.2)
[2018-10-18] MEDS ORDERED: PT OWN MED DRAWER 7, Y5N ONE ×3 (08:15→17:40)
[2018-10-18] MEDS: AMINO ACIDS/PROTEIN HYDROLYS 30 ML LIQUID.PKT PO SCH ×2 (08:28→17:59)
--- NOTE | 2018-10-18 10:07 | CONSULT ---
Consult - text type - Consultation Consultation Note: NEUROLOGY CONSULT GREATLY APPRECIATED: Events reviewed and discussed with RANDY Nichole. Pt examined TITO Mansfield. This 77 yo man with pmhx TBI, SAH, NM, C4 fracture, respiratory failure s/p PEG and vent, BPH, and "Parkinsonism." Meds: amantadine 100 BID, famotidine, finasteride, heparin. Recently discharged from [facility] due to persistent fevers on levofloxacin. ID workup here revealed possible B/L pleural effusions, S/P pleurocentesis, however analysis unremarkable. LFTS remain elevated with U/S revealing possible gallbladder thickening suggestive of cholecystitis. S/P Vanco and Zoysn, but remains on Cefepime. Asked to evaluate patient to determine neurological prognosis. T 100.2 BPs 90s/50s - now on midodrine 5 mg TID UA negative, Blood cultures x 2 neg EKG- Afib with PPM in place Head CT 10/08/18 (reviewed): Moderate, diffuse atrophy with scattered microvascular changes but no CVA identified. CT of C spine C-: Mod DJD. No acute subluxation or fracture. HIRO: Cor irregular. Recent scar at mid-forehead. Right temporal ecchymosis. Trach, PEG, garcia in situ. Neck supple. Diffuse edema to all four extremities. NEURO: Eye opening to sternal rub. Full EOM's to Doll's Eyes with spontaneous roving brandie movements. PER4mm. Minimally responsive to light. +/+ corneals Shallow spontaneous respirations. Areflexic. 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 SUGGEST: Continue support care. Prognosis for functional recovery is extremely guarded. Taper and D/C amantadine (started for flu prophylaxis?) and midodrine when BP's are stabilized Thank you very much, Danilo Loredo MD
[2018-10-18] MEDS: RANITIDINE HCL 150 MG/10 ML UNIT-DOSE GT SCH ×2 (10:23→21:57)
[2018-10-18] MEDS: FINASTERIDE 5 MG TABLET (FP) NR SCH (10:23)
[2018-10-18] MEDS: HEPARIN NA (PORCINE) 5,000 UNITS/ML 1ML VIAL SQ SCH ×2 (10:26→21:57)
[2018-10-18] MEDS: MIDODRINE HCL 5 MG TABLET PO SCH ×3 (10:31→18:01)
[2018-10-18] MEDS: AMANTADINE HCL 100 MG TABLET PO SCH ×2 (10:31→21:57)
--- NOTE | 2018-10-18 11:20 | PN ---
Progress Note (short form) - Note Progress Note: Remains vented and poorly responsive. No acute events overnight. OBJECTIVE: Intake & Output 10/15/18 10/16/18 10/17/18 10/18/18 23:59 23:59 23:59 23:59 Intake Total 1570 1000 2000 1050 Output Total 950 1200 950 450 Balance 620 -200 1050 600 Last Vital Signs Temp Pulse Resp BP Pulse Ox 99.2 F 72 14 158/85 99 10/18/18 06:00 10/18/18 10:39 10/18/18 09:50 10/18/18 06:00 10/18/18 10:39 Active Medications Acetaminophen (Tylenol -) 650 mg PO Q6H PRN PRN Reason: FEVER Last Admin: 10/15/18 01:36 Dose: 650 mg Amantadine HCl (Symmetrel -) 100 mg PO BID [facility] Last Admin: 10/18/18 10:31 Dose: 100 mg Amino Acids (Prosource No Carb Liquid Pkt) 30 ml PO BID@0800,1730 [facility] Last Admin: 10/18/18 08:28 Dose: 30 ml Finasteride (Proscar -) 5 mg NR DAILY [facility] Last Admin: 10/18/18 10:23 Dose: 5 mg Heparin Sodium (Porcine) (Heparin -) 5,000 unit SQ BID [facility] Last Admin: 10/18/18 10:26 Dose: 5,000 unit Cefepime HCl 2 gm/ Dextrose 100 mls @ 200 mls/hr IVPB Q8H-IV [facility]; Protocol Last Admin: 10/18/18 10:23 Dose: 200 mls/hr Midodrine (Proamatine -) 5 mg PO TID-MID [facility] Last Admin: 10/18/18 10:31 Dose: 5 mg Ranitidine HCl (Zantac Oral Solution -) 150 mg GT BID [facility] Last Admin: 10/18/18 10:23 Dose: 150 mg Gen: vented, poorly responsive Heart: RRR Lung: scattered rhonchi Abd: soft, nontender Ext: + edema Laboratory Results - last 24 hr 10/12/18 10/18/18 10/18/18 14:20 06:00 06:00 WBC 5.5 RBC 2.85 L Hgb 8.3 L Hct 24.9 L MCV 87.2 MCH 29.1 MCHC 33.3 RDW 15.2 Plt Count 205 MPV 7.9 Sodium 134 L Potassium 3.7 Chloride 98 Carbon Dioxide 32 Anion Gap 4 L BUN 16.8 Creatinine 0.3 L Est GFR (CKD-EPI)AfAm 149.45 Est GFR (CKD-EPI)NonAf 128.95 Random Glucose 125 H Calcium 7.2 L Total Bilirubin 0.4 Direct Bilirubin 0.3 H AST 140 H ALT 237 H Alkaline Phosphatase 217 H Total Protein 4.4 L Albumin 1.3 L Fluid Osmolality 260 ASSESSMENT AND PLAN: Pneumonia Bilateral Pleural Effusions Severe Sepsis Elevated LFTs likely ischemic injury Coagulopathy Volume Overload Traumatic Brain Injury Chronic Respiratory Failure s/p Tracheostomy Acalculous Cholecystitis - Antibiotics per ID - continue volume assist control - enteral feeds - DVT/GI prophylaxis - Family meeting for further GOC Dr Jones
--- NOTE | 2018-10-18 14:45 | PN ---
Progress Note, Physician Chief Complaint: Sepsis Pleural Effusion History of Present Illness: Previous notes and events reviewed awake, non-verbal mechanically ventilated Chest tube with serosanguinous output noted with eyes open but minimally responsive - Current Medication List Current Medications: Active Medications Acetaminophen (Tylenol -) 650 mg PO Q6H PRN PRN Reason: FEVER Last Admin: 10/15/18 01:36 Dose: 650 mg Amantadine HCl (Symmetrel -) 100 mg PO BID [facility] Last Admin: 10/18/18 10:31 Dose: 100 mg Amino Acids (Prosource No Carb Liquid Pkt) 30 ml PO BID@0800,1730 [facility] Last Admin: 10/18/18 08:28 Dose: 30 ml Finasteride (Proscar -) 5 mg NR DAILY [facility] Last Admin: 10/18/18 10:23 Dose: 5 mg Heparin Sodium (Porcine) (Heparin -) 5,000 unit SQ BID [facility] Last Admin: 10/18/18 10:26 Dose: 5,000 unit Cefepime HCl 2 gm/ Dextrose 100 mls @ 200 mls/hr IVPB Q8H-IV [facility]; Protocol Last Admin: 10/18/18 10:23 Dose: 200 mls/hr Midodrine (Proamatine -) 5 mg PO TID-MID [facility] Last Admin: 10/18/18 10:31 Dose: 5 mg Ranitidine HCl (Zantac Oral Solution -) 150 mg GT BID [facility] Last Admin: 10/18/18 10:23 Dose: 150 mg - Objective Vital Signs: Vital Signs Temperature 99.2 F 10/18/18 06:00 Pulse Rate 72 10/18/18 10:39 Respiratory Rate 16 10/18/18 10:00 Blood Pressure 106/66 10/18/18 10:00 O2 Sat by Pulse Oximetry (%) 99 10/18/18 10:39 Constitutional: Yes: No Distress, Calm Eyes: Yes: Conjunctiva Clear HENT: Yes: Atraumatic Neck: Yes: Other (trach) Cardiovascular: Yes: Regular Rate and Rhythm Respiratory: Yes: Regular, Mechanically Ventilated, Rhonchi Gastrointestinal: Yes: Normal Bowel Sounds, Soft, Other (g tube) Genitourinary: Yes: Hinkle Present Musculoskeletal: Yes: Muscle Weakness Extremities: Yes: WNL Edema: Yes Edema: LUE: 2+, LLE: 2+, RLE: 2+ Peripheral Pulses WNL: No Neurological: Yes: Pre-Existing Deficit Labs: CBC, BMP 10/18/18 06:00 10/18/18 06:00 INR, PTT INR 1.56 (0.83-1.09) H 10/12/18 05:15 Problem List - Problems (1) Abnormal liver function tests Assessment/Plan: -showing uptred -GI on board--recommend surgical eval for poss percutaneous cholecystostomy -surgical consult was placed and recommendations reviewed Code(s): R94.5 - ABNORMAL RESULTS OF LIVER FUNCTION STUDIES (2) Chronic respiratory failure Assessment/Plan: -pulm on board -mechanically ventilated -keep SpO2 >90% Code(s): J96.10 - CHRONIC RESPIRATORY FAILURE, UNSP W HYPOXIA OR HYPERCAPNIA (3) Pneumonia Assessment/Plan: -ID on board -no leukocytosis -low grade fevers -Cefepime -tylenol for temp >100F -CXR shows left dense base -urine legionella neg Code(s): J18.9 - PNEUMONIA, UNSPECIFIED ORGANISM (4) Sepsis Assessment/Plan: -ID on board -no leukocytosis -low grade fevers -Cefepime -tylenol for temp >100F -LA 0.9 -pleural fluid cultures neg -sputum culture positive Code(s): A41.9 - SEPSIS, UNSPECIFIED ORGANISM Qualifiers: Sepsis type: sepsis due to unspecified organism Qualified Code(s): A41.9 - Sepsis, unspecified organism (5) Subdural hematoma Assessment/Plan: -Head CT scan reviewed -neurology consult Code(s): S06.5X9A - TRAUM SUBDR HEM W LOC OF UNSP DURATION, INIT (6) TBI (traumatic brain injury) Assessment/Plan: -neurology consult Code(s): S06.9X9A - UNSP INTRACRANIAL INJURY W LOC OF UNSP DURATION, INIT (7) Pleural effusion Assessment/Plan: -Pulm on board -Chest tube in place--serosanguinous output -keep SpO2 >90% -CT scan initially show large left pleural effusion Code(s): J90 - PLEURAL EFFUSION, NOT ELSEWHERE CLASSIFIED Assessment/Plan see progress notes dvt ppx DNR
--- NOTE | 2018-10-18 18:00 | PN.GI ---
GI Progress Note Subjective: No acute events Reviewed chart: Son declined cholecystostomy tube. There is discussion re: compassionate weaning - Objective Vital Signs: Vital Signs Temperature 99.8 F H 10/18/18 14:00 Pulse Rate 72 10/18/18 14:00 Respiratory Rate 16 10/18/18 14:00 Blood Pressure 114/73 10/18/18 14:00 O2 Sat by Pulse Oximetry (%) 99 10/18/18 10:39 Constitutional: Calm Respiratory: Yes: Diminished (at bases bilaterally) Gastrointestinal Inspection: No: Distention ...Auscultate: Yes: Normoactive Bowel Sounds ...Palpate: Yes: Soft. No: Tenderness (No grimacing upon palpation) ...Percussion: No: Tympanitic Labs: CBC, BMP 10/18/18 06:00 10/18/18 06:00 INR, PTT INR 1.56 (0.83-1.09) H 10/12/18 05:15 Problem List - Problems (1) Abnormal liver function tests Assessment/Plan: LFTs rising Cholecystostomy tube declined by family Goals of care are being addressed Family awaiting neuro evaluation Minitor LFTs, avoid hepatotoxic agents. D/C'd tylenol Code(s): R94.5 - ABNORMAL RESULTS OF LIVER FUNCTION STUDIES
[2018-10-19] MEDS: CEFEPIME 2 GM in DEXTROSE 5%-WATER 100 ML IVPB SCH ×3 (01:20→18:36)
[2018-10-19 08:35] LABS: HEMATOCRIT 24.7 % (35.4-49); HEMOGLOBIN 8.2 GM/dL (11.7-16.9); MCH 28.9 pg (25.7-33.7); MCHC 33.3 g/dl (32.0-35.9); MEAN CELL VOLUME 86.9 fl (80-96); MEAN PLT VOLUME 7.7 fl (7.5-11.1); PLATELET COUNT 199 K/MM3 (134-434); RBC 2.84 M/mm3 (4.00-5.60); RDW 15.4 % (11.9-15.9); WHITE BLOOD COUNT 7.2 K/mm3 (4.0-10.0)
--- NOTE | 2018-10-19 08:46 | PN ---
Progress Note, Physician Chief Complaint: Sepsis Pleural Effusion History of Present Illness: Previous notes and events reviewed non-verbal, poorly responsive mechanically ventilated Chest tube with serosanguinous output febrile - Current Medication List Current Medications: Active Medications Amantadine HCl (Symmetrel -) 100 mg PO BID [facility] Last Admin: 10/18/18 21:57 Dose: 100 mg Amino Acids (Prosource No Carb Liquid Pkt) 30 ml PO BID@0800,1730 [facility] Last Admin: 10/18/18 17:59 Dose: 30 ml Finasteride (Proscar -) 5 mg NR DAILY [facility] Last Admin: 10/18/18 10:23 Dose: 5 mg Heparin Sodium (Porcine) (Heparin -) 5,000 unit SQ BID [facility] Last Admin: 10/18/18 21:57 Dose: 5,000 unit Cefepime HCl 2 gm/ Dextrose 100 mls @ 200 mls/hr IVPB Q8H-IV [facility]; Protocol Last Admin: 10/19/18 01:20 Dose: 200 mls/hr Midodrine (Proamatine -) 5 mg PO TID-MID [facility] Last Admin: 10/18/18 18:01 Dose: 5 mg Ranitidine HCl (Zantac Oral Solution -) 150 mg GT BID [facility] Last Admin: 10/18/18 21:57 Dose: 150 mg - Objective Vital Signs: Vital Signs Temperature 100.0 F H 10/19/18 08:07 Pulse Rate 72 10/19/18 08:22 Respiratory Rate 16 10/19/18 08:22 Blood Pressure 121/65 10/19/18 08:07 O2 Sat by Pulse Oximetry (%) 100 10/19/18 08:22 Constitutional: Yes: No Distress, Calm Neck: Yes: Other (trach) Cardiovascular: Yes: Regular Rate and Rhythm Respiratory: Yes: Regular, Diminished, Mechanically Ventilated Gastrointestinal: Yes: Normal Bowel Sounds, Soft Genitourinary: Yes: Hinkle Present, Scrotal Edema Musculoskeletal: Yes: Muscle Weakness Extremities: Yes: WNL Edema: Yes Neurological: Yes: Lethargy, Pre-Existing Deficit Labs: CBC, BMP 10/19/18 08:08 INR, PTT INR 1.56 (0.83-1.09) H 10/12/18 05:15 Microbiology 10/12/18 14:20 Pleural Fluid Gram Stain - Final 10/12/18 14:20 Pleural Fluid Body Fluid Culture - Final NO GROWTH OF AEROBIC ORGANISMS AFTER 48 HOURS INCUBATION 10/12/18 14:20 Pleural Fluid Anaerobic Culture - Final NO ANAEROBES WERE ISOLATED 10/07/18 18:03 Blood - Peripheral Venous Blood Culture - Final NO GROWTH AFTER 5 DAYS INCUBATION 10/07/18 18:03 Blood - Peripheral Venous Blood Culture - Final NO GROWTH AFTER 5 DAYS INCUBATION 10/10/18 19:02 Urine For Antigen Detection Legionella Antigen - Final 10/10/18 19:02 Urine For Antigen Detection Streptococcus pneumoniae Antigen (M - Final 10/08/18 10:15 Sputum - Endotrachea Suction/Ventilator Gram Stain - Final 10/08/18 10:15 Sputum - Endotrachea Suction/Ventilator Sputum Culture - Final Enterobacter Cloacae 10/07/18 18:03 Urine - Urine Hinkle Urine Culture - Final Yeast Like Organism Problem List - Problems (1) Abnormal liver function tests Assessment/Plan: -showing uptred -GI on board--recommend surgical eval for poss percutaneous cholecystostomy -surgical consult was placed and recommendations reviewed -patient sons are declining cholecystostomy tube Code(s): R94.5 - ABNORMAL RESULTS OF LIVER FUNCTION STUDIES (2) Chronic respiratory failure Assessment/Plan: -pulm on board -mechanically ventilated -keep SpO2 >90% Code(s): J96.10 - CHRONIC RESPIRATORY FAILURE, UNSP W HYPOXIA OR HYPERCAPNIA (3) Pneumonia Assessment/Plan: -ID on board -no leukocytosis -low grade fevers -Cefepime -tylenol for temp >100F -CXR shows left dense base -urine legionella neg Code(s): J18.9 - PNEUMONIA, UNSPECIFIED ORGANISM (4) Sepsis Assessment/Plan: -ID on board -no leukocytosis -low grade fevers -Cefepime -tylenol for temp >100F -LA 0.9 -pleural fluid cultures neg -sputum culture positive Code(s): A41.9 - SEPSIS, UNSPECIFIED ORGANISM Qualifiers: Sepsis type: sepsis due to unspecified organism Qualified Code(s): A41.9 - Sepsis, unspecified organism (5) Subdural hematoma Assessment/Plan: -Head CT scan reviewed -neurology consult reviewed Code(s): S06.5X9A - TRAUM SUBDR HEM W LOC OF UNSP DURATION, INIT (6) TBI (traumatic brain injury) Assessment/Plan: -neurology consult reviewed Code(s): S06.9X9A - UNSP INTRACRANIAL INJURY W LOC OF UNSP DURATION, INIT (7) Pleural effusion Assessment/Plan: -Pulm on board -Chest tube in place--serosanguinous output -keep SpO2 >90% -CT scan initially show large left pleural effusion Code(s): J90 - PLEURAL EFFUSION, NOT ELSEWHERE CLASSIFIED Assessment/Plan see progress notes dvt ppx DNR
[2018-10-19 08:58] LABS: ALBUMIN 1.4 g/dl (3.4-5.0); BILIRUBIN,TOTAL 0.5 mg/dL (0.2-1); BLOOD UREA NITROGEN 14.2 mg/dL (7-18); CALCIUM 7.4 mg/dL (8.5-10.1); CREATININE 0.3 mg/dL (0.55-1.3); POTASSIUM 3.7 mmol/L (3.5-5.1); TOT PROT 4.5 g/dl (6.4-8.2)
[2018-10-19] MEDS ORDERED: PT OWN MED DRAWER 7, Y5N ONE ×2 (09:27→18:33)
[2018-10-19] MEDS: RANITIDINE HCL 150 MG/10 ML UNIT-DOSE GT SCH ×2 (10:14→22:55)
[2018-10-19] MEDS: HEPARIN NA (PORCINE) 5,000 UNITS/ML 1ML VIAL SQ SCH ×2 (10:14→23:28)
[2018-10-19] MEDS: AMINO ACIDS/PROTEIN HYDROLYS 30 ML LIQUID.PKT PO SCH ×2 (10:14→17:50)
[2018-10-19] MEDS: FINASTERIDE 5 MG TABLET (FP) NR SCH (10:14)
[2018-10-19] MEDS: MIDODRINE HCL 5 MG TABLET PO SCH ×3 (10:16→17:50)
--- NOTE | 2018-10-19 10:33 | PN.GI ---
GI Progress Note Subjective: No acute events with tracheostomy on on ventilator - Objective Vital Signs: Vital Signs Temperature 100.0 F H 10/19/18 08:07 Pulse Rate 72 10/19/18 08:22 Respiratory Rate 16 10/19/18 08:22 Blood Pressure 121/65 10/19/18 08:07 O2 Sat by Pulse Oximetry (%) 100 10/19/18 08:22 Constitutional: Calm Eyes: Yes: Conjunctiva Clear Neck: Yes: Supple Respiratory: Yes: Diminished Gastrointestinal Inspection: Yes: Distention ...Auscultate: Yes: Normoactive Bowel Sounds ...Palpate: No: Firm/Rigid, Guarding ...Percussion: Yes: Tympanitic Genitourinary: Yes: Scrotal Edema Edema: Yes Edema: LUE: 4+, RUE: 4+, LLE: 4+, RLE: 4+ Neurological: Yes: Alert Labs: CBC, [facility] 10/19/18 08:08 10/19/18 08:08 INR, PTT INR 1.56 (0.83-1.09) H 10/12/18 05:15 <Marques Quezada - Last Filed: 10/19/18 10:40> - Objective Vital Signs: Vital Signs Temperature 100.1 F H 10/19/18 10:00 Pulse Rate 72 10/19/18 08:22 Respiratory Rate 15 10/19/18 11:38 Blood Pressure 118/73 10/19/18 10:00 O2 Sat by Pulse Oximetry (%) 100 10/19/18 09:00 Labs: CBC, [facility] 10/19/18 08:08 10/19/18 08:08 INR, PTT INR 1.56 (0.83-1.09) H 10/12/18 05:15 <Diane Carter - Last Filed: 10/19/18 13:06> Assessment/Plan #Tranasaminiutis LFTs rising Cholecystostomy tube declined by family Goals of care are being addressed Family awaiting neuro evaluation Minitor LFTs, avoid hepatotoxic agents. D/C'd tylenol <Marques Quezada - Last Filed: 10/19/18 10:40> Problem List - Problems (1) Abnormal liver function tests Code(s): R94.5 - ABNORMAL RESULTS OF LIVER FUNCTION STUDIES <Marques Quezada - Last Filed: 10/19/18 10:40> - Problems (1) Abnormal liver function tests Assessment/Plan: Pt seen/examined at bedside, agree with above assessment/plan per Dr. Quezada. Pts son declined cholecystostomy tube and goals of care are being discussed ? palliative care. LFTs are downtrending. In the interim if any change in status or if pts son decides to pursue interventions please notify GI. Code(s): R94.5 - ABNORMAL RESULTS OF LIVER FUNCTION STUDIES <Diane Carter - Last Filed: 10/19/18 13:06>
[2018-10-19] MEDS: AMANTADINE HCL 100 MG TABLET PO SCH ×2 (11:05→22:55)
--- NOTE | 2018-10-19 14:41 | PN ---
Progress Note, Physician History of Present Illness: PULMONARY UNRESPONSIVE ON VENT SUPPORT AC MODE,FEBRILE 100.1 - Current Medication List Current Medications: Active Medications Amantadine HCl (Symmetrel -) 100 mg PO BID [facility] Last Admin: 10/19/18 11:05 Dose: 100 mg Amino Acids (Prosource No Carb Liquid Pkt) 30 ml PO BID@0800,1730 [facility] Last Admin: 10/19/18 10:14 Dose: 30 ml Finasteride (Proscar -) 5 mg NR DAILY [facility] Last Admin: 10/19/18 10:14 Dose: 5 mg Heparin Sodium (Porcine) (Heparin -) 5,000 unit SQ BID [facility] Last Admin: 10/19/18 10:14 Dose: 5,000 unit Cefepime HCl 2 gm/ Dextrose 100 mls @ 200 mls/hr IVPB Q8H-IV [facility]; Protocol Last Admin: 10/19/18 10:18 Dose: 200 mls/hr Midodrine (Proamatine -) 5 mg PO TID-MID [facility] Last Admin: 10/19/18 14:00 Dose: 5 mg Ranitidine HCl (Zantac Oral Solution -) 150 mg GT BID [facility] Last Admin: 10/19/18 10:14 Dose: 150 mg - Objective Vital Signs: Vital Signs Temperature 100.1 F H 10/19/18 10:00 Pulse Rate 72 10/19/18 08:22 Respiratory Rate 15 10/19/18 11:38 Blood Pressure 118/73 10/19/18 10:00 O2 Sat by Pulse Oximetry (%) 100 10/19/18 09:00 Constitutional: Yes: Well Nourished, Calm Eyes: Yes: WNL HENT: Yes: WNL Neck: Yes: WNL Cardiovascular: Yes: Regular Rate and Rhythm, S1, S2 Respiratory: Yes: Rhonchi (JACQUELYN RHONCHI) Gastrointestinal: Yes: Normal Bowel Sounds, Soft Extremities: Yes: WNL Edema: No Labs: CBC, BMP 10/19/18 08:08 10/19/18 08:08 INR, PTT INR 1.56 (0.83-1.09) H 10/12/18 05:15 Problem List - Problems (1) Abnormal liver function tests Code(s): R94.5 - ABNORMAL RESULTS OF LIVER FUNCTION STUDIES (2) Chronic respiratory failure Code(s): J96.10 - CHRONIC RESPIRATORY FAILURE, UNSP W HYPOXIA OR HYPERCAPNIA (3) Fever Code(s): R50.9 - FEVER, UNSPECIFIED (4) Pneumonia Code(s): J18.9 - PNEUMONIA, UNSPECIFIED ORGANISM (5) Subdural hematoma Code(s): S06.5X9A - TRAUM SUBDR HEM W LOC OF UNSP DURATION, INIT (6) TBI (traumatic brain injury) Code(s): S06.9X9A - UNSP INTRACRANIAL INJURY W LOC OF UNSP DURATION, INIT Assessment/Plan ASSESSMENT AND PLAN: Pneumonia Bilateral Pleural Effusions Severe Sepsis Elevated LFTs likely ischemic injury Coagulopathy Volume Overload Traumatic Brain Injury Chronic Respiratory Failure s/p Tracheostomy Acalculous Cholecystitis - Antibiotics per ID - continue volume assist control - enteral feeds - DVT/GI prophylaxis - Prognosis poor DR KING
[2018-10-20] MEDS: CEFEPIME 2 GM in DEXTROSE 5%-WATER 100 ML IVPB SCH ×2 (02:16→09:57)
[2018-10-20] MEDS: AMINO ACIDS/PROTEIN HYDROLYS 30 ML LIQUID.PKT PO SCH (08:05)
[2018-10-20 09:26] LABS: HEMATOCRIT 25.6 % (35.4-49); HEMOGLOBIN 8.5 GM/dL (11.7-16.9); MCH 28.6 pg (25.7-33.7); MCHC 33.1 g/dl (32.0-35.9); MEAN CELL VOLUME 86.4 fl (80-96); MEAN PLT VOLUME 7.8 fl (7.5-11.1); RBC 2.97 M/mm3 (4.00-5.60); RDW 15.7 % (11.9-15.9); WHITE BLOOD COUNT 5.2 K/mm3 (4.0-10.0)
[2018-10-20] MEDS ORDERED: PT OWN MED DRAWER 7, Y5N ONE (09:29)
[2018-10-20 09:56] LABS: ALBUMIN 1.5 g/dl (3.4-5.0); BILIRUBIN,TOTAL 0.4 mg/dL (0.2-1); BLOOD UREA NITROGEN 16.2 mg/dL (7-18); CALCIUM 7.6 mg/dL (8.5-10.1); CREATININE 0.3 mg/dL (0.55-1.3); POTASSIUM 3.8 mmol/L (3.5-5.1); TOT PROT 4.8 g/dl (6.4-8.2)
[2018-10-20] MEDS: HEPARIN NA (PORCINE) 5,000 UNITS/ML 1ML VIAL SQ SCH (09:57)
[2018-10-20] MEDS: FINASTERIDE 5 MG TABLET (FP) NR SCH (09:57)
[2018-10-20] MEDS: RANITIDINE HCL 150 MG/10 ML UNIT-DOSE GT SCH (09:57)
[2018-10-20] MEDS: MIDODRINE HCL 5 MG TABLET PO SCH (09:59)
[2018-10-20] MEDS: AMANTADINE HCL 100 MG TABLET PO SCH (09:59)
[2018-10-20 10:14] LABS: PLATELET COUNT 192 K/MM3 (134-434)
--- NOTE | 2018-10-20 11:07 | PN ---
Progress Note, Physician Chief Complaint: Sepsis Pleural Effusion History of Present Illness: Previous notes and events reviewed non-verbal, poorly responsive mechanically ventilated RN Cori spoke with both of patients sons and they have decided no more medication, lab draws, invasive procedures, decision has been made to compassionately wean patient tomorrow started on Morphine drip - Current Medication List Current Medications: Active Medications Morphine Sulfate (Morphine 100mg/100ml-0.9% Nacl) 100 mg in 100 mls @ 1 mls/hr IVPB TITR [facility]; Protocol - Objective Vital Signs: Vital Signs Temperature 99.7 F H 10/20/18 06:45 Pulse Rate 72 10/20/18 08:30 Respiratory Rate 13 10/20/18 08:30 Blood Pressure 113/74 10/20/18 06:45 O2 Sat by Pulse Oximetry (%) 97 10/20/18 08:30 Constitutional: Yes: No Distress, Calm Neck: Yes: Other (trach) Cardiovascular: Yes: Regular Rate and Rhythm Respiratory: Yes: Mechanically Ventilated, Rhonchi Gastrointestinal: Yes: Normal Bowel Sounds, Soft Genitourinary: Yes: Hinkle Present Musculoskeletal: Yes: Muscle Weakness Extremities: Yes: WNL Edema: Yes Neurological: Yes: Pre-Existing Deficit Labs: CBC, BMP 10/20/18 09:03 10/20/18 09:03 INR, PTT INR 1.56 (0.83-1.09) H 10/12/18 05:15 Problem List - Problems (1) Abnormal liver function tests Assessment/Plan: -GI on board--recommend surgical eval for poss percutaneous cholecystostomy -surgical consult was placed and recommendations reviewed -patient sons are declining cholecystostomy tube Code(s): R94.5 - ABNORMAL RESULTS OF LIVER FUNCTION STUDIES (2) Chronic respiratory failure Assessment/Plan: -pulm on board -mechanically ventilated -keep SpO2 >90% Code(s): J96.10 - CHRONIC RESPIRATORY FAILURE, UNSP W HYPOXIA OR HYPERCAPNIA (3) Pneumonia Assessment/Plan: -ID on board -no leukocytosis -low grade fevers -CXR shows left dense base -urine legionella neg Code(s): J18.9 - PNEUMONIA, UNSPECIFIED ORGANISM (4) Sepsis Assessment/Plan: -ID on board -no leukocytosis -low grade fevers -LA 0.9 -pleural fluid cultures neg -sputum culture positive Code(s): A41.9 - SEPSIS, UNSPECIFIED ORGANISM Qualifiers: Sepsis type: sepsis due to unspecified organism Qualified Code(s): A41.9 - Sepsis, unspecified organism (5) Subdural hematoma Assessment/Plan: -Head CT scan reviewed -neurology consult reviewed Code(s): S06.5X9A - TRAUM SUBDR HEM W LOC OF UNSP DURATION, INIT (6) TBI (traumatic brain injury) Assessment/Plan: -neurology consult reviewed Code(s): S06.9X9A - UNSP INTRACRANIAL INJURY W LOC OF UNSP DURATION, INIT (7) Pleural effusion Assessment/Plan: -Pulm on board -Chest tube in place--serosanguinous output -keep SpO2 >90% -CT scan initially show large left pleural effusion Code(s): J90 - PLEURAL EFFUSION, NOT ELSEWHERE CLASSIFIED Assessment/Plan see progress notes dvt ppx DNR no more medication, lab draws or invasive procedures
[2018-10-20] MEDS: MORPHINE SULFATE/0.9% NACL/PF 100 MG/100 ML BAG IVPB SCH (12:06)
--- NOTE | 2018-10-20 12:08 | PN ---
Progress Note (short form) - Note Progress Note: Remains vented and poorly responsive. No acute events overnight. Noted patient will have a compassionate extubation tomorrow. OBJECTIVE: Intake & Output 10/17/18 10/18/18 10/19/18 10/20/18 23:59 23:59 23:59 23:59 Intake Total 1999 2009 950 1000 Output Total 950 1250 1800 Balance 1050 760 -850 1000 Last Vital Signs Temp Pulse Resp BP Pulse Ox 99 F 74 20 108/70 97 10/20/18 10:00 10/20/18 10:00 10/20/18 10:00 10/20/18 10:00 10/20/18 09:00 Active Medications Morphine Sulfate (Morphine 100mg/100ml-0.9% Nacl) 100 mg in 100 mls @ 1 mls/hr IVPB TITR [facility]; Protocol Gen: vented, poorly responsive Heart: RRR Lung: scattered rhonchi Abd: soft, nontender Ext: + edema Laboratory Results - last 24 hr 10/20/18 10/20/18 09:03 09:03 WBC 5.2 RBC 2.97 L Hgb 8.5 L Hct 25.6 L MCV 86.4 MCH 28.6 MCHC 33.1 RDW 15.7 Plt Count 192 MPV 7.8 Sodium 135 L Potassium 3.8 Chloride 97 L Carbon Dioxide 33 H Anion Gap 5 L BUN 16.2 Creatinine 0.3 L Est GFR (CKD-EPI)AfAm 149.45 Est GFR (CKD-EPI)NonAf 128.95 Random Glucose 126 H Calcium 7.6 L Total Bilirubin 0.4 AST 66 H ALT 170 H Alkaline Phosphatase 236 H Total Protein 4.8 L Albumin 1.5 L ASSESSMENT AND PLAN: Pneumonia Bilateral Pleural Effusions Severe Sepsis Elevated LFTs likely ischemic injury Coagulopathy Volume Overload Traumatic Brain Injury Chronic Respiratory Failure s/p Tracheostomy Acalculous Cholecystitis - Comfort measures - For compassionate extubation tomorrow: around 10:30AM - DNR/DNI Dr Jones
--- NOTE | 2018-10-21 10:10 | PN ---
Progress Note, Physician - Current Medication List Current Medications: Active Medications Morphine Sulfate (Morphine 100mg/100ml-0.9% Nacl) 100 mg in 100 mls @ 1 mls/hr IVPB TITR [facility]; Protocol Last Admin: 10/20/18 12:06 Dose: 1 mg/hr, 1 mls/hr - Objective Vital Signs: Vital Signs Temperature 98.2 F 10/21/18 06:00 Pulse Rate 75 10/21/18 06:00 Respiratory Rate 20 10/21/18 06:00 Blood Pressure 126/77 10/21/18 06:00 O2 Sat by Pulse Oximetry (%) 99 10/20/18 21:35 Cardiovascular: Yes: S1 Respiratory: Yes: Mechanically Ventilated Labs: CBC, BMP 10/20/18 09:03 10/20/18 09:03 INR, PTT INR 1.56 (0.83-1.09) H 10/12/18 05:15 Problem List - Problems (1) Fever Code(s): R50.9 - FEVER, UNSPECIFIED (2) Sepsis Code(s): A41.9 - SEPSIS, UNSPECIFIED ORGANISM Qualifiers: Sepsis type: sepsis due to unspecified organism Qualified Code(s): A41.9 - Sepsis, unspecified organism (3) Subdural hematoma Code(s): S06.5X9A - TRAUM SUBDR HEM W LOC OF UNSP DURATION, INIT (4) Chronic respiratory failure Code(s): J96.10 - CHRONIC RESPIRATORY FAILURE, UNSP W HYPOXIA OR HYPERCAPNIA (5) Pneumonia Code(s): J18.9 - PNEUMONIA, UNSPECIFIED ORGANISM (6) Afib Code(s): I48.91 - UNSPECIFIED ATRIAL FIBRILLATION Assessment/Plan - Problems (1) Abnormal liver function tests Assessment/Plan: -GI on board--recommend surgical eval for poss percutaneous cholecystostomy -surgical consult was placed and recommendations reviewed -patient sons are declining cholecystostomy tube Code(s): R94.5 - ABNORMAL RESULTS OF LIVER FUNCTION STUDIES (2) Chronic respiratory failure Assessment/Plan: -pulm on board -mechanically ventilated -keep SpO2 >90% Code(s): J96.10 - CHRONIC RESPIRATORY FAILURE, UNSP W HYPOXIA OR HYPERCAPNIA (3) Pneumonia Assessment/Plan: -ID on board -no leukocytosis -low grade fevers -CXR shows left dense base -urine legionella neg Code(s): J18.9 - PNEUMONIA, UNSPECIFIED ORGANISM (4) Sepsis Assessment/Plan: -ID on board -no leukocytosis -low grade fevers -LA 0.9 -pleural fluid cultures neg -sputum culture positive Code(s): A41.9 - SEPSIS, UNSPECIFIED ORGANISM Qualifiers: Sepsis type: sepsis due to unspecified organism Qualified Code(s): A41.9 - Sepsis, unspecified organism (5) Subdural hematoma Assessment/Plan: -Head CT scan reviewed -neurology consult reviewed Code(s): S06.5X9A - TRAUM SUBDR HEM W LOC OF UNSP DURATION, INIT (6) TBI (traumatic brain injury) Assessment/Plan: -neurology consult reviewed Code(s): S06.9X9A - UNSP INTRACRANIAL INJURY W LOC OF UNSP DURATION, INIT (7) Pleural effusion Assessment/Plan: -Pulm on board -Chest tube in place--serosanguinous output -keep SpO2 >90% -CT scan initially show large left pleural effusion Code(s): J90 - PLEURAL EFFUSION, NOT ELSEWHERE CLASSIFIED see above compasionate weaning today DNR no more medication, lab draws or invasive procedures
[2018-10-21] MEDS ORDERED: LORazepam 2 MG/ML SDV VIAL IVPUSH PRN (11:30)
[2018-10-21] MEDS: MORPHINE SULFATE 2 MG/ML VIAL IVPUSH PRN (11:35)
[2018-10-21] MEDS: MORPHINE SULFATE/0.9% NACL/PF 100 MG/100 ML BAG IVPB SCH (12:11)
[2018-10-22] MEDS: MORPHINE SULFATE 2 MG/ML VIAL IVPUSH PRN (01:29)
[2018-10-22 06:23] VITALS: BP 85/50; PULSE 114; TEMP 97.5
--- NOTE | 2018-10-22 08:56 | DS ---
Physical Examination Vital Signs: Vital Signs Temperature 97.5 F L 10/22/18 06:20 Pulse Rate 114 H 10/22/18 06:20 Respiratory Rate 19 10/22/18 06:20 Blood Pressure 85/50 L 10/22/18 06:20 O2 Sat by Pulse Oximetry (%) 97 10/21/18 09:45 Findings/Remarks: Patient is a 77 y/o male with past medical history of C-spine fracture, trach, PEG tube, TBI, hx of cardiac arrest, afib, subarachnoid/subdural hemmorhage. Patient presented to ER from [facility] for fever. During hospitalization family meetings held and decision to make patient DNR. After Neurology consult family made decision to compassionately wean patient from ventilator, which began yesterday morning. Called by RN to bedside because patient noted with no respirations or palpable pulse. Assessment done and patient noted with fixed and dilated pupils, no palpable carotid pulse, no respirations or cardiac rhythm noted on auscultation. Patient pronounced at 08: 45 AM. Eyes: Yes: Other (pupils fixed and dilated) Neck: Yes: Other (trach) Cardiovascular: Yes: Other (no rhythm auscultated, no palpable carotid pulse) Respiratory: Yes: Other (no BS on auscultation) Neurological: Yes: Unresponsive Labs: CBC, BMP 10/20/18 09:03 10/20/18 09:03 Discharge Summary Reason For Visit: SEPSIS Current Active Problems Abnormal liver function tests (Acute) Acalculous cholecystitis (Acute) Afib (Acute) Chronic respiratory failure (Acute) Fever (Acute) Pleural effusion (Acute) Pneumonia (Acute) Sepsis (Acute) Subdural hematoma (Acute) TBI (traumatic brain injury) (Acute) Hospital Course: see progress notes Laboratory Tests 10/07/18 10/07/18 10/07/18 18:00 18:03 18:03 WBC 6.1 RBC 3.24 L Hgb 9.5 L Hct 28.5 L MCV 87.8 MCH 29.3 MCHC 33.4 RDW 14.2 Plt Count 190 MPV 10.4 Absolute Neuts (auto) 5.1 Neutrophils % 83.2 H Neutrophils % (Manual) 87.0 H Band Neutrophils % 1.0 Lymphocytes % 10.5 Lymphocytes % (Manual) 10.0 Monocytes % 6.1 Monocytes % (Manual) 2 L Eosinophils % 0.0 Eosinophils % (Manual) 0.0 Basophils % 0.2 Basophils % (Manual) 0.0 Nucleated RBC % 0 Platelet Estimate Adequate PT with INR 24.20 H INR 2.04 H PTT (Actin FS) 31.8 Anticoagulation Therapy Puncture Site ABG pH ABG pCO2 at Pt Temp ABG pO2 at Pt Temp ABG HCO3 ABG O2 Sat (Measured) ABG O2 Content ABG Base Excess Dane Test VBG pH POC VBG pCO2 POC VBG pO2 VBG HCO3 VBG O2 Sat (Britney) VBG Base Excess Carboxyhemoglobin Methemoglobin O2 Delivery Device Oxygen Flow Rate Vent Mode Vent Rate Mechanical Rate PEEP Pressure Support Vent Sodium Potassium Chloride Carbon Dioxide Anion Gap BUN Creatinine Est GFR (CKD-EPI)AfAm Est GFR (CKD-EPI)NonAf POC Glucometer Random Glucose Lactic Acid Calcium Magnesium Total Bilirubin Direct Bilirubin AST ALT Alkaline Phosphatase Creatine Kinase Creatine Kinase Index CK-MB (CK-2) Troponin I Total Protein Albumin Prostate Specific Ag Vitamin K1 Urine Color Dk yellow Urine Appearance Clear Urine pH 5.0 Ur Specific Mackay 1.022 Urine Protein Trace Urine Glucose (UA) Negative Urine Ketones Negative Urine Blood Negative Urine Nitrite Negative Urine Bilirubin Negative Urine Urobilinogen 1.0 Ur Leukocyte Esterase Negative Fluid Source Fluid Osmolality POC Fluid pH Fluid WBC Fluid RBC Fluid Neutrophils Fluid Lymphocytes Fluid Glucose Fluid Albumin Body Fluid LDH Source Fluid Triglycerides Pleural Monocytes Pleural Macrophages Pleural Mesothelial Vancomycin Pre-Dose Acetaminophen Hep A IgM Ab Confirm Hepatitis A Ab Total Hep Bs Antigen Hep Bs Antibody Hep B Core Total Ab Hep B Core IgM Ab Hepatitis Be Antibody Hepatitis Be Antigen Hep C Ab Diagnostic 10/07/18 10/07/18 10/07/18 18:03 18:03 18:03 WBC RBC Hgb Hct MCV MCH MCHC RDW Plt Count MPV Absolute Neuts (auto) Neutrophils % Neutrophils % (Manual) Band Neutrophils % Lymphocytes % Lymphocytes % (Manual) Monocytes % Monocytes % (Manual) Eosinophils % Eosinophils % (Manual) Basophils % Basophils % (Manual) Nucleated RBC % Platelet Estimate PT with INR INR PTT (Actin FS) Anticoagulation Therapy Puncture Site ABG pH ABG pCO2 at Pt Temp ABG pO2 at Pt Temp ABG HCO3 ABG O2 Sat (Measured) ABG O2 Content ABG Base Excess Dane Test VBG pH 7.44 H POC VBG pCO2 41.3 POC VBG pO2 34.3 VBG HCO3 27.3 VBG O2 Sat (Britney) 63.3 L VBG Base Excess 3.3 H Carboxyhemoglobin Methemoglobin O2 Delivery Device Oxygen Flow Rate Vent Mode Vent Rate Mechanical Rate PEEP Pressure Support Vent Sodium 131 L Potassium 5.0 Chloride 97 L Carbon Dioxide 27 Anion Gap 7 L BUN 28.1 H Creatinine 0.7 Est GFR (CKD-EPI)AfAm 105.50 Est GFR (CKD-EPI)NonAf 91.03 POC Glucometer Random Glucose 125 H Lactic Acid 1.5 Calcium 7.2 L Magnesium Total Bilirubin 0.6 Direct Bilirubin AST 393 H ALT 638 H Alkaline Phosphatase 231 H Creatine Kinase Creatine Kinase Index CK-MB (CK-2) Troponin I Total Protein 5.1 L Albumin 1.7 L Prostate Specific Ag Vitamin K1 Urine Color Urine Appearance Urine pH Ur Specific Mack[place] Urine Protein Urine Glucose (UA) Urine Ketones Urine Blood Urine Nitrite Urine Bilirubin Urine Urobilinogen Ur Leukocyte Esterase Fluid Source Fluid Osmolality POC Fluid pH Fluid WBC Fluid RBC Fluid Neutrophils Fluid Lymphocytes Fluid Glucose Fluid Albumin Body Fluid LDH Source Fluid Triglycerides Pleural Monocytes Pleural Macrophages Pleural Mesothelial Vancomycin Pre-Dose Acetaminophen Hep A IgM Ab Confirm Hepatitis A Ab Total Hep Bs Antigen Hep Bs Antibody Hep B Core Total Ab Hep B Core IgM Ab Hepatitis Be Antibody Hepatitis Be Antigen Hep C Ab Diagnostic 10/07/18 10/07/18 10/07/18 18:03 22:55 23:30 WBC RBC Hgb Hct MCV MCH MCHC RDW Plt Count MPV Absolute Neuts (auto) Neutrophils % Neutrophils % (Manual) Band Neutrophils % Lymphocytes % Lymphocytes % (Manual) Monocytes % Monocytes % (Manual) Eosinophils % Eosinophils % (Manual) Basophils % Basophils % (Manual) Nucleated RBC % Platelet Estimate PT with INR INR PTT (Actin FS) Anticoagulation Therapy No Result Required. Puncture Site Left radial ABG pH 7.47 H ABG pCO2 at Pt Temp 35.5 ABG pO2 at Pt Temp 153 H ABG HCO3 25.7 ABG O2 Sat (Measured) 99.5 H ABG O2 Content 12.9 L ABG Base Excess 2.5 H Dane Test Positive VBG pH POC VBG pCO2 POC VBG pO2 VBG HCO3 VBG O2 Sat (Britney) VBG Base Excess Carboxyhemoglobin 1.0 Methemoglobin 0.1 O2 Delivery Device Vent Oxygen Flow Rate 80% Vent Mode A/c Vent Rate 10 Mechanical Rate No Result Required. PEEP 5.0 Pressure Support Vent 500 Sodium Potassium Chloride Carbon Dioxide Anion Gap BUN Creatinine Est GFR (CKD-EPI)AfAm Est GFR (CKD-EPI)NonAf POC Glucometer Random Glucose Lactic Acid 0.9 Calcium Magnesium Total Bilirubin Direct Bilirubin AST ALT Alkaline Phosphatase Creatine Kinase Creatine Kinase Index CK-MB (CK-2) Troponin I 0.03 Total Protein Albumin Prostate Specific Ag Vitamin K1 Urine Color Urine Appearance Urine pH Ur Specific [place] Urine Protein Urine Glucose (UA) Urine Ketones Urine Blood Urine Nitrite Urine Bilirubin Urine Urobilinogen Ur Leukocyte Esterase Fluid Source Fluid Osmolality POC Fluid pH Fluid WBC Fluid RBC Fluid Neutrophils Fluid Lymphocytes Fluid Glucose Fluid Albumin Body Fluid LDH Source Fluid Triglycerides Pleural Monocytes Pleural Macrophages Pleural Mesothelial Vancomycin Pre-Dose Acetaminophen 8.8 L Hep A IgM Ab Confirm Hepatitis A Ab Total Hep Bs Antigen Hep Bs Antibody Hep B Core Total Ab Hep B Core IgM Ab Hepatitis Be Antibody Hepatitis Be Antigen Hep C Ab Diagnostic 10/08/18 10/08/18 10/08/18 05:10 05:10 06:16 WBC 6.3 RBC 3.22 L Hgb 9.4 L Hct 28.3 L MCV 87.7 MCH 29.2 MCHC 33.3 RDW 13.8 Plt Count 150 D MPV 9.9 Absolute Neuts (auto) 4.7 Neutrophils % 75.3 Neutrophils % (Manual) Band Neutrophils % Lymphocytes % 16.5 D Lymphocytes % (Manual) Monocytes % 7.9 Monocytes % (Manual) Eosinophils % 0.0 Eosinophils % (Manual) Basophils % 0.3 Basophils % (Manual) Nucleated RBC % 0 Platelet Estimate PT with INR INR PTT (Actin FS) Anticoagulation Therapy Puncture Site ABG pH ABG pCO2 at Pt Temp ABG pO2 at Pt Temp ABG HCO3 ABG O2 Sat (Measured) ABG O2 Content ABG Base Excess Dane Test VBG pH POC VBG pCO2 POC VBG pO2 VBG HCO3 VBG O2 Sat (Britney) VBG Base Excess Carboxyhemoglobin Methemoglobin O2 Delivery Device Oxygen Flow Rate Vent Mode Vent Rate Mechanical Rate PEEP Pressure Support Vent Sodium 133 L Potassium 4.3 Chloride 98 Carbon Dioxide 27 Anion Gap 7 L BUN 23.6 H Creatinine 0.6 Est GFR (CKD-EPI)AfAm 112.40 Est GFR (CKD-EPI)NonAf 96.98 POC Glucometer 107 Random Glucose 103 Lactic Acid Calcium 7.1 L Magnesium Total Bilirubin 0.8 Direct Bilirubin 0.5 H AST 282 H ALT 558 H Alkaline Phosphatase 192 H Creatine Kinase Creatine Kinase Index CK-MB (CK-2) Troponin I Total Protein 4.5 L Albumin 1.5 L Prostate Specific Ag Vitamin K1 Urine Color Urine Appearance Urine pH Ur Specific Mack[place] Urine Protein Urine Glucose (UA) Urine Ketones Urine Blood Urine Nitrite Urine Bilirubin Urine Urobilinogen Ur Leukocyte Esterase Fluid Source Fluid Osmolality POC Fluid pH Fluid WBC Fluid RBC Fluid Neutrophils Fluid Lymphocytes Fluid Glucose Fluid Albumin Body Fluid LDH Source Fluid Triglycerides Pleural Monocytes Pleural Macrophages Pleural Mesothelial Vancomycin Pre-Dose Acetaminophen Hep A IgM Ab Confirm Hepatitis A Ab Total Hep Bs Antigen Hep Bs Antibody Hep B Core Total Ab Hep B Core IgM Ab Hepatitis Be Antibody Hepatitis Be Antigen Hep C Ab Diagnostic 10/08/18 10/08/18 10/08/18 11:01 16:29 17:46 WBC RBC Hgb Hct MCV MCH MCHC RDW Plt Count MPV Absolute Neuts (auto) Neutrophils % Neutrophils % (Manual) Band Neutrophils % Lymphocytes % Lymphocytes % (Manual) Monocytes % Monocytes % (Manual) Eosinophils % Eosinophils % (Manual) Basophils % Basophils % (Manual) Nucleated RBC % Platelet Estimate PT with INR INR PTT (Actin FS) Anticoagulation Therapy Puncture Site ABG pH ABG pCO2 at Pt Temp ABG pO2 at Pt Temp ABG HCO3 ABG O2 Sat (Measured) ABG O2 Content ABG Base Excess Dane Test VBG pH POC VBG pCO2 POC VBG pO2 VBG HCO3 VBG O2 Sat (Britney) VBG Base Excess Carboxyhemoglobin Methemoglobin O2 Delivery Device Oxygen Flow Rate Vent Mode Vent Rate Mechanical Rate PEEP Pressure Support Vent Sodium Potassium Chloride Carbon Dioxide Anion Gap BUN Creatinine Est GFR (CKD-EPI)AfAm Est GFR (CKD-EPI)NonAf POC Glucometer 94 119 Random Glucose Lactic Acid Calcium Magnesium Total Bilirubin Direct Bilirubin AST ALT Alkaline Phosphatase Creatine Kinase 429 H Creatine Kinase Index 0.6 CK-MB (CK-2) 2.9 Troponin I Total Protein Albumin Prostate Specific Ag Vitamin K1 Urine Color Urine Appearance Urine pH Ur Specific Mack[place] Urine Protein Urine Glucose (UA) Urine Ketones Urine Blood Urine Nitrite Urine Bilirubin Urine Urobilinogen Ur Leukocyte Esterase Fluid Source Fluid Osmolality POC Fluid pH Fluid WBC Fluid RBC Fluid Neutrophils Fluid Lymphocytes Fluid Glucose Fluid Albumin Body Fluid LDH Source Fluid Triglycerides Pleural Monocytes Pleural Macrophages Pleural Mesothelial Vancomycin Pre-Dose Acetaminophen Hep A IgM Ab Confirm Hepatitis A Ab Total Hep Bs Antigen Hep Bs Antibody Hep B Core Total Ab Hep B Core IgM Ab Hepatitis Be Antibody Hepatitis Be Antigen Hep C Ab Diagnostic 10/08/18 10/09/18 10/09/18 21:32 05:00 05:00 WBC 8.5 RBC 3.27 L Hgb 9.4 L Hct 28.5 L MCV 87.2 MCH 28.8 MCHC 33.1 RDW 14.4 Plt Count 181 D MPV 10.0 Absolute Neuts (auto) 6.9 Neutrophils % 81.3 Neutrophils % (Manual) Band Neutrophils % Lymphocytes % 13.3 Lymphocytes % (Manual) Monocytes % 4.6 Monocytes % (Manual) Eosinophils % 0.6 D Eosinophils % (Manual) Basophils % 0.2 Basophils % (Manual) Nucleated RBC % 0 Platelet Estimate PT with INR INR PTT (Actin FS) Anticoagulation Therapy Puncture Site ABG pH ABG pCO2 at Pt Temp ABG pO2 at Pt Temp ABG HCO3 ABG O2 Sat (Measured) ABG O2 Content ABG Base Excess Dane Test VBG pH POC VBG pCO2 POC VBG pO2 VBG HCO3 VBG O2 Sat (Britney) VBG Base Excess Carboxyhemoglobin Methemoglobin O2 Delivery Device Oxygen Flow Rate Vent Mode Vent Rate Mechanical Rate PEEP Pressure Support Vent Sodium 133 L Potassium 4.0 Chloride 101 Carbon Dioxide 26 Anion Gap 6 L BUN 20.2 H Creatinine 0.5 L Est GFR (CKD-EPI)AfAm 121.15 Est GFR (CKD-EPI)NonAf 104.53 POC Glucometer 123 Random Glucose 93 Lactic Acid Calcium 7.2 L Magnesium Total Bilirubin 1.2 H Direct Bilirubin 0.6 H AST 113 H ALT 360 H Alkaline Phosphatase 174 H Creatine Kinase Creatine Kinase Index CK-MB (CK-2) Troponin I Total Protein 4.3 L Albumin 1.4 L Prostate Specific Ag Vitamin K1 Urine Color Urine Appearance Urine pH Ur Specific Mackay Urine Protein Urine Glucose (UA) Urine Ketones Urine Blood Urine Nitrite Urine Bilirubin Urine Urobilinogen Ur Leukocyte Esterase Fluid Source Fluid Osmolality POC Fluid pH Fluid WBC Fluid RBC Fluid Neutrophils Fluid Lymphocytes Fluid Glucose Fluid Albumin Body Fluid LDH Source Fluid Triglycerides Pleural Monocytes Pleural Macrophages Pleural Mesothelial Vancomycin Pre-Dose Acetaminophen Hep A IgM Ab Confirm Hepatitis A Ab Total Hep Bs Antigen Hep Bs Antibody Hep B Core Total Ab Hep B Core IgM Ab Hepatitis Be Antibody Hepatitis Be Antigen Hep C Ab Diagnostic 10/09/18 10/09/18 10/09/18 05:00 05:27 11:41 WBC RBC Hgb Hct MCV MCH MCHC RDW Plt Count MPV Absolute Neuts (auto) Neutrophils % Neutrophils % (Manual) Band Neutrophils % Lymphocytes % Lymphocytes % (Manual) Monocytes % Monocytes % (Manual) Eosinophils % Eosinophils % (Manual) Basophils % Basophils % (Manual) Nucleated RBC % Platelet Estimate PT with INR INR PTT (Actin FS) Anticoagulation Therapy Puncture Site ABG pH ABG pCO2 at Pt Temp ABG pO2 at Pt Temp ABG HCO3 ABG O2 Sat (Measured) ABG O2 Content ABG Base Excess Dane Test VBG pH POC VBG pCO2 POC VBG pO2 VBG HCO3 VBG O2 Sat (Britney) VBG Base Excess Carboxyhemoglobin Methemoglobin O2 Delivery Device Oxygen Flow Rate Vent Mode Vent Rate Mechanical Rate PEEP Pressure Support Vent Sodium Potassium Chloride Carbon Dioxide Anion Gap BUN Creatinine Est GFR (CKD-EPI)AfAm Est GFR (CKD-EPI)NonAf POC Glucometer 92 99 Random Glucose Lactic Acid Calcium Magnesium Total Bilirubin Direct Bilirubin AST ALT Alkaline Phosphatase Creatine Kinase Creatine Kinase Index CK-MB (CK-2) Troponin I Total Protein Albumin Prostate Specific Ag Vitamin K1 Urine Color Urine Appearance Urine pH Ur Specific Mack[place] Urine Protein Urine Glucose (UA) Urine Ketones Urine Blood Urine Nitrite Urine Bilirubin Urine Urobilinogen Ur Leukocyte Esterase Fluid Source Fluid Osmolality POC Fluid pH Fluid WBC Fluid RBC Fluid Neutrophils Fluid Lymphocytes Fluid Glucose Fluid Albumin Body Fluid LDH Source Fluid Triglycerides Pleural Monocytes Pleural Macrophages Pleural Mesothelial Vancomycin Pre-Dose Acetaminophen Hep A IgM Ab Confirm Negative Hepatitis A Ab Total Negative Hep Bs Antigen Negative Hep Bs Antibody Non-reactive Hep B Core Total Ab Negative Hep B Core IgM Ab Negative Hepatitis Be Antibody Negative Hepatitis Be Antigen Negative Hep C Ab Diagnostic <0.1 10/09/18 10/09/18 10/10/18 16:40 21:59 05:20 WBC RBC Hgb Hct MCV MCH MCHC RDW Plt Count MPV Absolute Neuts (auto) Neutrophils % Neutrophils % (Manual) Band Neutrophils % Lymphocytes % Lymphocytes % (Manual) Monocytes % Monocytes % (Manual) Eosinophils % Eosinophils % (Manual) Basophils % Basophils % (Manual) Nucleated RBC % Platelet Estimate PT with INR INR PTT (Actin FS) Anticoagulation Therapy Puncture Site ABG pH ABG pCO2 at Pt Temp ABG pO2 at Pt Temp ABG HCO3 ABG O2 Sat (Measured) ABG O2 Content ABG Base Excess Dane Test VBG pH POC VBG pCO2 POC VBG pO2 VBG HCO3 VBG O2 Sat (Britney) VBG Base Excess Carboxyhemoglobin Methemoglobin O2 Delivery Device Oxygen Flow Rate Vent Mode Vent Rate Mechanical Rate PEEP Pressure Support Vent Sodium Potassium Chloride Carbon Dioxide Anion Gap BUN Creatinine Est GFR (CKD-EPI)AfAm Est GFR (CKD-EPI)NonAf POC Glucometer 107 100 Random Glucose Lactic Acid Calcium Magnesium Total Bilirubin Direct Bilirubin AST ALT Alkaline Phosphatase Creatine Kinase Creatine Kinase Index CK-MB (CK-2) Troponin I Total Protein Albumin Prostate Specific Ag Vitamin K1 Urine Color Urine Appearance Urine pH Ur Specific [place] Urine Protein Urine Glucose (UA) Urine Ketones Urine Blood Urine Nitrite Urine Bilirubin Urine Urobilinogen Ur Leukocyte Esterase Fluid Source Fluid Osmolality POC Fluid pH Fluid WBC Fluid RBC Fluid Neutrophils Fluid Lymphocytes Fluid Glucose Fluid Albumin Body Fluid LDH Source Fluid Triglycerides Pleural Monocytes Pleural Macrophages Pleural Mesothelial Vancomycin Pre-Dose 12.5 L Acetaminophen Hep A IgM Ab Confirm Hepatitis A Ab Total Hep Bs Antigen Hep Bs Antibody Hep B Core Total Ab Hep B Core IgM Ab Hepatitis Be Antibody Hepatitis Be Antigen Hep C Ab Diagnostic 10/10/18 10/10/18 10/10/18 05:33 07:00 12:50 WBC RBC Hgb Hct MCV MCH MCHC RDW Plt Count MPV Absolute Neuts (auto) Neutrophils % Neutrophils % (Manual) Band Neutrophils % Lymphocytes % Lymphocytes % (Manual) Monocytes % Monocytes % (Manual) Eosinophils % Eosinophils % (Manual) Basophils % Basophils % (Manual) Nucleated RBC % Platelet Estimate PT with INR INR PTT (Actin FS) Anticoagulation Therapy Puncture Site ABG pH ABG pCO2 at Pt Temp ABG pO2 at Pt Temp ABG HCO3 ABG O2 Sat (Measured) ABG O2 Content ABG Base Excess Dane Test VBG pH POC VBG pCO2 POC VBG pO2 VBG HCO3 VBG O2 Sat (Britney) VBG Base Excess Carboxyhemoglobin Methemoglobin O2 Delivery Device Oxygen Flow Rate Vent Mode Vent Rate Mechanical Rate PEEP Pressure Support Vent Sodium Potassium Chloride Carbon Dioxide Anion Gap BUN Creatinine Est GFR (CKD-EPI)AfAm Est GFR (CKD-EPI)NonAf POC Glucometer 98 102 Random Glucose Lactic Acid Calcium Magnesium Total Bilirubin 0.8 Direct Bilirubin 0.6 H AST 90 H ALT 263 H Alkaline Phosphatase 165 H Creatine Kinase Creatine Kinase Index CK-MB (CK-2) Troponin I Total Protein 4.0 L Albumin 1.3 L Prostate Specific Ag Vitamin K1 Urine Color Urine Appearance Urine pH Ur Specific Mack[place] Urine Protein Urine Glucose (UA) Urine Ketones Urine Blood Urine Nitrite Urine Bilirubin Urine Urobilinogen Ur Leukocyte Esterase Fluid Source Fluid Osmolality POC Fluid pH Fluid WBC Fluid RBC Fluid Neutrophils Fluid Lymphocytes Fluid Glucose Fluid Albumin Body Fluid LDH Source Fluid Triglycerides Pleural Monocytes Pleural Macrophages Pleural Mesothelial Vancomycin Pre-Dose Acetaminophen Hep A IgM Ab Confirm Hepatitis A Ab Total Hep Bs Antigen Hep Bs Antibody Hep B Core Total Ab Hep B Core IgM Ab Hepatitis Be Antibody Hepatitis Be Antigen Hep C Ab Diagnostic 10/10/18 10/10/18 10/11/18 18:02 22:04 05:21 WBC 6.4 RBC 3.13 L Hgb 9.0 L Hct 27.3 L MCV 87.2 MCH 28.7 MCHC 32.9 RDW 14.6 Plt Count 212 MPV 9.0 Absolute Neuts (auto) Neutrophils % Neutrophils % (Manual) Band Neutrophils % Lymphocytes % Lymphocytes % (Manual) Monocytes % Monocytes % (Manual) Eosinophils % Eosinophils % (Manual) Basophils % Basophils % (Manual) Nucleated RBC % Platelet Estimate PT with INR INR PTT (Actin FS) Anticoagulation Therapy Puncture Site ABG pH ABG pCO2 at Pt Temp ABG pO2 at Pt Temp ABG HCO3 ABG O2 Sat (Measured) ABG O2 Content ABG Base Excess Dane Test VBG pH POC VBG pCO2 POC VBG pO2 VBG HCO3 VBG O2 Sat (Britney) VBG Base Excess Carboxyhemoglobin Methemoglobin O2 Delivery Device Oxygen Flow Rate Vent Mode Vent Rate Mechanical Rate PEEP Pressure Support Vent Sodium Potassium Chloride Carbon Dioxide Anion Gap BUN Creatinine Est GFR (CKD-EPI)AfAm Est GFR (CKD-EPI)NonAf POC Glucometer 94 127 Random Glucose Lactic Acid Calcium Magnesium Total Bilirubin Direct Bilirubin AST ALT Alkaline Phosphatase Creatine Kinase Creatine Kinase Index CK-MB (CK-2) Troponin I Total Protein Albumin Prostate Specific Ag Vitamin K1 Urine Color Urine Appearance Urine pH Ur Specific Mack[place] Urine Protein Urine Glucose (UA) Urine Ketones Urine Blood Urine Nitrite Urine Bilirubin Urine Urobilinogen Ur Leukocyte Esterase Fluid Source Fluid Osmolality POC Fluid pH Fluid WBC Fluid RBC Fluid Neutrophils Fluid Lymphocytes Fluid Glucose Fluid Albumin Body Fluid LDH Source Fluid Triglycerides Pleural Monocytes Pleural Macrophages Pleural Mesothelial Vancomycin Pre-Dose Acetaminophen Hep A IgM Ab Confirm Hepatitis A Ab Total Hep Bs Antigen Hep Bs Antibody Hep B Core Total Ab Hep B Core IgM Ab Hepatitis Be Antibody Hepatitis Be Antigen Hep C Ab Diagnostic 10/11/18 10/11/18 10/11/18 05:21 06:36 11:46 WBC RBC Hgb Hct MCV MCH MCHC RDW Plt Count MPV Absolute Neuts (auto) Neutrophils % Neutrophils % (Manual) Band Neutrophils % Lymphocytes % Lymphocytes % (Manual) Monocytes % Monocytes % (Manual) Eosinophils % Eosinophils % (Manual) Basophils % Basophils % (Manual) Nucleated RBC % Platelet Estimate PT with INR INR PTT (Actin FS) Anticoagulation Therapy Puncture Site ABG pH ABG pCO2 at Pt Temp ABG pO2 at Pt Temp ABG HCO3 ABG O2 Sat (Measured) ABG O2 Content ABG Base Excess Dane Test VBG pH POC VBG pCO2 POC VBG pO2 VBG HCO3 VBG O2 Sat (Britney) VBG Base Excess Carboxyhemoglobin Methemoglobin O2 Delivery Device Oxygen Flow Rate Vent Mode Vent Rate Mechanical Rate PEEP Pressure Support Vent Sodium 134 L Potassium 3.8 Chloride 102 Carbon Dioxide 27 Anion Gap 6 L BUN 11.6 Creatinine 0.4 L Est GFR (CKD-EPI)AfAm 132.78 Est GFR (CKD-EPI)NonAf 114.57 POC Glucometer 131 140 Random Glucose 106 Lactic Acid Calcium 6.9 L* Magnesium Total Bilirubin Direct Bilirubin AST ALT Alkaline Phosphatase Creatine Kinase Creatine Kinase Index CK-MB (CK-2) Troponin I Total Protein Albumin Prostate Specific Ag Vitamin K1 Urine Color Urine Appearance Urine pH Ur Specific [place] Urine Protein Urine Glucose (UA) Urine Ketones Urine Blood Urine Nitrite Urine Bilirubin Urine Urobilinogen Ur Leukocyte Esterase Fluid Source Fluid Osmolality POC Fluid pH Fluid WBC Fluid RBC Fluid Neutrophils Fluid Lymphocytes Fluid Glucose Fluid Albumin Body Fluid LDH Source Fluid Triglycerides Pleural Monocytes Pleural Macrophages Pleural Mesothelial Vancomycin Pre-Dose Acetaminophen Hep A IgM Ab Confirm Hepatitis A Ab Total Hep Bs Antigen Hep Bs Antibody Hep B Core Total Ab Hep B Core IgM Ab Hepatitis Be Antibody Hepatitis Be Antigen Hep C Ab Diagnostic 10/11/18 10/11/18 10/11/18 13:01 13:01 16:52 WBC RBC Hgb Hct MCV MCH MCHC RDW Plt Count MPV Absolute Neuts (auto) Neutrophils % Neutrophils % (Manual) Band Neutrophils % Lymphocytes % Lymphocytes % (Manual) Monocytes % Monocytes % (Manual) Eosinophils % Eosinophils % (Manual) Basophils % Basophils % (Manual) Nucleated RBC % Platelet Estimate PT with INR 20.00 H INR 1.69 H PTT (Actin FS) Anticoagulation Therapy Puncture Site ABG pH ABG pCO2 at Pt Temp ABG pO2 at Pt Temp ABG HCO3 ABG O2 Sat (Measured) ABG O2 Content ABG Base Excess Dane Test VBG pH POC VBG pCO2 POC VBG pO2 VBG HCO3 VBG O2 Sat (Britney) VBG Base Excess Carboxyhemoglobin Methemoglobin O2 Delivery Device Oxygen Flow Rate Vent Mode Vent Rate Mechanical Rate PEEP Pressure Support Vent Sodium Potassium Chloride Carbon Dioxide Anion Gap BUN Creatinine Est GFR (CKD-EPI)AfAm Est GFR (CKD-EPI)NonAf POC Glucometer 116 Random Glucose Lactic Acid Calcium Magnesium Total Bilirubin Direct Bilirubin AST ALT Alkaline Phosphatase Creatine Kinase Creatine Kinase Index CK-MB (CK-2) Troponin I Total Protein Albumin Prostate Specific Ag Vitamin K1 0.15 Urine Color Urine Appearance Urine pH Ur Specific [place] Urine Protein Urine Glucose (UA) Urine Ketones Urine Blood Urine Nitrite Urine Bilirubin Urine Urobilinogen Ur Leukocyte Esterase Fluid Source Fluid Osmolality POC Fluid pH Fluid WBC Fluid RBC Fluid Neutrophils Fluid Lymphocytes Fluid Glucose Fluid Albumin Body Fluid LDH Source Fluid Triglycerides Pleural Monocytes Pleural Macrophages Pleural Mesothelial Vancomycin Pre-Dose Acetaminophen Hep A IgM Ab Confirm Hepatitis A Ab Total Hep Bs Antigen Hep Bs Antibody Hep B Core Total Ab Hep B Core IgM Ab Hepatitis Be Antibody Hepatitis Be Antigen Hep C Ab Diagnostic 10/11/18 10/12/18 10/12/18 21:36 05:15 05:15 WBC 6.1 RBC 3.11 L Hgb 9.0 L Hct 27.0 L MCV 86.9 MCH 28.8 MCHC 33.2 RDW 14.4 Plt Count 224 MPV 8.3 Absolute Neuts (auto) Neutrophils % Neutrophils % (Manual) Band Neutrophils % Lymphocytes % Lymphocytes % (Manual) Monocytes % Monocytes % (Manual) Eosinophils % Eosinophils % (Manual) Basophils % Basophils % (Manual) Nucleated RBC % Platelet Estimate PT with INR 18.50 H INR 1.56 H PTT (Actin FS) Anticoagulation Therapy Puncture Site ABG pH ABG pCO2 at Pt Temp ABG pO2 at Pt Temp ABG HCO3 ABG O2 Sat (Measured) ABG O2 Content ABG Base Excess Dane Test VBG pH POC VBG pCO2 POC VBG pO2 VBG HCO3 VBG O2 Sat (Britney) VBG Base Excess Carboxyhemoglobin Methemoglobin O2 Delivery Device Oxygen Flow Rate Vent Mode Vent Rate Mechanical Rate PEEP Pressure Support Vent Sodium Potassium Chloride Carbon Dioxide Anion Gap BUN Creatinine Est GFR (CKD-EPI)AfAm Est GFR (CKD-EPI)NonAf POC Glucometer 143 Random Glucose Lactic Acid Calcium Magnesium Total Bilirubin Direct Bilirubin AST ALT Alkaline Phosphatase Creatine Kinase Creatine Kinase Index CK-MB (CK-2) Troponin I Total Protein Albumin Prostate Specific Ag Vitamin K1 Urine Color Urine Appearance Urine pH Ur Specific [place] Urine Protein Urine Glucose (UA) Urine Ketones Urine Blood Urine Nitrite Urine Bilirubin Urine Urobilinogen Ur Leukocyte Esterase Fluid Source Fluid Osmolality POC Fluid pH Fluid WBC Fluid RBC Fluid Neutrophils Fluid Lymphocytes Fluid Glucose Fluid Albumin Body Fluid LDH Source Fluid Triglycerides Pleural Monocytes Pleural Macrophages Pleural Mesothelial Vancomycin Pre-Dose Acetaminophen Hep A IgM Ab Confirm Hepatitis A Ab Total Hep Bs Antigen Hep Bs Antibody Hep B Core Total Ab Hep B Core IgM Ab Hepatitis Be Antibody Hepatitis Be Antigen Hep C Ab Diagnostic 10/12/18 10/12/18 10/12/18 05:15 05:25 11:08 WBC RBC Hgb Hct MCV MCH MCHC RDW Plt Count MPV Absolute Neuts (auto) Neutrophils % Neutrophils % (Manual) Band Neutrophils % Lymphocytes % Lymphocytes % (Manual) Monocytes % Monocytes % (Manual) Eosinophils % Eosinophils % (Manual) Basophils % Basophils % (Manual) Nucleated RBC % Platelet Estimate PT with INR INR PTT (Actin FS) Anticoagulation Therapy Puncture Site ABG pH ABG pCO2 at Pt Temp ABG pO2 at Pt Temp ABG HCO3 ABG O2 Sat (Measured) ABG O2 Content ABG Base Excess Dane Test VBG pH POC VBG pCO2 POC VBG pO2 VBG HCO3 VBG O2 Sat (Britney) VBG Base Excess Carboxyhemoglobin Methemoglobin O2 Delivery Device Oxygen Flow Rate Vent Mode Vent Rate Mechanical Rate PEEP Pressure Support Vent Sodium Potassium Chloride Carbon Dioxide Anion Gap BUN Creatinine Est GFR (CKD-EPI)AfAm Est GFR (CKD-EPI)NonAf POC Glucometer 155 184 Random Glucose Lactic Acid Calcium Magnesium 1.7 L Total Bilirubin 0.7 Direct Bilirubin 0.5 H AST 62 H ALT 193 H Alkaline Phosphatase 256 H Creatine Kinase Creatine Kinase Index CK-MB (CK-2) Troponin I Total Protein 4.3 L Albumin 1.4 L Prostate Specific Ag Vitamin K1 Urine Color Urine Appearance Urine pH Ur Specific [place] Urine Protein Urine Glucose (UA) Urine Ketones Urine Blood Urine Nitrite Urine Bilirubin Urine Urobilinogen Ur Leukocyte Esterase Fluid Source Fluid Osmolality POC Fluid pH Fluid WBC Fluid RBC Fluid Neutrophils Fluid Lymphocytes Fluid Glucose Fluid Albumin Body Fluid LDH Source Fluid Triglycerides Pleural Monocytes Pleural Macrophages Pleural Mesothelial Vancomycin Pre-Dose Acetaminophen Hep A IgM Ab Confirm Hepatitis A Ab Total Hep Bs Antigen Hep Bs Antibody Hep B Core Total Ab Hep B Core IgM Ab Hepatitis Be Antibody Hepatitis Be Antigen Hep C Ab Diagnostic 10/12/18 10/12/18 10/12/18 13:17 14:20 14:20 WBC RBC Hgb Hct MCV MCH MCHC RDW Plt Count MPV Absolute Neuts (auto) Neutrophils % Neutrophils % (Manual) Band Neutrophils % Lymphocytes % Lymphocytes % (Manual) Monocytes % Monocytes % (Manual) Eosinophils % Eosinophils % (Manual) Basophils % Basophils % (Manual) Nucleated RBC % Platelet Estimate PT with INR INR PTT (Actin FS) Anticoagulation Therapy Puncture Site ABG pH ABG pCO2 at Pt Temp ABG pO2 at Pt Temp ABG HCO3 ABG O2 Sat (Measured) ABG O2 Content ABG Base Excess Dane Test VBG pH POC VBG pCO2 POC VBG pO2 VBG HCO3 VBG O2 Sat (Britney) VBG Base Excess Carboxyhemoglobin Methemoglobin O2 Delivery Device Oxygen Flow Rate Vent Mode Vent Rate Mechanical Rate PEEP Pressure Support Vent Sodium Potassium Chloride Carbon Dioxide Anion Gap BUN Creatinine Est GFR (CKD-EPI)AfAm Est GFR (CKD-EPI)NonAf POC Glucometer Random Glucose Lactic Acid Calcium Magnesium Total Bilirubin Direct Bilirubin AST ALT Alkaline Phosphatase Creatine Kinase Creatine Kinase Index CK-MB (CK-2) Troponin I Total Protein Albumin Prostate Specific Ag Vitamin K1 Urine Color Urine Appearance Urine pH Ur Specific [place] Urine Protein Urine Glucose (UA) Urine Ketones Urine Blood Urine Nitrite Urine Bilirubin Urine Urobilinogen Ur Leukocyte Esterase Fluid Source Pleural Fluid Osmolality POC Fluid pH Cancelled 8.3 Fluid WBC 383 Fluid RBC 2781 Fluid Neutrophils 17 Fluid Lymphocytes 10 Fluid Glucose 178 Fluid Albumin 1.0 Body Fluid LDH Source 178 Fluid Triglycerides 9 Pleural Monocytes 14 Pleural Macrophages 50 Pleural Mesothelial 9 Vancomycin Pre-Dose Acetaminophen Hep A IgM Ab Confirm Hepatitis A Ab Total Hep Bs Antigen Hep Bs Antibody Hep B Core Total Ab Hep B Core IgM Ab Hepatitis Be Antibody Hepatitis Be Antigen Hep C Ab Diagnostic 10/12/18 10/12/18 10/12/18 14:20 16:48 20:46 WBC RBC Hgb Hct MCV MCH MCHC RDW Plt Count MPV Absolute Neuts (auto) Neutrophils % Neutrophils % (Manual) Band Neutrophils % Lymphocytes % Lymphocytes % (Manual) Monocytes % Monocytes % (Manual) Eosinophils % Eosinophils % (Manual) Basophils % Basophils % (Manual) Nucleated RBC % Platelet Estimate PT with INR INR PTT (Actin FS) Anticoagulation Therapy Puncture Site ABG pH ABG pCO2 at Pt Temp ABG pO2 at Pt Temp ABG HCO3 ABG O2 Sat (Measured) ABG O2 Content ABG Base Excess Dane Test VBG pH POC VBG pCO2 POC VBG pO2 VBG HCO3 VBG O2 Sat (Britney) VBG Base Excess Carboxyhemoglobin Methemoglobin O2 Delivery Device Oxygen Flow Rate Vent Mode Vent Rate Mechanical Rate PEEP Pressure Support Vent Sodium Potassium Chloride Carbon Dioxide Anion Gap BUN Creatinine Est GFR (CKD-EPI)AfAm Est GFR (CKD-EPI)NonAf POC Glucometer 148 155 Random Glucose Lactic Acid Calcium Magnesium Total Bilirubin Direct Bilirubin AST ALT Alkaline Phosphatase Creatine Kinase Creatine Kinase Index CK-MB (CK-2) Troponin I Total Protein Albumin Prostate Specific Ag Vitamin K1 Urine Color Urine Appearance Urine pH Ur Specific [place] Urine Protein Urine Glucose (UA) Urine Ketones Urine Blood Urine Nitrite Urine Bilirubin Urine Urobilinogen Ur Leukocyte Esterase Fluid Source Fluid Osmolality 260 POC Fluid pH Fluid WBC Fluid RBC Fluid Neutrophils Fluid Lymphocytes Fluid Glucose Fluid Albumin Body Fluid LDH Source Fluid Triglycerides Pleural Monocytes Pleural Macrophages Pleural Mesothelial Vancomycin Pre-Dose Acetaminophen Hep A IgM Ab Confirm Hepatitis A Ab Total Hep Bs Antigen Hep Bs Antibody Hep B Core Total Ab Hep B Core IgM Ab Hepatitis Be Antibody Hepatitis Be Antigen Hep C Ab Diagnostic 10/13/18 10/13/18 10/13/18 05:15 05:15 05:25 WBC 6.7 RBC 2.96 L Hgb 8.7 L Hct 25.9 L MCV 87.5 MCH 29.5 MCHC 33.7 RDW 14.3 Plt Count 215 MPV 8.0 Absolute Neuts (auto) Neutrophils % Neutrophils % (Manual) Band Neutrophils % Lymphocytes % Lymphocytes % (Manual) Monocytes % Monocytes % (Manual) Eosinophils % Eosinophils % (Manual) Basophils % Basophils % (Manual) Nucleated RBC % Platelet Estimate PT with INR INR PTT (Actin FS) Anticoagulation Therapy Puncture Site ABG pH ABG pCO2 at Pt Temp ABG pO2 at Pt Temp ABG HCO3 ABG O2 Sat (Measured) ABG O2 Content ABG Base Excess Dane Test VBG pH POC VBG pCO2 POC VBG pO2 VBG HCO3 VBG O2 Sat (Britney) VBG Base Excess Carboxyhemoglobin Methemoglobin O2 Delivery Device Oxygen Flow Rate Vent Mode Vent Rate Mechanical Rate PEEP Pressure Support Vent Sodium 137 Potassium 3.7 Chloride 104 Carbon Dioxide 31 Anion Gap 3 L BUN 7.2 Creatinine 0.3 L Est GFR (CKD-EPI)AfAm 149.45 Est GFR (CKD-EPI)NonAf 128.95 POC Glucometer 122 Random Glucose 123 H Lactic Acid Calcium 7.0 L Magnesium Total Bilirubin 0.6 Direct Bilirubin AST 49 H ALT 148 H Alkaline Phosphatase 206 H Creatine Kinase Creatine Kinase Index CK-MB (CK-2) Troponin I Total Protein 4.0 L Albumin 1.3 L Prostate Specific Ag Vitamin K1 Urine Color Urine Appearance Urine pH Ur Specific [place] Urine Protein Urine Glucose (UA) Urine Ketones Urine Blood Urine Nitrite Urine Bilirubin Urine Urobilinogen Ur Leukocyte Esterase Fluid Source Fluid Osmolality POC Fluid pH Fluid WBC Fluid RBC Fluid Neutrophils Fluid Lymphocytes Fluid Glucose Fluid Albumin Body Fluid LDH Source Fluid Triglycerides Pleural Monocytes Pleural Macrophages Pleural Mesothelial Vancomycin Pre-Dose Acetaminophen Hep A IgM Ab Confirm Hepatitis A Ab Total Hep Bs Antigen Hep Bs Antibody Hep B Core Total Ab Hep B Core IgM Ab Hepatitis Be Antibody Hepatitis Be Antigen Hep C Ab Diagnostic 10/13/18 10/13/18 10/13/18 12:08 16:26 22:39 WBC RBC Hgb Hct MCV MCH MCHC RDW Plt Count MPV Absolute Neuts (auto) Neutrophils % Neutrophils % (Manual) Band Neutrophils % Lymphocytes % Lymphocytes % (Manual) Monocytes % Monocytes % (Manual) Eosinophils % Eosinophils % (Manual) Basophils % Basophils % (Manual) Nucleated RBC % Platelet Estimate PT with INR INR PTT (Actin FS) Anticoagulation Therapy Puncture Site ABG pH ABG pCO2 at Pt Temp ABG pO2 at Pt Temp ABG HCO3 ABG O2 Sat (Measured) ABG O2 Content ABG Base Excess Dane Test VBG pH POC VBG pCO2 POC VBG pO2 VBG HCO3 VBG O2 Sat (Britney) VBG Base Excess Carboxyhemoglobin Methemoglobin O2 Delivery Device Oxygen Flow Rate Vent Mode Vent Rate Mechanical Rate PEEP Pressure Support Vent Sodium Potassium Chloride Carbon Dioxide Anion Gap BUN Creatinine Est GFR (CKD-EPI)AfAm Est GFR (CKD-EPI)NonAf POC Glucometer 136 129 123 Random Glucose Lactic Acid Calcium Magnesium Total Bilirubin Direct Bilirubin AST ALT Alkaline Phosphatase Creatine Kinase Creatine Kinase Index CK-MB (CK-2) Troponin I Total Protein Albumin Prostate Specific Ag Vitamin K1 Urine Color Urine Appearance Urine pH Ur Specific [place] Urine Protein Urine Glucose (UA) Urine Ketones Urine Blood Urine Nitrite Urine Bilirubin Urine Urobilinogen Ur Leukocyte Esterase Fluid Source Fluid Osmolality POC Fluid pH Fluid WBC Fluid RBC Fluid Neutrophils Fluid Lymphocytes Fluid Glucose Fluid Albumin Body Fluid LDH Source Fluid Triglycerides Pleural Monocytes Pleural Macrophages Pleural Mesothelial Vancomycin Pre-Dose Acetaminophen Hep A IgM Ab Confirm Hepatitis A Ab Total Hep Bs Antigen Hep Bs Antibody Hep B Core Total Ab Hep B Core IgM Ab Hepatitis Be Antibody Hepatitis Be Antigen Hep C Ab Diagnostic 10/14/18 10/14/18 10/14/18 05:27 05:52 11:34 WBC RBC Hgb Hct MCV MCH MCHC RDW Plt Count MPV Absolute Neuts (auto) Neutrophils % Neutrophils % (Manual) Band Neutrophils % Lymphocytes % Lymphocytes % (Manual) Monocytes % Monocytes % (Manual) Eosinophils % Eosinophils % (Manual) Basophils % Basophils % (Manual) Nucleated RBC % Platelet Estimate PT with INR INR PTT (Actin FS) Anticoagulation Therapy No Result Required. Puncture Site Right radial ABG pH 7.48 H ABG pCO2 at Pt Temp 38.2 ABG pO2 at Pt Temp 265 H ABG HCO3 28.2 H ABG O2 Sat (Measured) 100.0 H ABG O2 Content 12.4 L ABG Base Excess 4.8 H Dane Test Positive VBG pH POC VBG pCO2 POC VBG pO2 VBG HCO3 VBG O2 Sat (Britney) VBG Base Excess Carboxyhemoglobin Methemoglobin O2 Delivery Device Vent Oxygen Flow Rate 100% Vent Mode No Result Required. Vent Rate 10 Mechanical Rate No Result Required. PEEP 5.0 Pressure Support Vent 500 Sodium Potassium Chloride Carbon Dioxide Anion Gap BUN Creatinine Est GFR (CKD-EPI)AfAm Est GFR (CKD-EPI)NonAf POC Glucometer 104 140 Random Glucose Lactic Acid Calcium Magnesium Total Bilirubin Direct Bilirubin AST ALT Alkaline Phosphatase Creatine Kinase Creatine Kinase Index CK-MB (CK-2) Troponin I Total Protein Albumin Prostate Specific Ag Vitamin K1 Urine Color Urine Appearance Urine pH Ur Specific [place] Urine Protein Urine Glucose (UA) Urine Ketones Urine Blood Urine Nitrite Urine Bilirubin Urine Urobilinogen Ur Leukocyte Esterase Fluid Source Fluid Osmolality POC Fluid pH Fluid WBC Fluid RBC Fluid Neutrophils Fluid Lymphocytes Fluid Glucose Fluid Albumin Body Fluid LDH Source Fluid Triglycerides Pleural Monocytes Pleural Macrophages Pleural Mesothelial Vancomycin Pre-Dose Acetaminophen Hep A IgM Ab Confirm Hepatitis A Ab Total Hep Bs Antigen Hep Bs Antibody Hep B Core Total Ab Hep B Core IgM Ab Hepatitis Be Antibody Hepatitis Be Antigen Hep C Ab Diagnostic 10/14/18 10/14/18 10/15/18 18:30 21:53 05:36 WBC RBC Hgb Hct MCV MCH MCHC RDW Plt Count MPV Absolute Neuts (auto) Neutrophils % Neutrophils % (Manual) Band Neutrophils % Lymphocytes % Lymphocytes % (Manual) Monocytes % Monocytes % (Manual) Eosinophils % Eosinophils % (Manual) Basophils % Basophils % (Manual) Nucleated RBC % Platelet Estimate PT with INR INR PTT (Actin FS) Anticoagulation Therapy Puncture Site ABG pH ABG pCO2 at Pt Temp ABG pO2 at Pt Temp ABG HCO3 ABG O2 Sat (Measured) ABG O2 Content ABG Base Excess Dane Test VBG pH POC VBG pCO2 POC VBG pO2 VBG HCO3 VBG O2 Sat (Britney) VBG Base Excess Carboxyhemoglobin Methemoglobin O2 Delivery Device Oxygen Flow Rate Vent Mode Vent Rate Mechanical Rate PEEP Pressure Support Vent Sodium Potassium Chloride Carbon Dioxide Anion Gap BUN Creatinine Est GFR (CKD-EPI)AfAm Est GFR (CKD-EPI)NonAf POC Glucometer 127 122 126 Random Glucose Lactic Acid Calcium Magnesium Total Bilirubin Direct Bilirubin AST ALT Alkaline Phosphatase Creatine Kinase Creatine Kinase Index CK-MB (CK-2) Troponin I Total Protein Albumin Prostate Specific Ag Vitamin K1 Urine Color Urine Appearance Urine pH Ur Specific [place] Urine Protein Urine Glucose (UA) Urine Ketones Urine Blood Urine Nitrite Urine Bilirubin Urine Urobilinogen Ur Leukocyte Esterase Fluid Source Fluid Osmolality POC Fluid pH Fluid WBC Fluid RBC Fluid Neutrophils Fluid Lymphocytes Fluid Glucose Fluid Albumin Body Fluid LDH Source Fluid Triglycerides Pleural Monocytes Pleural Macrophages Pleural Mesothelial Vancomycin Pre-Dose Acetaminophen Hep A IgM Ab Confirm Hepatitis A Ab Total Hep Bs Antigen Hep Bs Antibody Hep B Core Total Ab Hep B Core IgM Ab Hepatitis Be Antibody Hepatitis Be Antigen Hep C Ab Diagnostic 10/15/18 10/15/18 10/15/18 06:40 06:40 11:31 WBC 5.3 RBC 2.78 L Hgb 8.1 L Hct 24.6 L MCV 88.5 MCH 29.0 MCHC 32.7 RDW 14.8 Plt Count 241 MPV 8.0 Absolute Neuts (auto) Neutrophils % Neutrophils % (Manual) Band Neutrophils % Lymphocytes % Lymphocytes % (Manual) Monocytes % Monocytes % (Manual) Eosinophils % Eosinophils % (Manual) Basophils % Basophils % (Manual) Nucleated RBC % Platelet Estimate PT with INR INR PTT (Actin FS) Anticoagulation Therapy Puncture Site ABG pH ABG pCO2 at Pt Temp ABG pO2 at Pt Temp ABG HCO3 ABG O2 Sat (Measured) ABG O2 Content ABG Base Excess Dane Test VBG pH POC VBG pCO2 POC VBG pO2 VBG HCO3 VBG O2 Sat (Britney) VBG Base Excess Carboxyhemoglobin Methemoglobin O2 Delivery Device Oxygen Flow Rate Vent Mode Vent Rate Mechanical Rate PEEP Pressure Support Vent Sodium 137 Potassium 4.1 Chloride 102 Carbon Dioxide 28 Anion Gap 8 BUN 13.2 Creatinine 0.2 L Est GFR (CKD-EPI)AfAm 176.55 Est GFR (CKD-EPI)NonAf 152.33 POC Glucometer 107 Random Glucose 106 Lactic Acid Calcium 7.1 L Magnesium Total Bilirubin 0.4 Direct Bilirubin AST 68 H ALT 145 H Alkaline Phosphatase 198 H Creatine Kinase Creatine Kinase Index CK-MB (CK-2) Troponin I Total Protein 4.3 L Albumin 1.3 L Prostate Specific Ag Vitamin K1 Urine Color Urine Appearance Urine pH Ur Specific [place] Urine Protein Urine Glucose (UA) Urine Ketones Urine Blood Urine Nitrite Urine Bilirubin Urine Urobilinogen Ur Leukocyte Esterase Fluid Source Fluid Osmolality POC Fluid pH Fluid WBC Fluid RBC Fluid Neutrophils Fluid Lymphocytes Fluid Glucose Fluid Albumin Body Fluid LDH Source Fluid Triglycerides Pleural Monocytes Pleural Macrophages Pleural Mesothelial Vancomycin Pre-Dose Acetaminophen Hep A IgM Ab Confirm Hepatitis A Ab Total Hep Bs Antigen Hep Bs Antibody Hep B Core Total Ab Hep B Core IgM Ab Hepatitis Be Antibody Hepatitis Be Antigen Hep C Ab Diagnostic 10/15/18 10/15/18 10/16/18 18:13 21:11 06:28 WBC RBC Hgb Hct MCV MCH MCHC RDW Plt Count MPV Absolute Neuts (auto) Neutrophils % Neutrophils % (Manual) Band Neutrophils % Lymphocytes % Lymphocytes % (Manual) Monocytes % Monocytes % (Manual) Eosinophils % Eosinophils % (Manual) Basophils % Basophils % (Manual) Nucleated RBC % Platelet Estimate PT with INR INR PTT (Actin FS) Anticoagulation Therapy Puncture Site ABG pH ABG pCO2 at Pt Temp ABG pO2 at Pt Temp ABG HCO3 ABG O2 Sat (Measured) ABG O2 Content ABG Base Excess Dane Test VBG pH POC VBG pCO2 POC VBG pO2 VBG HCO3 VBG O2 Sat (Britney) VBG Base Excess Carboxyhemoglobin Methemoglobin O2 Delivery Device Oxygen Flow Rate Vent Mode Vent Rate Mechanical Rate PEEP Pressure Support Vent Sodium Potassium Chloride Carbon Dioxide Anion Gap BUN Creatinine Est GFR (CKD-EPI)AfAm Est GFR (CKD-EPI)NonAf POC Glucometer 134 139 132 Random Glucose Lactic Acid Calcium Magnesium Total Bilirubin Direct Bilirubin AST ALT Alkaline Phosphatase Creatine Kinase Creatine Kinase Index CK-MB (CK-2) Troponin I Total Protein Albumin Prostate Specific Ag Vitamin K1 Urine Color Urine Appearance Urine pH Ur Specific [place] Urine Protein Urine Glucose (UA) Urine Ketones Urine Blood Urine Nitrite Urine Bilirubin Urine Urobilinogen Ur Leukocyte Esterase Fluid Source Fluid Osmolality POC Fluid pH Fluid WBC Fluid RBC Fluid Neutrophils Fluid Lymphocytes Fluid Glucose Fluid Albumin Body Fluid LDH Source Fluid Triglycerides Pleural Monocytes Pleural Macrophages Pleural Mesothelial Vancomycin Pre-Dose Acetaminophen Hep A IgM Ab Confirm Hepatitis A Ab Total Hep Bs Antigen Hep Bs Antibody Hep B Core Total Ab Hep B Core IgM Ab Hepatitis Be Antibody Hepatitis Be Antigen Hep C Ab Diagnostic 10/18/18 10/18/18 10/19/18 06:00 06:00 08:08 WBC 5.5 7.2 RBC 2.85 L 2.84 L Hgb 8.3 L 8.2 L Hct 24.9 L 24.7 L MCV 87.2 86.9 MCH 29.1 28.9 MCHC 33.3 33.3 RDW 15.2 15.4 Plt Count 205 199 MPV 7.9 7.7 Absolute Neuts (auto) Neutrophils % Neutrophils % (Manual) Band Neutrophils % Lymphocytes % Lymphocytes % (Manual) Monocytes % Monocytes % (Manual) Eosinophils % Eosinophils % (Manual) Basophils % Basophils % (Manual) Nucleated RBC % Platelet Estimate PT with INR INR PTT (Actin FS) Anticoagulation Therapy Puncture Site ABG pH ABG pCO2 at Pt Temp ABG pO2 at Pt Temp ABG HCO3 ABG O2 Sat (Measured) ABG O2 Content ABG Base Excess Dane Test VBG pH POC VBG pCO2 POC VBG pO2 VBG HCO3 VBG O2 Sat (Britney) VBG Base Excess Carboxyhemoglobin Methemoglobin O2 Delivery Device Oxygen Flow Rate Vent Mode Vent Rate Mechanical Rate PEEP Pressure Support Vent Sodium 134 L Potassium 3.7 Chloride 98 Carbon Dioxide 32 Anion Gap 4 L BUN 16.8 Creatinine 0.3 L Est GFR (CKD-EPI)AfAm 149.45 Est GFR (CKD-EPI)NonAf 128.95 POC Glucometer Random Glucose 125 H Lactic Acid Calcium 7.2 L Magnesium Total Bilirubin 0.4 Direct Bilirubin 0.3 H AST 140 H ALT 237 H Alkaline Phosphatase 217 H Creatine Kinase Creatine Kinase Index CK-MB (CK-2) Troponin I Total Protein 4.4 L Albumin 1.3 L Prostate Specific Ag Vitamin K1 Urine Color Urine Appearance Urine pH Ur Specific [place] Urine Protein Urine Glucose (UA) Urine Ketones Urine Blood Urine Nitrite Urine Bilirubin Urine Urobilinogen Ur Leukocyte Esterase Fluid Source Fluid Osmolality POC Fluid pH Fluid WBC Fluid RBC Fluid Neutrophils Fluid Lymphocytes Fluid Glucose Fluid Albumin Body Fluid LDH Source Fluid Triglycerides Pleural Monocytes Pleural Macrophages Pleural Mesothelial Vancomycin Pre-Dose Acetaminophen Hep A IgM Ab Confirm Hepatitis A Ab Total Hep Bs Antigen Hep Bs Antibody Hep B Core Total Ab Hep B Core IgM Ab Hepatitis Be Antibody Hepatitis Be Antigen Hep C Ab Diagnostic 10/19/18 10/20/18 10/20/18 08:08 09:03 09:03 WBC 5.2 RBC 2.97 L Hgb 8.5 L Hct 25.6 L MCV 86.4 MCH 28.6 MCHC 33.1 RDW 15.7 Plt Count 192 MPV 7.8 Absolute Neuts (auto) Neutrophils % Neutrophils % (Manual) Band Neutrophils % Lymphocytes % Lymphocytes % (Manual) Monocytes % Monocytes % (Manual) Eosinophils % Eosinophils % (Manual) Basophils % Basophils % (Manual) Nucleated RBC % Platelet Estimate PT with INR INR PTT (Actin FS) Anticoagulation Therapy Puncture Site ABG pH ABG pCO2 at Pt Temp ABG pO2 at Pt Temp ABG HCO3 ABG O2 Sat (Measured) ABG O2 Content ABG Base Excess Dane Test VBG pH POC VBG pCO2 POC VBG pO2 VBG HCO3 VBG O2 Sat (Britney) VBG Base Excess Carboxyhemoglobin Methemoglobin O2 Delivery Device Oxygen Flow Rate Vent Mode Vent Rate Mechanical Rate PEEP Pressure Support Vent Sodium 133 L 135 L Potassium 3.7 3.8 Chloride 97 L 97 L Carbon Dioxide 31 33 H Anion Gap 5 L 5 L BUN 14.2 16.2 Creatinine 0.3 L 0.3 L Est GFR (CKD-EPI)AfAm 149.45 149.45 Est GFR (CKD-EPI)NonAf 128.95 128.95 POC Glucometer Random Glucose 125 H 126 H Lactic Acid Calcium 7.4 L 7.6 L Magnesium Total Bilirubin 0.5 0.4 Direct Bilirubin AST 85 H 66 H ALT 200 H 170 H Alkaline Phosphatase 228 H 236 H Creatine Kinase Creatine Kinase Index CK-MB (CK-2) Troponin I Total Protein 4.5 L 4.8 L Albumin 1.4 L 1.5 L Prostate Specific Ag Vitamin K1 Urine Color Urine Appearance Urine pH Ur Specific [place] Urine Protein Urine Glucose (UA) Urine Ketones Urine Blood Urine Nitrite Urine Bilirubin Urine Urobilinogen Ur Leukocyte Esterase Fluid Source Fluid Osmolality POC Fluid pH Fluid WBC Fluid RBC Fluid Neutrophils Fluid Lymphocytes Fluid Glucose Fluid Albumin Body Fluid LDH Source Fluid Triglycerides Pleural Monocytes Pleural Macrophages Pleural Mesothelial Vancomycin Pre-Dose Acetaminophen Hep A IgM Ab Confirm Hepatitis A Ab Total Hep Bs Antigen Hep Bs Antibody Hep B Core Total Ab Hep B Core IgM Ab Hepatitis Be Antibody Hepatitis Be Antigen Hep C Ab Diagnostic 10/20/18 09:03 WBC RBC Hgb Hct MCV MCH MCHC RDW Plt Count MPV Absolute Neuts (auto) Neutrophils % Neutrophils % (Manual) Band Neutrophils % Lymphocytes % Lymphocytes % (Manual) Monocytes % Monocytes % (Manual) Eosinophils % Eosinophils % (Manual) Basophils % Basophils % (Manual) Nucleated RBC % Platelet Estimate PT with INR INR PTT (Actin FS) Anticoagulation Therapy Puncture Site ABG pH ABG pCO2 at Pt Temp ABG pO2 at Pt Temp ABG HCO3 ABG O2 Sat (Measured) ABG O2 Content ABG Base Excess Dane Test VBG pH POC VBG pCO2 POC VBG pO2 VBG HCO3 VBG O2 Sat (Britney) VBG Base Excess Carboxyhemoglobin Methemoglobin O2 Delivery Device Oxygen Flow Rate Vent Mode Vent Rate Mechanical Rate PEEP Pressure Support Vent Sodium Potassium Chloride Carbon Dioxide Anion Gap BUN Creatinine Est GFR (CKD-EPI)AfAm Est GFR (CKD-EPI)NonAf POC Glucometer Random Glucose Lactic Acid Calcium Magnesium Total Bilirubin Direct Bilirubin AST ALT Alkaline Phosphatase Creatine Kinase Creatine Kinase Index CK-MB (CK-2) Troponin I Total Protein Albumin Prostate Specific Ag < 0.10 Vitamin K1 Urine Color Urine Appearance Urine pH Ur Specific [place] Urine Protein Urine Glucose (UA) Urine Ketones Urine Blood Urine Nitrite Urine Bilirubin Urine Urobilinogen Ur Leukocyte Esterase Fluid Source Fluid Osmolality POC Fluid pH Fluid WBC Fluid RBC Fluid Neutrophils Fluid Lymphocytes Fluid Glucose Fluid Albumin Body Fluid LDH Source Fluid Triglycerides Pleural Monocytes Pleural Macrophages Pleural Mesothelial Vancomycin Pre-Dose Acetaminophen Hep A IgM Ab Confirm Hepatitis A Ab Total Hep Bs Antigen Hep Bs Antibody Hep B Core Total Ab Hep B Core IgM Ab Hepatitis Be Antibody Hepatitis Be Antigen Hep C Ab Diagnostic Active Medications Generic Name Dose Route Start Last Admin Trade Name Freq PRN Reason Stop Dose Admin Morphine Sulfate 100 mg in 100 mls @ 1 mls/hr 10/20/18 11:00 10/22/18 04:10 Morphine 100mg/100ml-0.9% Nacl IVPB 5 mg/hr TITR LUTHER 5 mls/hr Infusion Protocol 1 MG/HR Lorazepam 1 mg 10/21/18 11:30 Ativan Injection - IVPUSH PRN PRN RESTLESSNESS Morphine Sulfate 2 mg 10/21/18 11:29 10/22/18 01:29 Morphine Sulfate IVPUSH 2 mg PRN PRN Administration RESPIRATORY DISTRESS Microbiology 10/12/18 14:20 Pleural Fluid Gram Stain - Final 10/12/18 14:20 Pleural Fluid Body Fluid Culture - Final NO GROWTH OF AEROBIC ORGANISMS AFTER 48 HOURS INCUBATION 10/12/18 14:20 Pleural Fluid Anaerobic Culture - Final NO ANAEROBES WERE ISOLATED 10/07/18 18:03 Blood - Peripheral Venous Blood Culture - Final NO GROWTH AFTER 5 DAYS INCUBATION 10/07/18 18:03 Blood - Peripheral Venous Blood Culture - Final NO GROWTH AFTER 5 DAYS INCUBATION 10/10/18 19:02 Urine For Antigen Detection Legionella Antigen - Final 10/10/18 19:02 Urine For Antigen Detection Streptococcus pneumoniae Antigen (M - Final 10/08/18 10:15 Sputum - Endotrachea Suction/Ventilator Gram Stain - Final 10/08/18 10:15 Sputum - Endotrachea Suction/Ventilator Sputum Culture - Final Enterobacter Cloacae 10/07/18 18:03 Urine - Urine Hinkle Urine Culture - Final Yeast Like Organism Condition: - Instructions - Home Medications Comprehensive Discharge Medication List: Ambulatory Orders Acetaminophen [Tylenol] 650 mg GT Q8H 10/07/18 Amantadine HCl [Amantadine] 100 mg GT BID 10/07/18 Famotidine [Pepcid -] 20 mg GT BID 10/07/18 Finasteride 5 mg GT DAILY 10/07/18 Heparin - 5,000 unit SQ TID 10/07/18 levoFLOXacin 750 MG IVPB [Levaquin 750 mg Premixed Ivpb -] 750 mg IVPB DAILY
== END 2018-10-22 10:46 | disposition expired | DRG 870 ==
LOC: JER 17:22 → JERBED 22:17 → JICU 10-08 01:16 → J5S 10-13 17:17
PROVIDERS: ADMIT Family Medicine; ATTEND Family Medicine
PROC: 5A1955Z Respiratory Ventilation, Greater than 96 Consecutive Hours (ICD-10-PCS; principal; 2018-10-07)
PROC: 0W9B30Z Drainage of Left Pleural Cavity with Drainage Device, Percutaneous Approach (ICD-10-PCS; 2018-10-12)
DX: A41.9 Sepsis, unspecified organism (principal); J18.9 Pneumonia, unspecified organism; J96.21 Acute and chronic respiratory failure with hypoxia; E87.1 Hypo-osmolality and hyponatremia; J90 Pleural effusion, not elsewhere classified; D68.9 Coagulation defect, unspecified; R65.20 Severe sepsis without septic shock; Z93.0 Tracheostomy status; Z87.820 Personal history of traumatic brain injury; Z93.1 Gastrostomy status; Z86.74 Personal history of sudden cardiac arrest; G20 Parkinson's disease; R74.0 Nonspecific elevation of levels of transaminase and lactic acid dehydrogenase [LDH]; Z95.0 Presence of cardiac pacemaker; I48.91 Unspecified atrial fibrillation; R94.5 Abnormal results of liver function studies; I36.1 Nonrheumatic tricuspid (valve) insufficiency; I35.1 Nonrheumatic aortic (valve) insufficiency; E87.8 Other disorders of electrolyte and fluid balance, not elsewhere classified; K81.9 Cholecystitis, unspecified; Z66 Do not resuscitate
CPT/HCPCS: 36415; 36600; 70450-TC; 71045-TC-FY; 71250-TC; 72125-TC; 76705-TC; 80048; 80053; 80076; 80307; 81003; 82042; 82375; 82550; 82553; 82803; 82945; 82962; 83050; 83605; 83615; 83735; 83986; 84153; 84478; 84484; 84597; 85025; 85027; 85610; 85730; 86704; 86706; 86707; 86708; 86709; 86803; 87040; 87070; 87075; 87077; 87086; 87186; 87205; 87340; 87899; 88108; 88305-TC; 90670; 93005; 93010; 93306-TC; 94002; 99284-25; G0480; J0131; J1644; J7030